=== PATIENT | male | born 1945 | race Caucasian/White ===

== ENCOUNTER 2020-01-09 20:53 | Inpatient (IN) | payer OTHER ==
[2020-01-09 21:14] VITALS: BMI 26.6
[2020-01-09] MEDS ORDERED: SODIUM CHLORIDE 0.9% 500 ML INFUS.BAG IV ONE (21:18)
[2020-01-09] MEDS ORDERED: ACETAMINOPHEN 1000 MG/100 ML VIAL (NON FORMULARY) IVPB ONE (21:18)
--- NOTE | 2020-01-09 21:21 | PDOC ---
History of Present Illness - General Chief Complaint: SIRS, Suspected/Possible Stated Complaint: CHEST PAIN Time Seen by Provider: 01/09/20 21:06 - History of Present Illness Initial Comments: Randy Platt is a 74 y/o male with PMH significant for HTN, HLD, DM, presenting today fever and cough for the past couple of days. Per daughter she noticed that he was not acting like himself. Brought him to urgent care where he was found to be hypoxic 93% and sent to ED by EMS. Pt reports cough over the past few days but denies chest pain or shortness of breath. No headache. Febrile on presentation. No dizziness. No abd pain. No dysuria/diarrhea. No nausea/vomiting. Denies sick contacts. Retired. SocHx: lives alone, 40 pack year smoking hx, snorts heroin every few weeks, no IVDA Past History - Medical History Allergies/Adverse Reactions: Allergies Allergy/AdvReac Type Severity Reaction Status Date / Time No Known Allergies Allergy Verified 01/09/20 21:14 Home Medications: Ambulatory Orders Ergocalciferol [Drisdol -] 50,000 unit PO WEEKLY 01/11/14 Fluocinonide 0.05% Gel [Lidex 0.05% Gel -] 1 applic TP DAILY 01/11/14 Lisinopril/Hydrochlorothiazide [Lisinopril-Hctz 20-25 mg Tab] 1 each PO DAILY 01/11/14 Methadone HCl 80 mg PO DAILY 01/11/14 Quetiapine Fumarate [Seroquel -] 100 mg PO HS 01/11/14 Zolpidem Tartrate [Ambien] 10 mg PO HS 08/01/14 Nicotine Patch [Nicoderm Patch -] 1 patch TD DAILY #30 patch 05/06/16 Acetaminophen 325 mg PO QID 06/20/16 Baclofen [Lioresal -] 10 mg PO TID 06/20/16 Gabapentin [Neurontin -] 400 mg PO Q8H 06/20/16 Quetiapine Fumarate [Seroquel -] 50 mg PO HS #30 tablet 06/16/18 Amlodipine Besylate [Norvasc -] 10 mg PO DAILY 01/10/20 Asthma: No CVA: No COPD: No Diabetes: Yes HTN: Yes Hypercholesterolemia: Yes Liver Disease: No Seizures: No - Surgical History Abdominal Surgery: No Appendectomy: No Cardiac Surgery: No Cholecystectomy: No Lung Surgery: No Orthopedic Surgery: No - Psycho-Social/Smoking History Smoking History: Current every day smoker Have you smoked in the past 12 months: Yes Number of Cigarettes Smoked Daily: 20 Information on smoking cessation initiated: Yes 'Breaking Loose' booklet given: 05/01/15 (given previous visit) - Substance Abuse Hx (Audit-C & DAST Scrn) How often the patient has a drink containing alcohol: Never Score: In Men: 4 or > Positive; In Women: 3 or > Positive: 0 Screen Result (Pos requires Nsg. Audit-10AR): Negative In the last yr the pt used illegal drug/Rx for NonMed reason: No Score: Yes response is considered Positive: 0 Screen Result (Positive result requires Nsg. DAST-10): Negative Review of Systems - Review of Systems Comments:: GENERAL/CONSTITUTIONAL: Reports fever. No chills. No weakness._ HEAD, EYES, EARS, NOSE AND THROAT: No change in vision. No change in hearing. No sore throat._ CARDIOVASCULAR: No chest pain or shortness of breath_ RESPIRATORY: Reports cough. GASTROINTESTINAL: No nausea, vomiting, diarrhea or constipation._ GENITOURINARY: No dysuria, frequency, or change in urination._ MUSCULOSKELETAL: No joint or muscle swelling or pain. No neck pain. SKIN: No rash_ NEUROLOGIC: No headache, vertigo, loss of consciousness, or change in strength/sensation._ ENDOCRINE: No increased thirst. No abnormal weight change_ HEMATOLOGIC/LYMPHATIC: No anemia, easy bleeding, or history of blood clots._ ALLERGIC/IMMUNOLOGIC: No hives or skin allergy._ *Physical Exam - Vital Signs Last Vital Signs Temp Pulse Resp BP Pulse Ox 100.3 F H 95 H 18 162/96 95 01/09/20 21:12 01/09/20 21:12 01/09/20 21:12 01/09/20 21:12 01/09/20 21:12 - Physical Exam GENERAL: Awake, alert, and oriented to person/place/time, in no acute distress_ HEAD: No signs of trauma, normocephalic, atraumatic _ EYES: PERRLA, EOMI, sclera anicteric, conjunctiva clear_ ENT: Hearing grossly normal, nares patent, oropharynx clear without exudates. No uvular deviation. Moist mucosa_ NECK: Normal ROM, supple, no lymphadenopathy, JVD, or masses_ LUNGS: No distress, speaks in full sentences, clear to auscultation bilaterally _ HEART: Regular rate and rhythm, normal S1 and S2, no murmurs appreciated, peripheral pulses normal and equal bilaterally._ ABDOMEN: Soft, nontender, protuberant, normoactive bowel sounds. No guarding, no rebound. No masses_ EXTREMITIES: Normal inspection, Normal range of motion, no edema. No clubbing or cyanosis_ NEUROLOGICAL: Cranial nerves II through XII grossly intact. Normal speech, normal gait, no focal sensorimotor deficits _ SKIN: Warm, Dry, normal turgor, no rashes or lesions noted_ ED Treatment Course - LABORATORY CBC & Chemistry Diagram: 01/10/20 09:43 01/10/20 09:43 - RADIOLOGY Radiology Studies Ordered: Category Date Time Status CHEST X-RAY PORTABLE* [RAD] Stat Radiology 01/09/20 21:16 Ordered Medical Decision Making - Medical Decision Making 74M hx of HTN HLD DM presenting today with fever, cough, and malaise for the past few days. Sent in from urgent care for hypoxia. No shortness of breath or tachypnea. DDX includes PNA vs UTI vs sepsis. -cbc, cmp -ekg, trop, cxr -lactic -coags -ua, ucx -blood cx -vbg -fluids -tylenol 01/09/20 22:57 Labs reviewed. Laboratory Last Values WBC 7.2 K/mm3 (4.0-10.0) 01/09/20 21:11 RBC 4.64 M/mm3 (4.00-5.60) 01/09/20 21:11 Hgb 14.6 GM/dL (11.7-16.9) 01/09/20 21:11 Hct 42.9 % (35.4-49) 01/09/20 21:11 MCV 92.4 fl (80-96) 01/09/20 21:11 MCH 31.5 pg (25.7-33.7) 01/09/20 21:11 MCHC 34.1 g/dl (32.0-35.9) 01/09/20 21:11 RDW 14.1 % (11.9-15.9) 01/09/20 21:11 Plt Count 329 K/MM3 (134-434) 01/09/20 21:11 MPV 7.3 fl (7.5-11.1) L D 01/09/20 21:11 Absolute Neuts (auto) 3.6 K/mm3 (1.5-8.0) 01/09/20 21:11 Neutrophils % 50.7 % (42.8-82.8) 01/09/20 21:11 Lymphocytes % 38.6 % (8-40) 01/09/20 21:11 Monocytes % 9.4 % (3.8-10.2) 01/09/20 21:11 Eosinophils % 1.1 % (0-4.5) 01/09/20 21:11 Basophils % 0.2 % (0-2.0) 01/09/20 21:11 Nucleated RBC % 0 % (0-0) 01/09/20 21:11 Sodium 137 mmol/L (136-145) 01/09/20 21:11 Potassium 3.9 mmol/L (3.5-5.1) 01/09/20 21:11 Chloride 102 mmol/L (98-107) 01/09/20 21:11 Carbon Dioxide 29 mmol/L (21-32) 01/09/20 21:11 Anion Gap 6 MMOL/L (8-16) L 01/09/20 21:11 BUN 10.6 mg/dL (7-18) 01/09/20 21:11 Creatinine 0.9 mg/dL (0.55-1.3) 01/09/20 21:11 Est GFR (CKD-EPI)AfAm 97.86 01/09/20 21:11 Est GFR (CKD-EPI)NonAf 84.43 01/09/20 21:11 Random Glucose 96 mg/dL (74-106) 01/09/20 21:11 Lactic Acid 1.3 mmol/L (0.4-2.0) 01/09/20 22:00 Calcium 9.0 mg/dL (8.5-10.1) 01/09/20 21:11 Total Bilirubin 0.6 mg/dL (0.2-1) 01/09/20 21:11 AST 30 U/L (15-37) 01/09/20 21:11 ALT 62 U/L (13-61) H 01/09/20 21:11 Alkaline Phosphatase 80 U/L (45-117) 01/09/20 21:11 Troponin I < 0.02 ng/ml (0.00-0.05) 01/09/20 21:11 Total Protein 7.6 g/dl (6.4-8.2) 01/09/20 21:11 Albumin 3.4 g/dl (3.4-5.0) 01/09/20 21:11 01/09/20 23:38 UA reviewed. Laboratory Last Values WBC 7.2 K/mm3 (4.0-10.0) 01/09/20 21:11 RBC 4.64 M/mm3 (4.00-5.60) 01/09/20 21:11 Hgb 14.6 GM/dL (11.7-16.9) 01/09/20 21:11 Hct 42.9 % (35.4-49) 01/09/20 21:11 MCV 92.4 fl (80-96) 01/09/20 21:11 MCH 31.5 pg (25.7-33.7) 01/09/20 21:11 MCHC 34.1 g/dl (32.0-35.9) 01/09/20 21:11 RDW 14.1 % (11.9-15.9) 01/09/20 21:11 Plt Count 329 K/MM3 (134-434) 01/09/20 21:11 MPV 7.3 fl (7.5-11.1) L D 01/09/20 21:11 Absolute Neuts (auto) 3.6 K/mm3 (1.5-8.0) 01/09/20 21:11 Neutrophils % 50.7 % (42.8-82.8) 01/09/20 21:11 Lymphocytes % 38.6 % (8-40) 01/09/20 21:11 Monocytes % 9.4 % (3.8-10.2) 01/09/20 21:11 Eosinophils % 1.1 % (0-4.5) 01/09/20 21:11 Basophils % 0.2 % (0-2.0) 01/09/20 21:11 Nucleated RBC % 0 % (0-0) 01/09/20 21:11 PT with INR 12.10 SEC (9.7-13.0) 01/09/20 21:45 INR 1.03 (0.83-1.09) 01/09/20 21:45 PTT (Actin FS) 27.2 SECONDS (25.2-36.5) 01/09/20 21:45 VBG pH 7.399 (7.310-7.410) 01/09/20 21:45 POC VBG pCO2 34.7 mmHg (38-52) L 01/09/20 21:45 POC VBG pO2 49.8 mmHg (28-48) H 01/09/20 21:45 VBG HCO3 21.0 mmol/L (23-29) L 01/09/20 21:45 VBG O2 Sat (Angel) 85.6 % (70-80) H 01/09/20 21:45 VBG Base Excess -3.2 mmol/L (-2-2) L 01/09/20 21:45 Sodium 137 mmol/L (136-145) 01/09/20 21:11 Potassium 3.9 mmol/L (3.5-5.1) 01/09/20 21:11 Chloride 102 mmol/L (98-107) 01/09/20 21:11 Carbon Dioxide 29 mmol/L (21-32) 01/09/20 21:11 Anion Gap 6 MMOL/L (8-16) L 01/09/20 21:11 BUN 10.6 mg/dL (7-18) 01/09/20 21:11 Creatinine 0.9 mg/dL (0.55-1.3) 01/09/20 21:11 Est GFR (CKD-EPI)AfAm 97.86 01/09/20 21:11 Est GFR (CKD-EPI)NonAf 84.43 01/09/20 21:11 Random Glucose 96 mg/dL (74-106) 01/09/20 21:11 Lactic Acid 1.3 mmol/L (0.4-2.0) 01/09/20 22:00 Calcium 9.0 mg/dL (8.5-10.1) 01/09/20 21:11 Total Bilirubin 0.6 mg/dL (0.2-1) 01/09/20 21:11 AST 30 U/L (15-37) 01/09/20 21:11 ALT 62 U/L (13-61) H 01/09/20 21:11 Alkaline Phosphatase 80 U/L (45-117) 01/09/20 21:11 Troponin I < 0.02 ng/ml (0.00-0.05) 01/09/20 21:11 Total Protein 7.6 g/dl (6.4-8.2) 01/09/20 21:11 Albumin 3.4 g/dl (3.4-5.0) 01/09/20 21:11 Urine Color Yellow 01/09/20 22:50 Urine Appearance Clear 01/09/20 22:50 Urine pH 5.0 (5.0-8.0) D 01/09/20 22:50 Ur Specific [place] 1.008 (1.010-1.035) L 01/09/20 22:50 Urine Protein Negative (NEGATIVE) 01/09/20 22:50 Urine Glucose (UA) Negative (NEGATIVE) 01/09/20 22:50 Urine Ketones Negative (NEGATIVE) 01/09/20 22:50 Urine Blood 1+ (NEGATIVE) H 01/09/20 22:50 Urine Nitrite Negative (NEGATIVE) 01/09/20 22:50 Urine Bilirubin Negative (NEGATIVE) 01/09/20 22:50 Urine Urobilinogen 0.2 mg/dL (0.2-1.0) 01/09/20 22:50 Ur Leukocyte Esterase Negative (NEGATIVE) 01/09/20 22:50 Urine WBC (Auto) 3 /uL (0-25.8) 01/09/20 22:50 Urine RBC (Auto) 7 /uL (0-23.9) 01/09/20 22:50 Urine Casts (Auto) 0 /uL (0-3.1) 01/09/20 22:50 U Epithel Cells (Auto) 2 /uL (0-25.1) 01/09/20 22:50 Urine Bacteria (Auto) 27 /uL (0-1359) 01/09/20 22:50 Pt sats 98% on 2L, 94% on room air. Resting comfortably in bed, but feels short of breath on exertion. 01/10/20 01:22 CT chest shows Emphysematous changes are noted predominantly in the upper lobes with multiple small blebs/early honeycombing. There are also mild peripheral infiltrates in the upper lobes as well as infiltrate in the lingular segment of the left upper lobe. Milder infiltrates are noted in the lower lobes. These are of indeterminate age but assume that they are acute if there is a clinical suspicion of pneumonia. There is also peribronchial thickening which could be related to bronchitis/bronchiolitis. No pleural effusions. Cardiomegaly. No pericardial effusions. 8.4 mm nodule along the right major fissure. Recommend follow-up according to established criteria. Osseous structures are intact. Will treat with rocephin and azithromycin. 01/10/20 01:44 Case d/w Dr. Gregory who accepts the patient for admission. Discharge - Discharge Information Problems reviewed: Yes Clinical Impression/Diagnosis: Pneumonia, Fever, Shortness of breath Condition: Stable - Admission Yes - Follow up/Referral - Patient Discharge Instructions - Post Discharge Activity
[2020-01-09] MEDS ORDERED: ACETAMINOPHEN INJECTION 100 ML IVPB ONE (21:50)
[2020-01-09 22:15] LABS: BASO % 0.2 % (0-2.0); RDW 14.1 % (11.9-15.9)
[2020-01-09 22:53] LABS: TOT PROT 7.6 g/dl (6.4-8.2)
[2020-01-09 23:03] LABS: EPI CELLS 2 /uL (0-25.1); HYALINE CASTS 0 /uL (0-3.1); URINE APPEARANCE CLEAR; URINE BACTERIA 27 /uL (0-1359); URINE BILIRUBIN NEGATIVE (NEGATIVE); URINE COLOR YELLOW; URINE GLUCOSE (UA) NEGATIVE (NEGATIVE); URINE KETONE NEGATIVE (NEGATIVE); URINE LEUK ESTERASE NEGATIVE (NEGATIVE); URINE NITRITE NEGATIVE (NEGATIVE); URINE PROTEIN NEGATIVE (NEGATIVE); URINE RBC 7 /uL (0-23.9); URINE UROBILINOGEN 0.2 mg/dL (0.2-1.0); URINE WBC 3 /uL (0-25.8)
[2020-01-09 23:11] LABS: VENOUS BASE EXCESS -3.2 mmol/L (-2-2); VENOUS O2 SATURATION 85.6 % (70-80); VENOUS PCO2 34.7 mmHg (38-52); VENOUS PH 7.399 (7.310-7.410)
[2020-01-09 23:35] LABS: INR 1.03 (0.83-1.09); PROTHROMBIN TIME (PATIENT) 12.1 SEC (9.7-13.0)
[2020-01-09 23:38] LABS: ACTIVATED PTT 27.2 SECONDS (25.2-36.5)
[2020-01-10] MEDS ORDERED: ALBUTEROL SO4 HFA INHALER IH PRN (00:59)
[2020-01-10] MEDS ORDERED: AZITHROMYCIN IVPB 500 MG in DEXTROSE 5%-WATER - 250 ML IVPB ONE (01:21)
[2020-01-10] MEDS ORDERED: CEFTRIAXONE 1 GM in DEXTROSE 5%-WATER - 100 ML IVPB ONE (01:21)
--- NOTE | 2020-01-10 01:22 | PDOC ---
Documentation entered by Brenda Henry SCRIBE, acting as scribe for Oliva Naylor MD. Oliva Naylor MD: This documentation has been prepared by the Carl palmer Brenda, SCRIBE, under my direction and personally reviewed by me in its entirety. I confirm that the documentation accurately reflects all work, treatment, procedures, and medical decision making performed by me. Attending Attestation - Resident Resident Name: Joshua Henriqeuz - ED Attending Attestation I have performed the following: I have examined & evaluated the patient, The case was reviewed & discussed with the resident, I agree w/resident's findings & plan, Exceptions are as noted - HPI HPI: 01/09/20 21:55 this 74 yo male presents because of fever, cough 01/11/20 01:24 01/11/20 01:25 - Physicial Exam PE: 01/11/20 01:24 this 74 yo male daughter because of fever, cough Head normocephalic atraumatic Neck supple Lungs clear to auscultation bilaterally CVS bind2w3 Abdomen no rebound, nontender Extremities full range of motion, no erythema deformities Skin warm and dry Neuro oriented x3 motor strength 5 out of 5 01/11/20 01:24 - Medical Decision Making 01/10/20 01:15 74 yo male with h/o of tobacco 45 pk/yr smoking history, heroin use,NIDDM,HTN with low grade fever and cough ekg nsr @ 77 bpm, no ischemia UA negative cbc unremarkable 01/10/20 01:21 ct scan chest : infiltrates imp community acquired pneumonia, copd will give rocephin, zithromax admission : med.surg Discharge - Discharge Information Problems reviewed: Yes Clinical Impression/Diagnosis: Pneumonia, Fever, Shortness of breath Condition: Stable - Follow up/Referral - Patient Discharge Instructions - Post Discharge Activity
[2020-01-10] MEDS ORDERED: CEFTRIAXONE 1 GM/50 ML BAG ONE (01:23)
--- NOTE | 2020-01-10 01:48 | PN ---
Teaching Attending Note Name of Resident: Jolly Gregory ATTENDING PHYSICIAN STATEMENT I saw and evaluated the patient. I reviewed the resident's note and discussed the case with the resident. I agree with the resident's findings and plan as documented. SUBJECTIVE: Patient is a 74 year old man with a PMH of HTN, HLD, Tobacco use, Diet- controlled DM and Heroin use (snorts) who presents to the ER with fever and cough for the past two days. Per daughter she noticed that he was not acting like himself. Brought him to Urgent care where he was found to be hypoxic (93%) and sent to ER by EMS. Patient reports cough productive of yellowish sputum over the past few days but denies chest pain or shortness of breath. No headache. Febrile on presentation. No dizziness. No abdominal pain. Has 40 pack year smoking history. Patient denies nausea, vomiting, diarrhea, constipation, dysuria, frequency, urgency, melena, hematochezia or hematuria. Denies alcohol, tobacco or illicit drug use. No sick contacts or recent travels. Family history is unremarkable. OBJECTIVE: Alert Vital Signs Period Temp Pulse Resp BP Sys/Joyce Pulse Ox Last 24 Hr 100.3 F 82-95 18-18 144-162/78-96 94-95 HEENT: No Jaundice, eye redness or discharge, PERRLA, EOMI. Normocephalic, atraumatic. External ears are normal and hearing is grossly intact. No nasal discharge. Neck: Supple, nontender. No palpable adenopathy or thyromegaly. No JVD Chest: Good effort. Expiratory wheezing and prolonged expiration; Clear to percussion. Heart: Regular. No S3, rub or murmur Abdomen: Not distended, soft, nontender and no HSM. No rebound or guarding. Normal bowel sounds. Ext: Peripheral pulses intact. No leg edema. Skin: Warm and dry. No petechiae, rash or ecchymosis. Neuro: Alert. Oriented x3. CN 2-12 grossly intact. Sensation grossly intact in all four extremities and DTR are symmetric. Psych: Appropriate mood and affect. Good insight. Home Medications Medication Instructions Recorded Ergocalciferol [Drisdol -] 50,000 unit PO WEEKLY 01/11/14 Fluocinonide 0.05% Gel [Lidex 1 applic TP DAILY 01/11/14 0.05% Gel -] Lisinopril/Hydrochlorothiazide 1 each PO DAILY 01/11/14 [Lisinopril-Hctz 20-25 mg Tab] Methadone HCl 80 mg PO DAILY 01/11/14 Quetiapine Fumarate [Seroquel -] 100 mg PO HS 01/11/14 Zolpidem Tartrate [Ambien] 10 mg PO HS 08/01/14 Nicotine Patch [Nicoderm Patch -] 1 patch TD DAILY #30 patch 05/06/16 Acetaminophen 325 mg PO QID 06/20/16 Baclofen [Lioresal -] 10 mg PO TID 06/20/16 Gabapentin [Neurontin -] 400 mg PO Q8H 06/20/16 Quetiapine Fumarate [Seroquel -] 50 mg PO HS #30 tablet 06/16/18 Abnormal Lab Results 01/09/20 01/09/20 01/09/20 21:11 21:11 21:45 MPV 7.3 L D POC VBG pCO2 34.7 L POC VBG pO2 49.8 H VBG HCO3 21.0 L VBG O2 Sat (Angel) 85.6 H VBG Base Excess -3.2 L Anion Gap 6 L ALT 62 H Ur Specific [place] Urine Blood 01/09/20 22:50 MPV POC VBG pCO2 POC VBG pO2 VBG HCO3 VBG O2 Sat (Angel) VBG Base Excess Anion Gap ALT Ur Specific [place] 1.008 L Urine Blood 1+ H Current Medications Generic Name Dose Route Start Last Admin Trade Name Freq PRN Reason Stop Dose Admin Albuterol Sulfate 2 puff 01/10/20 00:59 Ventolin Hfa Inhaler - IH Q6H PRN SHORT OF BREATH/WHEEZING Enoxaparin Sodium 40 mg 01/10/20 10:00 Lovenox - SQ DAILY [facility] Hydrochlorothiazide 12.5 mg 01/10/20 10:00 Hctz - PO DAILY [facility] Lisinopril 20 mg 01/10/20 22:00 Prinivil PO HS [facility] Nicotine 7 mg 01/10/20 10:00 Nicoderm Patch - TD DAILY [facility] ASSESSMENT AND PLAN: 1. Pneumonia/Rule out COVID-19 infection - CT scan of chest shows - " Emphysematous changes are noted predominantly in the upper lobes with multiple small blebs/early honeycombing. There are also mild peripheral infiltrates in the upper lobes as well as infiltrate in the lingular segment of the left upper lobe. Milder infiltrates are noted in the lower lobes. These are of indeterminate age but assume that they are acute if there is a clinical suspicion of pneumonia. There is also peribronchial thickening which could be related to bronchitis/bronchiolitis. No pleural effusions. Cardiomegaly. No pericardial effusions. 8.4 mm nodule along the right major fissure. Recommend follow-up according to established criteria. Osseous structures are intact." ER staff prescribed Tylenol, Albuterol, IV Ceftriaxone, IV Azithromycin and IV NS for the patient. EKG shows NSR at 77/minute and QTc [address]-T wave changes. No old EKG available for comparison. Initial troponin is negative. Will avoid drugs that may prolong QTc. Viral testing for COVID-19 ordered and patient placed on airborne, droplet and contact isolation. Started on supplemental oxygen via nasal cannula. Consult Pulmonary for lung nodule. Will check D-Dimer, HIV test, treat patient with Zinc sulfate, Pepcid, Vitamin C, IV Ceftriaxone and Azithromycin, Tylenol PRN, Prednisone 40 mg qd, Duoneb and consult ID. Will verify Methadone dose. Will continue comprehensive care for all of patients comorbid conditions. 2. DM Will implement sliding scale insulin regimen. Provide comprehensive diabetes care with patient teaching and counseling about the importance of adherence to prescribed diabetes regimen, euglycemia, eye care and foot care. 3. Tobacco Use Counseled on risks associated with tobacco use. We will provide patient all the necessary assistance to facilitate smoking cessation and prescribe Nicotine patch. 4. DVT prophylaxis - Lovenox 40 mg SQ q 24 hours. 5. Advance directives - Full code
[2020-01-10] MEDS ORDERED: AZITHROMYCIN IVPB 500 MG/250 ML BAG IVPB ONE (01:52)
[2020-01-10] MEDS ORDERED: ALBUTEROL SO4 2.5/IPRATROPIUM 0.5 INH SOL 3 ML VIAL.NEB. NEB PRN (05:56)
--- NOTE | 2020-01-10 06:14 | HP ---
CHIEF COMPLAINT: I haven't been feeling well PCP: none HISTORY OF PRESENT ILLNESS: 74yo M with PMHx of HTN, HLD, DM, and active heroin use who presents with fever, chills, SOB, runny nose, and coughing with yellow secretions. Patient said that symptoms started abotu 1-2 days ago and started "out of nowhere". Denied sick contacts and said that he has been social distancing. Otherwise has not been feeling any associated symptoms including headache, NVD, constipation, dysuria, polyuria. ER course was notable for: (1) T 100.3, sat 94% on RA --> increased to 98% on 2L Recent Travel: none PAST MEDICAL HISTORY: as per HPI PAST SURGICAL HISTORY: none Social History: Smokin pack per 2 days for over 40 years Alcohol: denied Drugs: heroin, once ever 2-3 weeks, last use about a week ago Work: retired, used to work in maintenance Home: lives alone Allergies No Known Allergies Allergy (Verified 01/09/20 21:14) HOME MEDICATIONS: Home Medications Medication Instructions Recorded Ergocalciferol [Drisdol -] 50,000 unit PO WEEKLY 01/11/14 Fluocinonide 0.05% Gel [Lidex 1 applic TP DAILY 01/11/14 0.05% Gel -] Lisinopril/Hydrochlorothiazide 1 each PO DAILY 01/11/14 [Lisinopril-Hctz 20-25 mg Tab] Methadone HCl 80 mg PO DAILY 01/11/14 Quetiapine Fumarate [Seroquel -] 100 mg PO HS 01/11/14 Zolpidem Tartrate [Ambien] 10 mg PO HS 08/01/14 Nicotine Patch [Nicoderm Patch -] 1 patch TD DAILY #30 patch 05/06/16 Acetaminophen 325 mg PO QID 06/20/16 Baclofen [Lioresal -] 10 mg PO TID 06/20/16 Gabapentin [Neurontin -] 400 mg PO Q8H 06/20/16 Quetiapine Fumarate [Seroquel -] 50 mg PO HS #30 tablet 06/16/18 REVIEW OF SYSTEMS as per HPI PHYSICAL EXAMINATION Vital Signs - 24 hr 01/09/20 01/09/20 01/10/20 21:12 23:30 04:29 Temperature 100.3 F H 98.7 F Pulse Rate 95 H Pulse Rate [ 82 76 Left Radial] Respiratory 18 18 18 Rate Blood Pressure 162/96 Blood Pressure 144/78 164/75 [Left Arm] O2 Sat by Pulse 95 94 L 95 Oximetry (%) GENERAL: M, appears mildly younger than stated age, average to overweight body habitus, AAOx4 showing no signs of acute distress HEAD: Normal with no signs of trauma, poor dentition EYES: PERRL, direct and consensual pupillary reflexes intact bilaterally, extraocular movements intact bilaterally, white sclera EARS, NOSE, THROAT: mildly moist mucous membranes NECK: No lymphadenopathy LUNGS: generalized marked expiratory wheezing, on L anterior chest noted mild inspiratory crackles and expiratory rhonchi HEART: RRR, normal S1 and S2 without murmur ABDOMEN: Soft, nontender, protuberant, active bowel sounds EXTREMITIES: 2+ radial and dorsalis pedis pulses, warm to touch bilaterally, nontender to palpation, no peripheral edema appreciated, no active lesions or ulcers noted on feet bilaterally including interdigital web spaces NEUROLOGICAL: Cranial nerves II-XII grossly intact. Normal speech with symmetricalfacial movements. Sensation intact bilaterally PSYCHIATRIC: Cooperative and interactive, responds appropriately. Good eye contact. Appropriate mood SKIN: no rashes or lesions noted Abnormal Lab Results 01/09/20 01/09/20 01/09/20 21:11 21:11 21:45 MPV 7.3 L D POC VBG pCO2 34.7 L POC VBG pO2 49.8 H VBG HCO3 21.0 L VBG O2 Sat (Angel) 85.6 H VBG Base Excess -3.2 L Anion Gap 6 L ALT 62 H Ur Specific [place] Urine Blood 01/09/20 22:50 MPV POC VBG pCO2 POC VBG pO2 VBG HCO3 VBG O2 Sat (Angel) VBG Base Excess Anion Gap ALT Ur Specific [place] 1.008 L Urine Blood 1+ H ASSESSMENT/PLAN: 74yo M with PMHx of HTN, HLD, DM, and active heroin use who presents with fever, chills, SOB, runny nose, and coughing with yellow secretions. Patient admitted for likely COVID (vs undiagnosed COPD vs PNA). #likely COVID > CT findings are bilateral and appear generalized as opposed to focal PNA findings > social history unclear in regards to sick exposure and social distancing > patient receiving ceftriaxone and azithromycin - ordered D-dimer - started zinc, pepsid, prednisone, duonebs, symbicort #HTN - started HCTZ 12.5 am and lisinopril 20 HS #DM > patient not taking any home DM meds - ISS - BGMs ACHS #smoker - nicotine patch #FEN - no standing fluids - replete lytes PRN - sodium/diabetic controlled diet #PPX - DVT: lovenox #Dispo: medSurg Family Medical History Family History: As Documented Visit type - Medication Review Med list reviewed for High Risk Meds patients 65 and older: Yes - Emergency Visit Emergency Visit: Yes ED Registration Date: 01/10/20 Care time: The patient presented to the Emergency Department on the above date and was hospitalized for further evaluation of their emergent condition. - New Patient This patient is new to me today: Yes Date on this admission: 01/10/20 - Critical Care Critical Care patient: No ATTENDING PHYSICIAN STATEMENT I saw and evaluated the patient. I reviewed the resident's note and discussed the case with the resident. I agree with the resident's findings and plan as documented. SUBJECTIVE: OBJECTIVE: ASSESSMENT AND PLAN:
[2020-01-10] MEDS ORDERED: FAMOTIDINE 20 MG TABLET ONE (09:16)
[2020-01-10] MEDS ORDERED: predniSONE 20 MG TABLET (UD) ONE (09:16)
[2020-01-10] MEDS ORDERED: ZINC SULFATE 220 MG CAPSULE (FP) ONE (09:16)
[2020-01-10] MEDS ORDERED: ENOXAPARIN NA (PORCINE) 40 MG/0.4 ML DISP.SYRIN SQ ONE (09:17)
[2020-01-10] MEDS ORDERED: PT OWN MED DRAWER 7, Y5N ONE (09:17)
[2020-01-10] MEDS: INSULIN SLIDING SCALE (NOVOLOG) 1 VIAL SQ SCH ×2 (09:35→12:48)
[2020-01-10] MEDS: HYDROCHLOROTHIAZIDE 12.5 MG CAPSULE (FP) PO SCH (09:36)
[2020-01-10] MEDS: ENOXAPARIN NA (PORCINE) 40 MG/0.4 ML DISP.SYRIN SQ SCH (09:36)
[2020-01-10] MEDS: predniSONE 20 MG TABLET (UD) PO SCH (09:36)
[2020-01-10] MEDS: ASCORBIC ACID 250 MG TABLET (FP) PO SCH (09:37)
[2020-01-10] MEDS: ZINC SULFATE 220 MG CAPSULE (FP) PO SCH ×2 (09:37→22:05)
[2020-01-10] MEDS: NICOTINE 7 MG/24 HOURS TOPICAL PATCH TD SCH (09:37)
[2020-01-10] MEDS: FAMOTIDINE 20 MG TABLET PO SCH (09:37)
[2020-01-10 09:58] LABS: BASO % 0.2 % (0-2.0); EOS % 0.8 % (0-4.5); HEMATOCRIT 37.7 % (35.4-49); HEMOGLOBIN 12.7 GM/dL (11.7-16.9); MCH 29.2 pg (25.7-33.7); MCHC 33.8 g/dl (32.0-35.9); MEAN CELL VOLUME 86.4 fl (80-96); MEAN PLT VOLUME 9.1 fl (7.5-11.1); MONO % 5.2 % (3.8-10.2); NEUT % 86.8 % (42.8-82.8); PLATELET COUNT 226 K/MM3 (134-434); RBC 4.36 M/mm3 (4.00-5.60); RDW 14.2 % (11.9-15.9); WHITE BLOOD COUNT 17.5 K/mm3 (4.0-10.0)
[2020-01-10] MEDS ORDERED: ZINC SULFATE 220 MG CAPSULE (FP) PO SCH (10:00)
[2020-01-10] MEDS ORDERED: PNEUMOC 13-VAL CONJ-DIP CRM/PF 0.5 ML DISP.SYRIN IM ONE (10:00)
[2020-01-10] MEDS ORDERED: FAMOTIDINE 10 MG TABLET PO SCH (10:00)
--- NOTE | 2020-01-10 10:07 | EKG ---
Test Reason : Blood Pressure : / mmHG Vent. Rate : 077 BPM Atrial Rate : 077 BPM P-R Int : 172 ms QRS Dur : 094 ms QT Int : 442 ms P-R-T Axes : 055 041 044 degrees QTc Int : 500 ms NORMAL SINUS RHYTHM MINIMAL VOLTAGE CRITERIA FOR LVH, MAY BE NORMAL VARIANT NONSPECIFIC ST ABNORMALITY PROLONGED QT ABNORMAL ECG NO PREVIOUS ECGS AVAILABLE Confirmed by MD JESSICA, KAREEM ([id number]) on 01/10/2020 10:06:43 AM Referred By: Confirmed By:KAREEM LOPEZ MD
[2020-01-10 10:25] LABS: ALBUMIN 3.3 g/dl (3.4-5.0); BILIRUBIN,TOTAL 0.5 mg/dL (0.2-1); BLOOD UREA NITROGEN 29.2 mg/dL (7-18); CALCIUM 8.6 mg/dL (8.5-10.1); CREATININE 1.6 mg/dL (0.55-1.3); PHOSPHOROUS 2.2 mg/dL (2.5-4.9); TOT PROT 6.8 g/dl (6.4-8.2)
--- NOTE | 2020-01-10 15:07 | PN ---
Progress Note (short form) - Note Progress Note: PULMONARY CONSULTATION DICTATED 01/10/20 IMP FEVER,DYSPNEA SUSPECTED COVID19 SCATTERED BILATERAL PATCHY GROUND GLASS INFILTRATES COPD DM HTN SUBSTANCE ABUSE MEDIASTINAL ADENOPATHY LIKELY REACTIVE PETER PLAN SUPPLEMENTAL O2 INHALED BRONCHODILATORS ABX COVID PCR PENDING MONITOR INFLAMMATORY MARKERS MONITOR LYTES,RENAL FUNCTION IVF F/U CHEST CT OUTPATIENT DR GOODMAN Problem List - Problems (1) Suspected COVID-19 virus infection Code(s): Z20.828 - CONTACT W AND EXPOSURE TO OTH VIRAL COMMUNICABLE DISEASES (2) High blood pressure Code(s): I10 - ESSENTIAL (PRIMARY) HYPERTENSION (3) Nicotine dependence Code(s): F17.200 - NICOTINE DEPENDENCE, UNSPECIFIED, UNCOMPLICATED (4) HLD (hyperlipidemia) Code(s): E78.5 - HYPERLIPIDEMIA, UNSPECIFIED
[2020-01-10 15:17] LABS: HEMOGLOBIN 13.8 GM/dL (11.7-16.9); MCH 29.5 pg (25.7-33.7); MEAN CELL VOLUME 85.7 fl (80-96); RBC 4.67 M/mm3 (4.00-5.60); WHITE BLOOD COUNT 15.8 K/mm3 (4.0-10.0)
[2020-01-10 15:18] LABS: MCHC 34.4 g/dl (32.0-35.9); MEAN PLT VOLUME 9.4 fl (7.5-11.1); NEUT % 92.1 % (42.8-82.8); PLATELET COUNT 255 K/MM3 (134-434)
[2020-01-10 15:19] LABS: EOS % 0.1 % (0-4.5); LYMPH % 3.2 % (8-40); MONO % 4.4 % (3.8-10.2)
[2020-01-10 15:23] LABS: PLATELET ESTIMATE NORMAL
[2020-01-10 15:30] LABS: POTASSIUM 4.6 mmol/L (3.5-5.1)
[2020-01-10 15:31] LABS: ALBUMIN 3.9 g/dl (3.4-5.0)
[2020-01-10 15:33] LABS: BILIRUBIN,TOTAL 0.5 mg/dL (0.2-1)
[2020-01-10] MEDS ORDERED: METHADONE HCL 40 MG DISPERSABLE TABLET PO ONE (15:58)
--- NOTE | 2020-01-10 16:19 | PN ---
Physical Exam: SUBJECTIVE: Patient seen and examined at bedside, he reports that he has sore throat with fevers for 1 day. admits to SOB when lying down, denies any sick/covid contact, stays home, not working. Denies any changes in vision, bowel/urinary habits, chills, active SOB, chest pain. OBJECTIVE: Vital Signs Period Temp Pulse Resp BP Sys/Joyce Pulse Ox Last 24 Hr 98.1 F-100.3 F 74-95 18-188 144-178/56-96 94-96 GENERAL: AAOx3, in no acute distress HEENT: NCAT, PERRLA, EOMI, sclera anicteric, conjunctiva clear, wearing a mask NECK: Normal ROM, supple, no lymphadenopathy, JVD, or masses LUNGS: Decreased breath sounds b/l in all lung robles, Expiratory wheeze in b/l upper lung robles no rhonchi/ rales. No distress, speaks in full sentences. No increased work of breathing. HEART: RRR, normal S1 S2, no M/R/G, peripheral pulses 2+ and equal b/l ABDOMEN: Soft, non-tender, + BS. No guarding or rebound. Midline abdominal hernia MSK: ROM WNL, NO CVA tenderness EXTREMITIES: Normal inspection. No peripheral edema. No clubbing or cyanosis. NEUROLOGICAL: CN II-XII intact. Normal speech, gait not observed, no focal sensorimotor deficits. PSYCH: Normal mood, normal affect. SKIN: Warm, Dry, normal turgor, no rashes or lesions noted Laboratory Results - last 24 hr 01/09/20 01/09/20 01/09/20 21:11 21:11 21:11 WBC 7.2 RBC 4.64 Hgb 14.6 Hct 42.9 MCV 92.4 MCH 31.5 MCHC 34.1 RDW 14.1 Plt Count 329 MPV 7.3 L D Absolute Neuts (auto) 3.6 Neutrophils % 50.7 Lymphocytes % 38.6 Monocytes % 9.4 Eosinophils % 1.1 Basophils % 0.2 Nucleated RBC % 0 PT with INR INR PTT (Actin FS) D-Dimer VBG pH POC VBG pCO2 POC VBG pO2 VBG HCO3 VBG O2 Sat (Angel) VBG Base Excess Sodium 137 Potassium 3.9 Chloride 102 Carbon Dioxide 29 Anion Gap 6 L BUN 10.6 Creatinine 0.9 Est GFR (CKD-EPI)AfAm 97.86 Est GFR (CKD-EPI)NonAf 84.43 POC Glucometer Random Glucose 96 Lactic Acid Calcium 9.0 Phosphorus Magnesium Ferritin Total Bilirubin 0.6 AST 30 ALT 62 H Alkaline Phosphatase 80 LD Total Troponin I < 0.02 C-Reactive Protein Total Protein 7.6 Albumin 3.4 Urine Color Urine Appearance Urine pH Ur Specific Ames Urine Protein Urine Glucose (UA) Urine Ketones Urine Blood Urine Nitrite Urine Bilirubin Urine Urobilinogen Ur Leukocyte Esterase Urine WBC (Auto) Urine RBC (Auto) Urine Casts (Auto) U Epithel Cells (Auto) Urine Bacteria (Auto) HIV Ag/Ab Combo Qual 01/09/20 01/09/20 01/09/20 21:45 21:45 22:00 WBC RBC Hgb Hct MCV MCH MCHC RDW Plt Count MPV Absolute Neuts (auto) Neutrophils % Lymphocytes % Monocytes % Eosinophils % Basophils % Nucleated RBC % PT with INR 12.10 INR 1.03 PTT (Actin FS) 27.2 D-Dimer VBG pH 7.399 POC VBG pCO2 34.7 L POC VBG pO2 49.8 H VBG HCO3 21.0 L VBG O2 Sat (Angel) 85.6 H VBG Base Excess -3.2 L Sodium Potassium Chloride Carbon Dioxide Anion Gap BUN Creatinine Est GFR (CKD-EPI)AfAm Est GFR (CKD-EPI)NonAf POC Glucometer Random Glucose Lactic Acid 1.3 Calcium Phosphorus Magnesium Ferritin Total Bilirubin AST ALT Alkaline Phosphatase LD Total Troponin I C-Reactive Protein Total Protein Albumin Urine Color Urine Appearance Urine pH Ur Specific Ames Urine Protein Urine Glucose (UA) Urine Ketones Urine Blood Urine Nitrite Urine Bilirubin Urine Urobilinogen Ur Leukocyte Esterase Urine WBC (Auto) Urine RBC (Auto) Urine Casts (Auto) U Epithel Cells (Auto) Urine Bacteria (Auto) HIV Ag/Ab Combo Qual 01/09/20 01/10/20 01/10/20 22:50 09:28 09:43 WBC 17.5 H RBC 4.36 Hgb 12.7 Hct 37.7 MCV 86.4 D MCH 29.2 MCHC 33.8 RDW 14.2 Plt Count 226 D MPV 9.1 D Absolute Neuts (auto) 15.2 H Neutrophils % 86.8 H D Lymphocytes % 7.0 L D Monocytes % 5.2 Eosinophils % 0.8 Basophils % 0.2 Nucleated RBC % 0 PT with INR INR PTT (Actin FS) D-Dimer VBG pH POC VBG pCO2 POC VBG pO2 VBG HCO3 VBG O2 Sat (Angel) VBG Base Excess Sodium Potassium Chloride Carbon Dioxide Anion Gap BUN Creatinine Est GFR (CKD-EPI)AfAm Est GFR (CKD-EPI)NonAf POC Glucometer 106 Random Glucose Lactic Acid Calcium Phosphorus Magnesium Ferritin Total Bilirubin AST ALT Alkaline Phosphatase LD Total Troponin I C-Reactive Protein Total Protein Albumin Urine Color Yellow Urine Appearance Clear Urine pH 5.0 D Ur Specific Ames 1.008 L Urine Protein Negative Urine Glucose (UA) Negative Urine Ketones Negative Urine Blood 1+ H Urine Nitrite Negative Urine Bilirubin Negative Urine Urobilinogen 0.2 Ur Leukocyte Esterase Negative Urine WBC (Auto) 3 Urine RBC (Auto) 7 Urine Casts (Auto) 0 U Epithel Cells (Auto) 2 Urine Bacteria (Auto) 27 HIV Ag/Ab Combo Qual 01/10/20 01/10/20 01/10/20 09:43 09:43 09:43 WBC RBC Hgb Hct MCV MCH MCHC RDW Plt Count MPV Absolute Neuts (auto) Neutrophils % Lymphocytes % Monocytes % Eosinophils % Basophils % Nucleated RBC % PT with INR INR PTT (Actin FS) D-Dimer 1004 H VBG pH POC VBG pCO2 POC VBG pO2 VBG HCO3 VBG O2 Sat (Angel) VBG Base Excess Sodium 139 Potassium 4.0 Chloride 106 Carbon Dioxide 30 Anion Gap 3 L BUN 29.2 H Creatinine 1.6 H Est GFR (CKD-EPI)AfAm 48.81 Est GFR (CKD-EPI)NonAf 42.11 POC Glucometer Random Glucose 112 H Lactic Acid Calcium 8.6 Phosphorus 2.2 L Magnesium 2.0 Ferritin 164.0 Total Bilirubin 0.5 AST 78 H ALT 34 Alkaline Phosphatase 81 LD Total 364 H Troponin I C-Reactive Protein 15.4 H Total Protein 6.8 Albumin 3.3 L Urine Color Urine Appearance Urine pH Ur Specific Ames Urine Protein Urine Glucose (UA) Urine Ketones Urine Blood Urine Nitrite Urine Bilirubin Urine Urobilinogen Ur Leukocyte Esterase Urine WBC (Auto) Urine RBC (Auto) Urine Casts (Auto) U Epithel Cells (Auto) Urine Bacteria (Auto) HIV Ag/Ab Combo Qual Negative 01/10/20 12:03 WBC RBC Hgb Hct MCV MCH MCHC RDW Plt Count MPV Absolute Neuts (auto) Neutrophils % Lymphocytes % Monocytes % Eosinophils % Basophils % Nucleated RBC % PT with INR INR PTT (Actin FS) D-Dimer VBG pH POC VBG pCO2 POC VBG pO2 VBG HCO3 VBG O2 Sat (Angel) VBG Base Excess Sodium Potassium Chloride Carbon Dioxide Anion Gap BUN Creatinine Est GFR (CKD-EPI)AfAm Est GFR (CKD-EPI)NonAf POC Glucometer 103 Random Glucose Lactic Acid Calcium Phosphorus Magnesium Ferritin Total Bilirubin AST ALT Alkaline Phosphatase LD Total Troponin I C-Reactive Protein Total Protein Albumin Urine Color Urine Appearance Urine pH Ur Specific Ames Urine Protein Urine Glucose (UA) Urine Ketones Urine Blood Urine Nitrite Urine Bilirubin Urine Urobilinogen Ur Leukocyte Esterase Urine WBC (Auto) Urine RBC (Auto) Urine Casts (Auto) U Epithel Cells (Auto) Urine Bacteria (Auto) HIV Ag/Ab Combo Qual Active Medications Generic Name Dose Route Start Last Admin Trade Name Freq PRN Reason Stop Dose Admin Albuterol Sulfate 2 puff 01/10/20 00:59 Ventolin Hfa Inhaler - IH Q6H PRN SHORT OF BREATH/WHEEZING Albuterol/Ipratropium 1 amp 01/10/20 05:56 Duoneb - NEB Q6H PRN SHORTNESS OF BREATH Ascorbic Acid 250 mg 01/10/20 10:00 01/10/20 09:37 Vitamin C - PO 250 mg DAILY [facility] Administration Budesonide/Formoterol Fumarate 2 puff 01/10/20 05:58 Symbicort 80/4.5mcg - IH BID PRN SHORT OF BREATH/WHEEZING Enoxaparin Sodium 40 mg 01/10/20 10:00 01/10/20 09:36 Lovenox - SQ 40 mg DAILY [facility] Administration Famotidine 20 mg 01/10/20 10:00 01/10/20 09:37 Pepcid - PO 20 mg DAILY [facility] Administration Hydrochlorothiazide 12.5 mg 01/10/20 10:00 01/10/20 09:36 Hctz - PO 12.5 mg DAILY [facility] Administration Insulin Aspart 1 vial 01/10/20 07:00 01/10/20 12:48 Novolog Vial Sliding Scale - SQ Not Given ACHS [facility] Protocol Lisinopril 20 mg 01/10/20 22:00 Prinivil PO HS [facility] Nicotine 7 mg 01/10/20 10:00 01/10/20 09:37 Nicoderm Patch - TD 7 mg DAILY [facility] Administration Prednisone 40 mg 01/10/20 10:00 01/10/20 09:36 Deltasone - PO 40 mg DAILY [facility] Administration Zinc Sulfate 220 mg 01/10/20 10:00 01/10/20 09:37 Orazinc - PO 220 mg BID [facility] Administration Imaging: Chest CT: - Patchy foci of predominantly groundglass opacity scattered throught the b/l hemithoraces, particularly at the left upper lobe and right middle lobe with associated peribronchial thickening. Mediastinal Lymphadenopathy (1.2cm), most likely reactive. 0.4cm nodule along the right major fissure ASSESSMENT/PLAN: 74 Y M with a PMH of HTN, HLD, Tobacco use, Diet-controlled DM and Heroin use (snorts) who presents to the ER with fever and cough for 2 days and admitted for likely suspected Covid -19 # Presumed COVID-19 - CT noted as above, b/l ground glass opacity - Covid PCR pending - Elevated Inflammatory markers: LD 364, CRP 15.4, D-dimer 1004 - Treated with ceftriaxone and azithromycin, in ER - tolerating room air at this time, supplemental O2 as needed. PRN Symbicort - Pulm consulted, Dr. Villar, recs appreciated #Substance abuse - Uses heroin-snorts - On methadone 87mg - Actively withdrawing today - Consulted Dr. Chaudhari, regarding methadone Spoke to Dr. Chaudhari, recommended 40mg of methadone once. #HTN - Continue with HCTZ-lisinopril FEN - no standing fluids - Continue to monitor electrolytes - sodium/diabetic controlled diet DVT ppx - lovenox sq Dispo - will continue to monitor in MS, trending inflammatory markers and v/s Visit type - Emergency Visit Emergency Visit: Yes ED Registration Date: 01/10/20 Care time: The patient presented to the Emergency Department on the above date and was hospitalized for further evaluation of their emergent condition. - New Patient This patient is new to me today: No - Critical Care Critical Care patient: No - Discharge Referral Referred to [facility] Med [facility] No - Medication Review Med list reviewed for High Risk Meds patients 65 and older: Yes ATTENDING PHYSICIAN STATEMENT I saw and evaluated the patient. I reviewed the resident's note and discussed the case with the resident. I agree with the resident's findings and plan as documented. SUBJECTIVE: OBJECTIVE: ASSESSMENT AND PLAN:
[2020-01-10] MEDS ORDERED: POTASSIUM PHOSPHATE 15 MM in SODIUM CHLORIDE 250 ML IVPB ONE (16:30)
--- NOTE | 2020-01-10 18:03 | CONS ---
DATE OF CONSULTATION: 01/10/2020 PULMONARY CONSULTATION REFERRING PHYSICIAN: Preet Balbuena MD. HISTORY OF PRESENT ILLNESS: The patient is a 74-year-old male with a past medical history of hypertension, hyperlipidemia, diabetes, substance abuse snorts cocaine and heroin, longstanding history of tobacco use, currently still smoking, admitted to [facility] with complaint of fever and cough for a couple of days. Apparently for the past couple of days patient started having increasing cough and fevers. He went to an urgent care center, was noted to be mildly hypoxemic with an O2 saturation of 93%. Patient was sent to [facility] ER by EMS secondary to above. Apparently for the past few days, patient had been coughing, denied any chest pain. Does complain of some shortness of breath, denied any hemoptysis. On admission he underwent a CT scan of the chest which revealed evidence of small bilateral ground glass opacities as well as bilateral paraseptal and emphysematous changes. Patient was admitted, placed on antibiotic therapy and prednisone. PAST MEDICAL HISTORY: Again includes hypertension, hyperlipidemia, diabetes, COPD. SOCIAL HISTORY: No occupational exposures. Positive tobacco use. Currently still smoking. Snorts heroin every few weeks. No IVDA. CURRENT MEDICATIONS: Include: 1. Symbicort 80/4.5 2. Prednisone. 3. Prinivil. 4. Lovenox. 5. NicoDerm. 6. Albuterol. 7. DuoNeb. 8. Pepcid. 9. Oral zinc. 10. Hydrochlorothiazide. 11. Vitamin C. REVIEW OF SYSTEMS: Positive cough, positive fever, positive chills. No chest pain, no palpitations. Positive shortness of breath. PHYSICAL EXAMINATION: General: The patient is a well-developed, well-nourished male awake, alert, mildly tremulous, in no acute distress. He is currently afebrile. Vital Signs: Blood pressure 159/76, respiratory rate 18, O2 saturation is 96% on room air. T-max is 100.3 on January 08. HEENT: Normocephalic, atraumatic. Neck: Supple. Heart: Regular S1, S2. Chest: A few scattered bilateral crackles. Abdomen: Soft, bowel sounds positive. Extremities: No cyanosis, edema. LABORATORY: WBC is 17.5, hemoglobin 12.7, hematocrit 37.7, and platelet count of 226,000. D-dimer is 1004. Blood gas: venous blood gas 7.39, pCO2 of 34, pO2 of 49, bicarbonate of 21. Chemistries: BUN 29, creatinine 1.6. Creatinine level is 164. CRP is 15. LDH is 364. Chest CT again is noted small bilateral ground-glass infiltrates. Mediastinal adenopathy and a 4-cm nodule and right fistula. IMPRESSION: 1. Fever, dyspnea, bilateral ground-glass infiltrates, suspected COVID-19 pneumonia. 2. Diabetes. 3. Hypertension. 4. Mediastinal adenopathy, likely reactive. 5. Acute kidney injury. 6. Chronic obstructive pulmonary disease. Suggest supplemental O2, inhaled bronchodilators, antibiotic therapy, COVID PCR pending, monitor inflammatory markers, monitor electrolytes, renal function, IV fluids, obtain followup chest CT as an outpatient. MATTHEW GOODMAN M.D. [id number] MTDRegina
--- NOTE | 2020-01-10 18:11 | PN ---
Teaching Attending Note Name of Resident: Karen Preciado ATTENDING PHYSICIAN STATEMENT I saw and evaluated the patient. I reviewed the resident's note and discussed the case with the resident. I agree with the resident's findings and plan as documented. SUBJECTIVE: pt seen and examined OBJECTIVE: Last Vital Signs Temp Pulse Resp BP Pulse Ox 98.7 F 74 18 159/76 96 01/10/20 11:03 01/10/20 11:03 01/10/20 15:22 01/10/20 11:03 01/10/20 15:22 GENERAL: Awake, alert, and fully oriented, in no acute distress. HEAD: Normal with no signs of trauma. EYES: Pupils equal, round and reactive to light, sclera anicteric, conjunctiva clear. LUNGS: Breath sounds equal, clear to auscultation bilaterally. No wheezes, and no crackles. No accessory muscle use. HEART: Regular rate and rhythm, normal S1 and S2 ABDOMEN: Soft, nontender, not distended MUSCULOSKELETAL: Normal range of motion at all joints. No bony deformities or tenderness. No CVA tenderness. UPPER EXTREMITIES: 2+ pulses, warm, well-perfused. No cyanosis. No clubbing. No peripheral edema. LOWER EXTREMITIES: 2+ pulses, warm, well-perfused. No calf tenderness. No peripheral edema. NEUROLOGICAL: Cranial nerves II-XII intact. Normal speech. CBCD WBC 17.5 K/mm3 (4.0-10.0) H 01/10/20 09:43 RBC 4.36 M/mm3 (4.00-5.60) 01/10/20 09:43 Hgb 12.7 GM/dL (11.7-16.9) 01/10/20 09:43 Hct 37.7 % (35.4-49) 01/10/20 09:43 MCV 86.4 fl (80-96) 01/10/20 09:43 MCHC 33.8 g/dl (32.0-35.9) 01/10/20 09:43 RDW 14.2 % (11.9-15.9) 01/10/20 09:43 Plt Count 226 K/MM3 (134-434) 01/10/20 09:43 MPV 9.1 fl (7.5-11.1) 01/10/20 09:43 CMP Sodium 139 mmol/L (136-145) 01/10/20 09:43 Potassium 4.0 mmol/L (3.5-5.1) 01/10/20 09:43 Chloride 106 mmol/L (98-107) 01/10/20 09:43 Carbon Dioxide 30 mmol/L (21-32) 01/10/20 09:43 Anion Gap 3 MMOL/L (8-16) L 01/10/20 09:43 BUN 29.2 mg/dL (7-18) H 01/10/20 09:43 Creatinine 1.6 mg/dL (0.55-1.3) H 01/10/20 09:43 Calcium 8.6 mg/dL (8.5-10.1) 01/10/20 09:43 Total Bilirubin 0.5 mg/dL (0.2-1) 01/10/20 09:43 AST 78 U/L (15-37) H 01/10/20 09:43 ALT 34 U/L (13-61) 01/10/20 09:43 Alkaline Phosphatase 81 U/L (45-117) 01/10/20 09:43 Total Protein 6.8 g/dl (6.4-8.2) 01/10/20 09:43 Albumin 3.3 g/dl (3.4-5.0) L 01/10/20 09:43 Active Medications Albuterol Sulfate (Ventolin Hfa Inhaler -) 2 puff IH Q6H PRN PRN Reason: SHORT OF BREATH/WHEEZING Albuterol/Ipratropium (Duoneb -) 1 amp NEB Q6H PRN PRN Reason: SHORTNESS OF BREATH Ascorbic Acid (Vitamin C -) 250 mg PO DAILY [facility] Last Admin: 01/10/20 09:37 Dose: 250 mg Documented by: Budesonide/Formoterol Fumarate (Symbicort 80/4.5mcg -) 2 puff IH BID [facility] Enoxaparin Sodium (Lovenox -) 40 mg SQ DAILY [facility] Last Admin: 01/10/20 09:36 Dose: 40 mg Documented by: Famotidine (Pepcid -) 20 mg PO DAILY [facility] Last Admin: 01/10/20 09:37 Dose: 20 mg Documented by: Hydrochlorothiazide (Hctz -) 12.5 mg PO DAILY [facility] Last Admin: 01/10/20 09:36 Dose: 12.5 mg Documented by: Potassium Phosphate 15 mm/ (Sodium Chloride) 255 mls @ 42.5 mls/hr IVPB ONCE ONE Stop: 01/10/20 22:29 Last Admin: 01/10/20 17:35 Dose: 42.5 mls/hr Documented by: Lisinopril (Prinivil) 20 mg PO [facility] Nicotine (Nicoderm Patch -) 7 mg TD DAILY [facility] Last Admin: 01/10/20 09:37 Dose: 7 mg Documented by: Prednisone (Deltasone -) 40 mg PO DAILY [facility] Last Admin: 01/10/20 09:36 Dose: 40 mg Documented by: Zinc Sulfate (Orazinc -) 220 mg PO BID [facility] Last Admin: 01/10/20 09:37 Dose: 220 mg Documented by: ASSESSMENT AND PLAN: 74 Y M with a PMH of HTN, HLD, Tobacco use, Diet-controlled DM and Heroin use (snorts) who presents to the ER with fever and cough for 2 days and admitted for likely suspected Covid -19 # To rule out SARS-CoV19 pt presented with fever, weakness, productive cough with yellow sputum no sick contacts, active smoker, snorts heroin. CT Patchy foci of predominantly groundglass opacity scattered throught the b/l hemithoraces, particularly at the left upper lobe and right middle lobe with associated peribronchial thickening. Mediastinal Lymphadenopathy (1.2cm), most likely reactive. 0.4cm nodule along the right major fissure, emphysematous changes noted Covid PCR pending daily Ferritin, CRP, LDH, Ddimer Elevated Inflammatory markers, leukocytosis, 100% on room air On ceftriaxone and azithromycin Pulm consult appreciated #Substance abuse withrawal symptoms noted On methadone 40mg Consulted Dr. Chaudhari HTN lung nodule (need CT in 6months as pt is high risk) spoke with pt about substance abuse, smoking,risk of behavior advised abstinence. DVT proph
[2020-01-10] MEDS: LISINOPRIL 5 MG TABLET (FP) PO SCH (22:05)
[2020-01-10] MEDS: BUDESONIDE/FORMETEROL FUMARATE 80/4.5 mcg INHALER IH SCH (22:10)
[2020-01-11] MEDS ORDERED: amLODIPine BESYLATE 5 MG TABLET (FP) PO ONE ×2 (01:22→06:49)
[2020-01-11 09:04] LABS: BASO % 0.2 % (0-2.0); EOS % 0.8 % (0-4.5); HEMOGLOBIN 12.8 GM/dL (11.7-16.9); LYMPH % 8.7 % (8-40); MCH 28.4 pg (25.7-33.7); MCHC 32.9 g/dl (32.0-35.9); MEAN CELL VOLUME 86.1 fl (80-96); MONO % 6.4 % (3.8-10.2); NEUT % 83.9 % (42.8-82.8); PLATELET COUNT 269 K/MM3 (134-434); RBC 4.53 M/mm3 (4.00-5.60); RDW 14.2 % (11.9-15.9); WHITE BLOOD COUNT 18.9 K/mm3 (4.0-10.0)
[2020-01-11 09:36] LABS: POTASSIUM 3.7 mmol/L (3.5-5.1)
[2020-01-11 10:02] LABS: ALBUMIN 3.5 g/dl (3.4-5.0); BILIRUBIN,TOTAL 0.6 mg/dL (0.2-1); BLOOD UREA NITROGEN 25.4 mg/dL (7-18); CALCIUM 8.9 mg/dL (8.5-10.1); CREATININE 1.6 mg/dL (0.55-1.3); MAGNESIUM 1.9 mg/dL (1.8-2.4); TOT PROT 7.2 g/dl (6.4-8.2)
--- NOTE | 2020-01-11 10:11 | PN ---
Progress Note, Physician History of Present Illness: pulmonary alert,less dyspneic,+ cough. covid pcr negative - Current Medication List Current Medications: Active Medications Albuterol Sulfate (Ventolin Hfa Inhaler -) 2 puff IH Q6H PRN PRN Reason: SHORT OF BREATH/WHEEZING Albuterol/Ipratropium (Duoneb -) 1 amp NEB Q6H PRN PRN Reason: SHORTNESS OF BREATH Ascorbic Acid (Vitamin C -) 250 mg PO DAILY [facility] Last Admin: 01/10/20 09:37 Dose: 250 mg Documented by: Budesonide/Formoterol Fumarate (Symbicort 80/4.5mcg -) 2 puff IH BID [facility] Last Admin: 01/10/20 22:10 Dose: 2 puff Documented by: Enoxaparin Sodium (Lovenox -) 40 mg SQ DAILY [facility] Last Admin: 01/10/20 09:36 Dose: 40 mg Documented by: Famotidine (Pepcid -) 20 mg PO DAILY [facility] Last Admin: 01/10/20 09:37 Dose: 20 mg Documented by: Hydrochlorothiazide (Hctz -) 12.5 mg PO DAILY [facility] Last Admin: 01/10/20 09:36 Dose: 12.5 mg Documented by: Azithromycin (Zithromax 500mg Ivpb (Pre-Docked)) 500 mg in 250 mls @ 250 mls/hr IVPB DAILY [facility] Lisinopril (Prinivil) 20 mg PO HS [facility] Last Admin: 01/10/20 22:05 Dose: 20 mg Documented by: Nicotine (Nicoderm Patch -) 7 mg TD DAILY [facility] Last Admin: 01/10/20 09:37 Dose: 7 mg Documented by: Prednisone (Deltasone -) 40 mg PO DAILY [facility] Last Admin: 01/10/20 09:36 Dose: 40 mg Documented by: Zinc Sulfate (Orazinc -) 220 mg PO BID [facility] Last Admin: 01/10/20 22:05 Dose: 220 mg Documented by: - Objective Vital Signs: Vital Signs Temperature 98.5 F 01/11/20 06:30 Pulse Rate 85 01/11/20 06:30 Respiratory Rate 20 01/11/20 06:30 Blood Pressure 188/74 H 01/11/20 06:30 O2 Sat by Pulse Oximetry (%) 94 L 01/11/20 06:30 Constitutional: Yes: Well Nourished, Calm Eyes: Yes: WNL HENT: Yes: WNL Neck: Yes: WNL Cardiovascular: Yes: Regular Rate and Rhythm, S1, S2 Respiratory: Yes: Diminished Gastrointestinal: Yes: Normal Bowel Sounds, Soft Extremities: Yes: WNL Edema: No Labs: CBC, BMP 01/11/20 08:09 01/11/20 08:09 INR, PTT INR 1.03 (0.83-1.09) 01/09/20 21:45 Problem List - Problems (1) Suspected COVID-19 virus infection Code(s): Z20.828 - CONTACT W AND EXPOSURE TO OTH VIRAL COMMUNICABLE DISEASES (2) High blood pressure Code(s): I10 - ESSENTIAL (PRIMARY) HYPERTENSION (3) Nicotine dependence Code(s): F17.200 - NICOTINE DEPENDENCE, UNSPECIFIED, UNCOMPLICATED (4) HLD (hyperlipidemia) Code(s): E78.5 - HYPERLIPIDEMIA, UNSPECIFIED Assessment/Plan IMP FEVER,DYSPNEA improing SUSPECTED COVID19 PCR NEGATIVE SCATTERED BILATERAL PATCHY GROUND GLASS INFILTRATES COPD DM HTN SUBSTANCE ABUSE MEDIASTINAL ADENOPATHY LIKELY REACTIVE PETER PLAN SUPPLEMENTAL O2 INHALED BRONCHODILATORS STEROID TAPER ABX COVID PCR NEGATIVE MONITOR INFLAMMATORY MARKERS MONITOR LYTES,RENAL FUNCTION IVF F/U CHEST CT OUTPATIENT REPEAT COVID DR GOODMAN Problem List - Problems (1) Suspected COVID-19 virus infection Code(s): Z20.828 - CONTACT W AND EXPOSURE TO OTH VIRAL COMMUNICABLE DISEASES (2) High blood pressure Code(s): I10 - ESSENTIAL (PRIMARY) HYPERTENSION (3) Nicotine dependence Code(s): F17.200 - NICOTINE DEPENDENCE, UNSPECIFIED, UNCOMPLICATED (4) HLD (hyperlipidemia) Code(s): E78.5 - HYPERLIPIDEMIA, UNSPECIFIED
[2020-01-11] MEDS ORDERED: METHADONE HCL 10 MG TABLET PO SCH (11:30)
--- NOTE | 2020-01-11 11:35 | CONSULT ---
Consult [facility] Reason for Current Admission/Consult: Methadone Dose Confirmation Referred by:: reuben baumann - History History of Present Illness: 74 year old male with history of opioid dependence on agonist therapy. He is well known to [facility]. He missed 4 days from clinic and was last medicated on 01/06/20 and then admitted to [facility] on 01/09/20. PMH significant for HTN, HLD, DM, presenting today fever and cough for the past couple of days. Per daughter she noticed that he was not acting like himself. Brought him to urgent care where he was found to be hypoxic 93% and sent to ED by EMS. Pt reports cough over the past few days but denies chest pain or shortness of breath. Denies sick contacts. Retired. - History Source History Provided By: Medical Record Limitations to Obtaining History: No Limitations - Alcohol/Substance Use Hx Alcohol Use: No Hx Substance Use: Yes (prior heroin use) Hx Substance Use Treatment: Yes ([facility]) - Past Surgical History Past Surgical History: Yes: None - Significant Medical Findings: As per resident: GENERAL: AAOx3, in no acute distress HEENT: NCAT, PERRLA, EOMI, sclera anicteric, conjunctiva clear, wearing a mask NECK: Normal ROM, supple, no lymphadenopathy, JVD, or masses LUNGS: Decreased breath sounds b/l in all lung robles, Expiratory wheeze in b/l upper lung robles no rhonchi/ rales. No distress, speaks in full sentences. No increased work of breathing. HEART: RRR, normal S1 S2, no M/R/G, peripheral pulses 2+ and equal b/l ABDOMEN: Soft, non-tender, + BS. No guarding or rebound. Midline abdominal hernia MSK: ROM WNL, NO CVA tenderness EXTREMITIES: Normal inspection. No peripheral edema. No clubbing or cyanosis. NEUROLOGICAL: CN II-XII intact. Normal speech, gait not observed, no focal sensorimotor deficits. PSYCH: Normal mood, normal affect. SKIN: Warm, Dry, normal turgor, no rashes or lesions noted Assessment Plan - Diagnosis (1) HLD (hyperlipidemia) Status: Acute (2) Pneumonia Status: Acute (3) Suspected COVID-19 virus infection Status: Acute (4) Chronic renal insufficiency, stage III (moderate) Status: Chronic Comment: fluids, htn control, avoid nsaids (5) High blood pressure Status: Chronic Comment: on meds, sees primary (6) Methadone maintenance therapy patient Status: Chronic Comment: vitaliy Sheryl at [facility] - two opiate positive urine toxicology results (urine should only show oxycodone) - they will work with him on this in the program (7) Nicotine dependence Status: Chronic Comment: counseled cessation - not ready but willing to cut down and try patch - Plan Plan: 1. Opioid Dependence: Patient is a methadone patient at [facility]. Patient got one dose yesterday of 40mg because dose and last date of medication could not be verified. Spoke to resident who put in one dose yesterday. Will input dose with incremental dosing to prior stable dose. He will get 70mg today, 80mg tomorrow and 85mg the following day. His actual stable dose is 87mg of methadone daily. Upon completion of his pneumonia treatment, he can follow up at the [facility]. Dr. Chaudhari
[2020-01-11] MEDS ORDERED: METHADONE 40 MG, METHADONE 30 MG PO ONE (11:45)
[2020-01-11] MEDS: predniSONE 20 MG TABLET (UD) PO SCH (12:29)
[2020-01-11] MEDS: FAMOTIDINE 20 MG TABLET PO SCH (12:29)
[2020-01-11] MEDS: HYDROCHLOROTHIAZIDE 12.5 MG CAPSULE (FP) PO SCH (12:29)
[2020-01-11] MEDS: ENOXAPARIN NA (PORCINE) 40 MG/0.4 ML DISP.SYRIN SQ SCH (12:30)
[2020-01-11] MEDS: ZINC SULFATE 220 MG CAPSULE (FP) PO SCH ×2 (12:30→21:21)
[2020-01-11] MEDS: NICOTINE 7 MG/24 HOURS TOPICAL PATCH TD SCH (12:32)
[2020-01-11] MEDS: BUDESONIDE/FORMETEROL FUMARATE 80/4.5 mcg INHALER IH SCH ×2 (12:38→21:24)
[2020-01-11] MEDS: AZITHROMYCIN IVPB 500 MG/250 ML BAG IVPB SCH (12:49)
[2020-01-11] MEDS ORDERED: METHADONE HCL 10 MG TABLET ONE (13:09)
[2020-01-11] MEDS ORDERED: PT OWN MED DRAWER 7, Y5N ONE ×2 (13:10→21:15)
[2020-01-11] MEDS ORDERED: METHADONE HCL 40 MG DISPERSABLE TABLET ONE (13:10)
[2020-01-11] MEDS: ASCORBIC ACID 250 MG TABLET (FP) PO SCH (13:12)
--- NOTE | 2020-01-11 14:16 | PN ---
Physical Exam: SUBJECTIVE: Patient seen and examined at bedside, no new complaints OBJECTIVE: Vital Signs Period Temp Pulse Resp BP Sys/Joyce Pulse Ox Last 24 Hr 98.0 F-99.1 F 80-89 18-20 157-188/71-113 94-96 GENERAL: AAOx3, in no acute distress HEENT: NCAT, PERRLA, EOMI, sclera anicteric, conjunctiva clear, wearing a mask NECK: Normal ROM, supple, no lymphadenopathy, JVD, or masses LUNGS: Decreased breath sounds b/l in all lung robles, Expiratory wheeze in b/l upper lung robles no rhonchi/ rales. No distress, speaks in full sentences. No increased work of breathing. HEART: RRR, normal S1 S2, no M/R/G, peripheral pulses 2+ and equal b/l ABDOMEN: Soft, non-tender, + BS. No guarding or rebound. Midline abdominal hernia MSK: ROM WNL, NO CVA tenderness EXTREMITIES: Normal inspection. No peripheral edema. No clubbing or cyanosis. NEUROLOGICAL: CN II-XII intact. Normal speech, gait not observed, no focal sensorimotor deficits. PSYCH: Normal mood, normal affect. SKIN: Warm, Dry, normal turgor, no rashes or lesions noted Laboratory Results - last 24 hr 01/09/20 01/09/20 01/09/20 21:11 21:11 21:45 WBC 15.8 H RBC 4.67 Hgb 13.8 Hct 40.0 MCV 85.7 MCH 29.5 MCHC 34.4 RDW Plt Count 255 MPV 9.4 Absolute Neuts (auto) 14.5 H Neutrophils % 92.1 H Neutrophils % (Manual) 76.0 Band Neutrophils % 14.0 Lymphocytes % 3.2 L Lymphocytes % (Manual) 4.0 L Monocytes % 4.4 Monocytes % (Manual) 5 Eosinophils % 0.1 Eosinophils % (Manual) 0.0 Basophils % Basophils % (Manual) 0.0 Nucleated RBC % Platelet Estimate Normal VBG pH 7.399 POC VBG pCO2 34.7 L POC VBG pO2 49.8 H VBG HCO3 21.0 L VBG O2 Sat (Angel) 85.6 H VBG Base Excess -3.2 L Sodium 135 L Potassium 4.6 Chloride 100 Carbon Dioxide 30 Anion Gap BUN 33.0 H Creatinine 2.0 H Est GFR (CKD-EPI)AfAm 45.69 Est GFR (CKD-EPI)NonAf 39.42 POC Glucometer Random Glucose 106 Calcium Phosphorus Magnesium Total Bilirubin 0.5 AST 76 H ALT 33 Alkaline Phosphatase 95 Total Protein Albumin 3.9 COVID-19 (SUSAN) 01/09/20 01/10/20 01/11/20 23:20 09:43 01:30 WBC 17.5 H RBC 4.36 Hgb 12.7 Hct 37.7 MCV 86.4 MCH 29.2 MCHC 33.8 RDW 14.2 Plt Count 226 MPV 9.1 Absolute Neuts (auto) 15.2 H Neutrophils % 86.8 H Neutrophils % (Manual) Band Neutrophils % Lymphocytes % 7.0 L D Lymphocytes % (Manual) Monocytes % 5.2 Monocytes % (Manual) Eosinophils % 0.8 D Eosinophils % (Manual) Basophils % 0.2 Basophils % (Manual) Nucleated RBC % 0 Platelet Estimate VBG pH POC VBG pCO2 POC VBG pO2 VBG HCO3 VBG O2 Sat (Angel) VBG Base Excess Sodium Potassium Chloride Carbon Dioxide Anion Gap BUN Creatinine Est GFR (CKD-EPI)AfAm Est GFR (CKD-EPI)NonAf POC Glucometer 102 Random Glucose Calcium Phosphorus Magnesium Total Bilirubin AST ALT Alkaline Phosphatase Total Protein Albumin COVID-19 (SUSAN) Not detected 01/11/20 01/11/20 08:09 08:09 WBC 18.9 H RBC 4.53 Hgb 12.8 Hct 39.0 MCV 86.1 MCH 28.4 MCHC 32.9 RDW 14.2 Plt Count 269 MPV 9.0 Absolute Neuts (auto) 15.9 H Neutrophils % 83.9 H Neutrophils % (Manual) Band Neutrophils % Lymphocytes % 8.7 D Lymphocytes % (Manual) Monocytes % 6.4 Monocytes % (Manual) Eosinophils % 0.8 Eosinophils % (Manual) Basophils % 0.2 Basophils % (Manual) Nucleated RBC % 0 Platelet Estimate VBG pH POC VBG pCO2 POC VBG pO2 VBG HCO3 VBG O2 Sat (Angel) VBG Base Excess Sodium 139 Potassium 3.7 Chloride 103 Carbon Dioxide 29 Anion Gap 7 L BUN 25.4 H Creatinine 1.6 H Est GFR (CKD-EPI)AfAm 48.81 Est GFR (CKD-EPI)NonAf 42.11 POC Glucometer Random Glucose 85 Calcium 8.9 Phosphorus 3.0 Magnesium 1.9 Total Bilirubin 0.6 AST 76 H ALT 38 Alkaline Phosphatase 81 Total Protein 7.2 Albumin 3.5 COVID-19 (SUSAN) Active Medications Generic Name Dose Route Start Last Admin Trade Name Freq PRN Reason Stop Dose Admin Albuterol Sulfate 2 puff 01/10/20 00:59 Ventolin Hfa Inhaler - IH Q6H PRN SHORT OF BREATH/WHEEZING Albuterol/Ipratropium 1 amp 01/10/20 05:56 Duoneb - NEB Q6H PRN SHORTNESS OF BREATH Ascorbic Acid 250 mg 01/10/20 10:00 01/11/20 13:12 Vitamin C - PO 250 mg DAILY NICKOLAS Administration Budesonide/Formoterol Fumarate 2 puff 01/10/20 22:00 01/11/20 12:38 Symbicort 80/4.5mcg - IH 2 puff BID NICKOLAS Administration Enoxaparin Sodium 40 mg 01/10/20 10:00 01/11/20 12:30 Lovenox - SQ 40 mg DAILY NICKOLAS Administration Famotidine 20 mg 01/10/20 10:00 01/11/20 12:29 Pepcid - PO 20 mg DAILY NICKOLAS Administration Hydrochlorothiazide 12.5 mg 01/10/20 10:00 01/11/20 12:29 Hctz - PO 12.5 mg DAILY NICKOLAS Administration Azithromycin 500 mg in 250 mls @ 250 mls/hr 01/11/20 10:00 01/11/20 12:49 Zithromax 500mg Ivpb (Pre-Docked) IVPB 250 mls/hr DAILY NICKOLAS Administration Ceftriaxone Sodium 1 gm/ 50 mls @ 100 mls/hr 01/11/20 13:59 Dextrose IVPB DAILY NICKOLAS Lisinopril 20 mg 01/10/20 22:00 01/10/20 22:05 Prinivil PO 20 mg HS NICKOLAS Administration Methadone HCl 80 mg/ 80 mg 01/12/20 06:00 PO 01/12/20 06:01 ONCE ONE Methadone HCl 80 mg/ Methadone 85 mg 01/12/20 06:00 HCl 5 mg PO 0600 NICKOLAS Nicotine 7 mg 01/10/20 10:00 01/11/20 12:32 Nicoderm Patch - TD 7 mg DAILY NICKOLAS Administration Prednisone 40 mg 01/10/20 10:00 01/11/20 12:29 Deltasone - PO 40 mg DAILY NICKOLAS Administration Zinc Sulfate 220 mg 01/10/20 10:00 01/11/20 12:30 Orazinc - PO 220 mg BID NICKOLAS Administration Imaging: Chest CT: - Patchy foci of predominantly groundglass opacity scattered throught the b/l hemithoraces, particularly at the left upper lobe and right middle lobe with associated peribronchial thickening. Mediastinal Lymphadenopathy (1.2cm), most likely reactive. 0.4cm nodule along the right major fissure ASSESSMENT/PLAN: 74 Y M with a PMH of HTN, HLD, Tobacco use, Diet-controlled DM and Heroin use (snorts) who presents to the ER with fever and cough for 2 days and admitted for likely suspected Covid -19 #Presumed COVID-19 - Covid PCR is negative x 1 - CT noted as above, b/l ground glass opacity - Elevated Inflammatory markers: LD 364, CRP 15.4, D-dimer 1004 - Blood culture: G + cocci in clusters - Continue with ceftriaxone and azithromycin, in ER - tolerating room air at this time, supplemental O2 as needed. PRN Symbicort - Pulm consulted, Dr. Villar, recs appreciated #Substance abuse - Uses heroin-snorts - On methadone 87mg - Consulted Dr. Chaudhari, regarding methadone, recs appreciated Will input dose with incremental dosing to prior stable dose. He will get 70mg today, 80mg tomorrow and 85mg the following day #Lung nodule - Chest CT: 0.4cm nodule along the right major fissure - No previous imaging - will need outpatient CT scan in 6months as pt is high risk #Hx of HTN - Continue with HCTZ-lisinopril FEN - no standing fluids - Continue to monitor electrolytes - sodium/diabetic controlled diet DVT ppx - lovenox sq Dispo - will continue to monitor in MS, trending inflammatory markers and v/s Visit type - Emergency Visit Emergency Visit: Yes ED Registration Date: 01/10/20 Care time: The patient presented to the Emergency Department on the above date and was hospitalized for further evaluation of their emergent condition. - New Patient This patient is new to me today: No - Critical Care Critical Care patient: No - Discharge Referral Referred to [facility] Med P.C.: No - Medication Review Med list reviewed for High Risk Meds patients 65 and older: Yes ATTENDING PHYSICIAN STATEMENT I saw and evaluated the patient. I reviewed the resident's note and discussed the case with the resident. I agree with the resident's findings and plan as documented. SUBJECTIVE: OBJECTIVE: ASSESSMENT AND PLAN:
--- NOTE | 2020-01-11 14:23 | PN ---
Teaching Attending Note Name of Resident: Karen Preciado ATTENDING PHYSICIAN STATEMENT I saw and evaluated the patient. I reviewed the resident's note and discussed the case with the resident. I agree with the resident's findings and plan as documented. SUBJECTIVE: pt seen and examined, reported that he's feeling weaker OBJECTIVE: Last Vital Signs Temp Pulse Resp BP Pulse Ox 98.5 F 85 20 188/74 H 94 L 01/11/20 06:30 01/11/20 06:30 01/11/20 06:30 01/11/20 06:30 01/11/20 06:30 GENERAL: Awake, alert, and fully oriented, in no acute distress. LUNGS: Breath sounds equal, clear to auscultation bilaterally. No wheezes, and no crackles. No accessory muscle use. HEART: Regular rate and rhythm, normal S1 and S2 ABDOMEN: Soft, nontender, not distended MUSCULOSKELETAL: Normal range of motion at all joints. No bony deformities or tenderness. No CVA tenderness. LOWER EXTREMITIES: 2+ pulses, warm, well-perfused. No calf tenderness. No peripheral edema. NEUROLOGICAL: Cranial nerves II-XII intact. Normal speech. CBCD WBC 18.9 K/mm3 (4.0-10.0) H 01/11/20 08:09 RBC 4.53 M/mm3 (4.00-5.60) 01/11/20 08:09 Hgb 12.8 GM/dL (11.7-16.9) 01/11/20 08:09 Hct 39.0 % (35.4-49) 01/11/20 08:09 MCV 86.1 fl (80-96) 01/11/20 08:09 MCHC 32.9 g/dl (32.0-35.9) 01/11/20 08:09 RDW 14.2 % (11.9-15.9) 01/11/20 08:09 Plt Count 269 K/MM3 (134-434) 01/11/20 08:09 MPV 9.0 fl (7.5-11.1) 01/11/20 08:09 CMP Sodium 139 mmol/L (136-145) 01/11/20 08:09 Potassium 3.7 mmol/L (3.5-5.1) 01/11/20 08:09 Chloride 103 mmol/L (98-107) 01/11/20 08:09 Carbon Dioxide 29 mmol/L (21-32) 01/11/20 08:09 Anion Gap 7 MMOL/L (8-16) L 01/11/20 08:09 BUN 25.4 mg/dL (7-18) H 01/11/20 08:09 Creatinine 1.6 mg/dL (0.55-1.3) H 01/11/20 08:09 Calcium 8.9 mg/dL (8.5-10.1) 01/11/20 08:09 Total Bilirubin 0.6 mg/dL (0.2-1) 01/11/20 08:09 AST 76 U/L (15-37) H 01/11/20 08:09 ALT 38 U/L (13-61) 01/11/20 08:09 Alkaline Phosphatase 81 U/L (45-117) 01/11/20 08:09 Total Protein 7.2 g/dl (6.4-8.2) 01/11/20 08:09 Albumin 3.5 g/dl (3.4-5.0) 01/11/20 08:09 Active Medications Albuterol Sulfate (Ventolin Hfa Inhaler -) 2 puff IH Q6H PRN PRN Reason: SHORT OF BREATH/WHEEZING Albuterol/Ipratropium (Duoneb -) 1 amp NEB Q6H PRN PRN Reason: SHORTNESS OF BREATH Ascorbic Acid (Vitamin C -) 250 mg PO DAILY [facility] Last Admin: 01/11/20 13:12 Dose: 250 mg Documented by: Budesonide/Formoterol Fumarate (Symbicort 80/4.5mcg -) 2 puff IH BID [facility] Last Admin: 01/11/20 12:38 Dose: 2 puff Documented by: Enoxaparin Sodium (Lovenox -) 40 mg SQ DAILY [facility] Last Admin: 01/11/20 12:30 Dose: 40 mg Documented by: Famotidine (Pepcid -) 20 mg PO DAILY [facility] Last Admin: 01/11/20 12:29 Dose: 20 mg Documented by: Hydrochlorothiazide (Hctz -) 12.5 mg PO DAILY [facility] Last Admin: 01/11/20 12:29 Dose: 12.5 mg Documented by: Azithromycin (Zithromax 500mg Ivpb (Pre-Docked)) 500 mg in 250 mls @ 250 mls/hr IVPB DAILY [facility] Last Admin: 01/11/20 12:49 Dose: 250 mls/hr Documented by: Ceftriaxone Sodium 1 gm/ (Dextrose) 50 mls @ 100 mls/hr IVPB DAILY [facility] Lisinopril (Prinivil) 20 mg PO HS [facility] Last Admin: 01/10/20 22:05 Dose: 20 mg Documented by: Methadone HCl 80 mg/ 80 mg PO ONCE ONE Stop: 01/12/20 06:01 Methadone HCl 80 mg/ Methadone (HCl 5 mg) 85 mg PO 0600 [facility] Nicotine (Nicoderm Patch -) 7 mg TD DAILY [facility] Last Admin: 01/11/20 12:32 Dose: 7 mg Documented by: Prednisone (Deltasone -) 40 mg PO DAILY [facility] Last Admin: 01/11/20 12:29 Dose: 40 mg Documented by: Zinc Sulfate (Orazinc -) 220 mg PO BID [facility] Last Admin: 01/11/20 12:30 Dose: 220 mg Documented by: ASSESSMENT AND PLAN: 74 Y M with a PMH of HTN, HLD, Tobacco use, Diet-controlled DM and Heroin use (snorts) who presents to the ER with fever and cough for 2 days and admitted for likely suspected Covid -19 # Productive cough, leukocytosis likely 2/2 Acute Bronchitis vs Acute COPD ruled out SARS-CoV19 pt presented with fever, weakness, productive cough with yellow sputum no sick contacts, active smoker, snorts heroin. WBC trending up, on IV ceftriaxone and Azithromycin prolonged QT will avoid levaquin use 100% on RA Pulm consult appreciated Substance abuse on methadone HTN lung nodule (need CT in 6months as pt is high risk) spoke with pt about substance abuse, smoking,risk of behavior advised abstinence. DVT proph
[2020-01-11] MEDS ORDERED: NITROGLYCERIN 2% OINTMENT - 1GM PACKET TD PRN (17:34)
[2020-01-11] MEDS: CEFTRIAXONE 1 GM in DEXTROSE 5%-WATER - 50 ML IVPB SCH (20:19)
[2020-01-11] MEDS: LISINOPRIL 5 MG TABLET (FP) PO SCH (21:21)
[2020-01-11] MEDS ORDERED: MELATONIN 5 MG TABLETS PO ONE (22:27)
[2020-01-12] MEDS ORDERED: METHADONE HCL 10 MG TABLET PO ONE (06:00)
[2020-01-12 08:54] LABS: BASO % 0.3 % (0-2.0); EOS % 0.4 % (0-4.5); HEMATOCRIT 40.9 % (35.4-49); HEMOGLOBIN 13.8 GM/dL (11.7-16.9); LYMPH % 9.5 % (8-40); MCH 28.5 pg (25.7-33.7); MCHC 33.7 g/dl (32.0-35.9); MEAN CELL VOLUME 84.7 fl (80-96); MONO % 6.1 % (3.8-10.2); NEUT % 83.7 % (42.8-82.8); PLATELET COUNT 329 K/MM3 (134-434); RBC 4.83 M/mm3 (4.00-5.60); RDW 14.2 % (11.9-15.9); WHITE BLOOD COUNT 18.4 K/mm3 (4.0-10.0)
[2020-01-12 09:27] LABS: ALBUMIN 3.6 g/dl (3.4-5.0); BLOOD UREA NITROGEN 22.9 mg/dL (7-18); CREATININE 1.5 mg/dL (0.55-1.3); MAGNESIUM 2.1 mg/dL (1.8-2.4); PHOSPHOROUS 3.7 mg/dL (2.5-4.9); POTASSIUM 3.7 mmol/L (3.5-5.1); TOT PROT 7.5 g/dl (6.4-8.2)
[2020-01-12 09:37] LABS: BILIRUBIN,TOTAL 0.7 mg/dL (0.2-1)
[2020-01-12] MEDS ORDERED: DEXTROSE 5%-WATER - 50 ML IVPB ONE (11:13)
[2020-01-12] MEDS ORDERED: cefTRIAXone SODIUM 1 GM VIAL ONE (11:13)
[2020-01-12] MEDS ORDERED: PT OWN MED DRAWER 7, Y5N ONE (11:13)
[2020-01-12] MEDS: CEFTRIAXONE 1 GM in DEXTROSE 5%-WATER - 50 ML IVPB SCH (11:19)
[2020-01-12] MEDS: AZITHROMYCIN IVPB 500 MG/250 ML BAG IVPB SCH (11:20)
[2020-01-12] MEDS: ENOXAPARIN NA (PORCINE) 40 MG/0.4 ML DISP.SYRIN SQ SCH (11:43)
[2020-01-12] MEDS: ZINC SULFATE 220 MG CAPSULE (FP) PO SCH ×2 (11:45→21:35)
[2020-01-12] MEDS: NICOTINE 7 MG/24 HOURS TOPICAL PATCH TD SCH (11:45)
[2020-01-12] MEDS: ASCORBIC ACID 250 MG TABLET (FP) PO SCH (11:45)
[2020-01-12] MEDS: HYDROCHLOROTHIAZIDE 12.5 MG CAPSULE (FP) PO SCH (11:45)
[2020-01-12] MEDS: BUDESONIDE/FORMETEROL FUMARATE 80/4.5 mcg INHALER IH SCH ×2 (11:46→21:35)
[2020-01-12] MEDS: predniSONE 20 MG TABLET (UD) PO SCH (11:46)
[2020-01-12] MEDS: FAMOTIDINE 20 MG TABLET PO SCH (11:46)
[2020-01-12] MEDS: amLODIPine BESYLATE 10 MG TABLET (FP) PO SCH (11:46)
--- NOTE | 2020-01-12 12:56 | PN ---
Progress Note (short form) - Note Progress Note: Breathing feels a little better. Generalized malaise and fatigue. No acute events overnight. Intake & Output 01/09/20 01/10/20 01/11/20 01/12/20 23:59 23:59 23:59 23:59 Intake Total 480 560 200 Balance 480 560 200 Weight 170 lb 170 lb Last Vital Signs Temp Pulse Resp BP Pulse Ox 99.2 F 84 22 H 160/84 95 01/12/20 06:52 01/12/20 06:52 01/12/20 06:52 01/12/20 06:52 01/12/20 02:00 Active Medications Albuterol Sulfate (Ventolin Hfa Inhaler -) 2 puff IH Q6H PRN PRN Reason: SHORT OF BREATH/WHEEZING Albuterol/Ipratropium (Duoneb -) 1 amp NEB Q6H PRN PRN Reason: SHORTNESS OF BREATH Amlodipine Besylate (Norvasc -) 10 mg PO DAILY [facility] Last Admin: 01/12/20 11:46 Dose: 10 mg Documented by: Ascorbic Acid (Vitamin C -) 250 mg PO DAILY [facility] Last Admin: 01/12/20 11:45 Dose: 250 mg Documented by: Budesonide/Formoterol Fumarate (Symbicort 80/4.5mcg -) 2 puff IH BID [facility] Last Admin: 01/12/20 11:46 Dose: 2 puff Documented by: Enoxaparin Sodium (Lovenox -) 40 mg SQ DAILY [facility] Last Admin: 01/12/20 11:43 Dose: 40 mg Documented by: Famotidine (Pepcid -) 20 mg PO DAILY [facility] Last Admin: 01/12/20 11:46 Dose: 20 mg Documented by: Hydrochlorothiazide (Hctz -) 12.5 mg PO DAILY [facility] Last Admin: 01/12/20 11:45 Dose: 12.5 mg Documented by: Azithromycin (Zithromax 500mg Ivpb (Pre-Docked)) 500 mg in 250 mls @ 250 mls/hr IVPB DAILY [facility] Last Admin: 01/12/20 11:20 Dose: 250 mls/hr Documented by: Ceftriaxone Sodium 1 gm/ (Dextrose) 50 mls @ 100 mls/hr IVPB DAILY [facility] Last Admin: 01/12/20 11:19 Dose: 100 mls/hr Documented by: Lisinopril (Prinivil) 20 mg PO HS [facility] Last Admin: 01/11/20 21:21 Dose: 20 mg Documented by: Methadone HCl 80 mg/ Methadone (HCl 5 mg) 85 mg PO 0600 [facility] Nicotine (Nicoderm Patch -) 7 mg TD DAILY [facility] Last Admin: 01/12/20 11:45 Dose: 7 mg Documented by: Nitroglycerin (Nitro-Bid 2% Paste -) 1 inch TD Q6HPO PRN PRN Reason: HYPERTENSION Last Admin: 01/11/20 21:22 Dose: 1 inch Documented by: Prednisone (Deltasone -) 40 mg PO DAILY [facility] Last Admin: 01/12/20 11:46 Dose: 40 mg Documented by: Zinc Sulfate (Orazinc -) 220 mg PO BID [facility] Last Admin: 01/12/20 11:45 Dose: 220 mg Documented by: Constitutional: Yes: Well Nourished, Calm Eyes: Yes: WNL HENT: Yes: WNL Neck: Yes: WNL Cardiovascular: Yes: Regular Rate and Rhythm, S1, S2 Respiratory: Yes: Diminished Gastrointestinal: Yes: Normal Bowel Sounds, Soft Extremities: Yes: WNL Edema: No Labs: Laboratory Results - last 24 hr 01/11/20 01/12/20 01/12/20 20:44 07:32 07:32 WBC RBC Hgb Hct MCV MCH MCHC RDW Plt Count MPV Absolute Neuts (auto) Neutrophils % Lymphocytes % Monocytes % Eosinophils % Basophils % Nucleated RBC % D-Dimer 639 H Sodium 139 Potassium 3.7 Chloride 103 Carbon Dioxide 30 Anion Gap 7 L BUN 22.9 H Creatinine 1.5 H Est GFR (CKD-EPI)AfAm 52.77 Est GFR (CKD-EPI)NonAf 45.53 Random Glucose 83 Calcium 9.0 Phosphorus 3.7 Magnesium 2.1 Ferritin 198.3 Total Bilirubin 0.7 AST 58 H ALT 46 Alkaline Phosphatase 92 LD Total 348 H C-Reactive Protein 7.3 H Total Protein 7.5 Albumin 3.6 Influenza A (Rapid) Negative Influenza B (Rapid) Negative 01/12/20 07:32 WBC 18.4 H RBC 4.83 Hgb 13.8 Hct 40.9 MCV 84.7 MCH 28.5 MCHC 33.7 RDW 14.2 Plt Count 329 D MPV 9.0 Absolute Neuts (auto) 15.4 H Neutrophils % 83.7 H Lymphocytes % 9.5 Monocytes % 6.1 Eosinophils % 0.4 Basophils % 0.3 Nucleated RBC % 0 D-Dimer Sodium Potassium Chloride Carbon Dioxide Anion Gap BUN Creatinine Est GFR (CKD-EPI)AfAm Est GFR (CKD-EPI)NonAf Random Glucose Calcium Phosphorus Magnesium Ferritin Total Bilirubin AST ALT Alkaline Phosphatase LD Total C-Reactive Protein Total Protein Albumin Influenza A (Rapid) Influenza B (Rapid) Problem List - Problems (1) Suspected COVID-19 virus infection Code(s): Z20.828 - CONTACT W AND EXPOSURE TO OTH VIRAL COMMUNICABLE DISEASES (2) High blood pressure Code(s): I10 - ESSENTIAL (PRIMARY) HYPERTENSION (3) Nicotine dependence Code(s): F17.200 - NICOTINE DEPENDENCE, UNSPECIFIED, UNCOMPLICATED (4) HLD (hyperlipidemia) Code(s): E78.5 - HYPERLIPIDEMIA, UNSPECIFIED Assessment/Plan IMP FEVER,DYSPNEA improing SUSPECTED COVID19 PCR NEGATIVE SCATTERED BILATERAL PATCHY GROUND GLASS INFILTRATES COPD DM HTN SUBSTANCE ABUSE MEDIASTINAL ADENOPATHY LIKELY REACTIVE PETER PLAN SUPPLEMENTAL O2 INHALED BRONCHODILATORS PREDNISONE ABX COVID PCR NEGATIVE MONITOR INFLAMMATORY MARKERS MONITOR LYTES,RENAL FUNCTION F/U CHEST CT OUTPATIENT REPEAT COVID[address] SUAREZ
[2020-01-12] MEDS ORDERED: ZOLPIDEM TARTRATE 5 MG TABLET PO PRN (14:26)
--- NOTE | 2020-01-12 14:47 | PN ---
Physical Exam: SUBJECTIVE: Patient seen and examined at bedside, reports that he has not been sleeping well OBJECTIVE: Vital Signs Period Temp Pulse Resp BP Sys/Joyce Pulse Ox Last 24 Hr 98.4 F-99.2 F 74-84 18-22 160-183/84-95 95-98 GENERAL: AAOx3, in no acute distress HEENT: NCAT, PERRLA, EOMI, sclera anicteric, conjunctiva clear, wearing a mask NECK: Normal ROM, supple, no lymphadenopathy, JVD, or masses LUNGS: Decreased breath sounds b/l in all lung robles, no wheeze/rhonchi/ rales. No distress, speaks in full sentences. No increased work of breathing. HEART: RRR, normal S1 S2, no M/R/G, peripheral pulses 2+ and equal b/l ABDOMEN: Soft, non-tender, + BS. No guarding or rebound. Midline abdominal hernia MSK: ROM WNL, NO CVA tenderness EXTREMITIES: Normal inspection. No peripheral edema. No clubbing or cyanosis. NEUROLOGICAL: CN II-XII intact. Normal speech, gait not observed, no focal sensorimotor deficits. PSYCH: Normal mood, normal affect. SKIN: Warm, Dry, normal turgor, no rashes or lesions noted Laboratory Results - last 24 hr 01/11/20 01/12/20 01/12/20 20:44 07:32 07:32 WBC RBC Hgb Hct MCV MCH MCHC RDW Plt Count MPV Absolute Neuts (auto) Neutrophils % Lymphocytes % Monocytes % Eosinophils % Basophils % Nucleated RBC % D-Dimer 639 H Sodium 139 Potassium 3.7 Chloride 103 Carbon Dioxide 30 Anion Gap 7 L BUN 22.9 H Creatinine 1.5 H Est GFR (CKD-EPI)AfAm 52.77 Est GFR (CKD-EPI)NonAf 45.53 Random Glucose 83 Calcium 9.0 Phosphorus 3.7 Magnesium 2.1 Ferritin 198.3 Total Bilirubin 0.7 AST 58 H ALT 46 Alkaline Phosphatase 92 LD Total 348 H C-Reactive Protein 7.3 H Total Protein 7.5 Albumin 3.6 Influenza A (Rapid) Negative Influenza B (Rapid) Negative 01/12/20 07:32 WBC 18.4 H RBC 4.83 Hgb 13.8 Hct 40.9 MCV 84.7 MCH 28.5 MCHC 33.7 RDW 14.2 Plt Count 329 D MPV 9.0 Absolute Neuts (auto) 15.4 H Neutrophils % 83.7 H Lymphocytes % 9.5 Monocytes % 6.1 Eosinophils % 0.4 Basophils % 0.3 Nucleated RBC % 0 D-Dimer Sodium Potassium Chloride Carbon Dioxide Anion Gap BUN Creatinine Est GFR (CKD-EPI)AfAm Est GFR (CKD-EPI)NonAf Random Glucose Calcium Phosphorus Magnesium Ferritin Total Bilirubin AST ALT Alkaline Phosphatase LD Total C-Reactive Protein Total Protein Albumin Influenza A (Rapid) Influenza B (Rapid) Active Medications Generic Name Dose Route Start Last Admin Trade Name Freq PRN Reason Stop Dose Admin Albuterol Sulfate 2 puff 01/10/20 00:59 Ventolin Hfa Inhaler - IH Q6H PRN SHORT OF BREATH/WHEEZING Albuterol/Ipratropium 1 amp 01/10/20 05:56 Duoneb - NEB Q6H PRN SHORTNESS OF BREATH Amlodipine Besylate 10 mg 01/12/20 10:00 01/12/20 11:46 Norvasc - PO 10 mg DAILY [facility] Administration Ascorbic Acid 250 mg 01/10/20 10:00 01/12/20 11:45 Vitamin C - PO 250 mg DAILY [facility] Administration Budesonide/Formoterol Fumarate 2 puff 01/10/20 22:00 01/12/20 11:46 Symbicort 80/4.5mcg - IH 2 puff BID [facility] Administration Enoxaparin Sodium 40 mg 01/10/20 10:00 01/12/20 11:43 Lovenox - SQ 40 mg DAILY [facility] Administration Famotidine 20 mg 01/10/20 10:00 01/12/20 11:46 Pepcid - PO 20 mg DAILY [facility] Administration Hydrochlorothiazide 12.5 mg 01/10/20 10:00 01/12/20 11:45 Hctz - PO 12.5 mg DAILY [facility] Administration Azithromycin 500 mg in 250 mls @ 250 mls/hr 01/11/20 10:00 01/12/20 11:20 Zithromax 500mg Ivpb (Pre-Docked) IVPB 250 mls/hr DAILY [facility] Administration Ceftriaxone Sodium 1 gm/ 50 mls @ 100 mls/hr 01/11/20 13:59 01/12/20 11:19 Dextrose IVPB 100 mls/hr DAILY [facility] Administration Lisinopril 20 mg 01/10/20 22:00 01/11/20 21:21 Prinivil PO 20 mg HS [facility] Administration Methadone HCl 80 mg/ Methadone 85 mg 01/12/20 06:00 HCl 5 mg PO 0600 [facility] Nicotine 7 mg 01/10/20 10:00 01/12/20 11:45 Nicoderm Patch - TD 7 mg DAILY [facility] Administration Nitroglycerin 1 inch 01/11/20 17:34 01/11/20 21:22 Nitro-Bid 2% Paste - TD 1 inch Q6HPO PRN Administration HYPERTENSION Prednisone 40 mg 01/10/20 10:00 01/12/20 11:46 Deltasone - PO 40 mg DAILY [facility] Administration Zinc Sulfate 220 mg 01/10/20 10:00 01/12/20 11:45 Orazinc - PO 220 mg BID [facility] Administration ASSESSMENT/PLAN: 74 Y M with a PMH of HTN, HLD, Tobacco use, Diet-controlled DM and Heroin use (snorts) who presents to the ER with fever and cough for 2 days and admitted for likely suspected Covid -19 #Sepsis - Likely 2/2 to pulmonary infection, Covid PCR is negative x 1, pending repeat - reports decreased cough, but increased myalgia, weakness and insomnia - CT noted b/l ground glass opacity - Inflammatory markers trending down: LD 348, CRP 7.3, D-dimer 639 - Blood culture: Staph coagulase neg - repeat culture, pending, ID is consulted - Legionella and Streph pneumo antigen neg - Continue with ceftriaxone and azithromycin, Prolonged QT, will avoid Levaquin use - tolerating room air at this time, supplemental O2 as needed. PRN Symbicort - Pulm consulted, Dr. Villar, recs appreciated #Substance abuse - Uses heroin-snorts - On methadone 87mg - Consulted Dr. Chaudhari, regarding methadone, recs appreciated Will input dose with incremental dosing to prior stable dose. 80mg today and 85mg tomorrow #Lung nodule - Chest CT: 0.4cm nodule along the right major fissure - No previous imaging - will need outpatient CT scan in 6 months as pt is high risk #Hx of HTN - Continue with HCTZ-lisinopril FEN - no standing fluids - Continue to monitor electrolytes - sodium/diabetic controlled diet DVT ppx - lovenox sq Dispo - will continue to monitor in MS, trending inflammatory markers and v/s Visit type - Emergency Visit Emergency Visit: Yes ED Registration Date: 01/10/20 Care time: The patient presented to the Emergency Department on the above date and was hospitalized for further evaluation of their emergent condition. - New Patient This patient is new to me today: No - Critical Care Critical Care patient: No - Discharge Referral Referred to [facility] Med P.C.: No - Medication Review Med list reviewed for High Risk Meds patients 65 and older: Yes ATTENDING PHYSICIAN STATEMENT I saw and evaluated the patient. I reviewed the resident's note and discussed the case with the resident. I agree with the resident's findings and plan as documented. SUBJECTIVE: OBJECTIVE: ASSESSMENT AND PLAN:
--- NOTE | 2020-01-12 15:00 | CON.ID ---
Consult Consult Specialty:: infectious diseases Referred by:: Reason for Consultation:: gm positive bacteremia,sob - Past Surgical History Past Surgical History: Yes: None - Alcohol/Substance Use Hx Alcohol Use: No - Smoking History Smoking history: Current every day smoker Have you smoked in the past 12 months: Yes Aproximately how many cigarettes per day: 20 Home Medications - Allergies Allergies/Adverse Reactions: Allergies Allergy/AdvReac Type Severity Reaction Status Date / Time No Known Allergies Allergy Verified 01/09/20 21:14 - Home Medications Home Medications: Ambulatory Orders Ergocalciferol [Drisdol -] 50,000 unit PO WEEKLY 01/11/14 Fluocinonide 0.05% Gel [Lidex 0.05% Gel -] 1 applic TP DAILY 01/11/14 Lisinopril/Hydrochlorothiazide [Lisinopril-Hctz 20-25 mg Tab] 1 each PO DAILY 01/11/14 Methadone HCl 80 mg PO DAILY 01/11/14 Quetiapine Fumarate [Seroquel -] 100 mg PO HS 01/11/14 Zolpidem Tartrate [Ambien] 10 mg PO HS 08/01/14 Nicotine Patch [Nicoderm Patch -] 1 patch TD DAILY #30 patch 05/06/16 Acetaminophen 325 mg PO QID 06/20/16 Baclofen [Lioresal -] 10 mg PO TID 06/20/16 Gabapentin [Neurontin -] 400 mg PO Q8H 06/20/16 Quetiapine Fumarate [Seroquel -] 50 mg PO HS #30 tablet 06/16/18 Amlodipine Besylate [Norvasc -] 10 mg PO DAILY 01/10/20 Physical Exam Vital Signs: Vital Signs Temperature 98.6 F 01/12/20 14:43 Pulse Rate 77 01/12/20 14:43 Respiratory Rate 20 01/12/20 14:43 Blood Pressure 151/84 01/12/20 14:43 O2 Sat by Pulse Oximetry (%) 97 01/12/20 14:43 Labs: CBC, BMP 01/12/20 07:32 01/12/20 07:32
--- NOTE | 2020-01-12 15:27 | PN ---
Teaching Attending Note Name of Resident: Karen Preciado ATTENDING PHYSICIAN STATEMENT I saw and evaluated the patient. I reviewed the resident's note and discussed the case with the resident. I agree with the resident's findings and plan as documented. SUBJECTIVE: pt seen and examined OBJECTIVE: Last Vital Signs Temp Pulse Resp BP Pulse Ox 98.6 F 77 20 151/84 97 01/12/20 14:43 01/12/20 14:43 01/12/20 14:43 01/12/20 14:43 01/12/20 14:43 GENERAL: Awake, alert, and fully oriented, in no acute distress. LUNGS: Breath sounds equal, clear to auscultation bilaterally. No wheezes, and no crackles. No accessory muscle use. HEART: Regular rate and rhythm, normal S1 and S2 ABDOMEN: Soft, nontender, not distended MUSCULOSKELETAL: Normal range of motion at all joints. No bony deformities or tenderness. No CVA tenderness. LOWER EXTREMITIES: 2+ pulses, warm, well-perfused. No calf tenderness. No peripheral edema. NEUROLOGICAL: Cranial nerves II-XII intact. Normal speech. CBCD WBC 18.4 K/mm3 (4.0-10.0) H 01/12/20 07:32 RBC 4.83 M/mm3 (4.00-5.60) 01/12/20 07:32 Hgb 13.8 GM/dL (11.7-16.9) 01/12/20 07:32 Hct 40.9 % (35.4-49) 01/12/20 07:32 MCV 84.7 fl (80-96) 01/12/20 07:32 MCHC 33.7 g/dl (32.0-35.9) 01/12/20 07:32 RDW 14.2 % (11.9-15.9) 01/12/20 07:32 Plt Count 329 K/MM3 (134-434) D 01/12/20 07:32 MPV 9.0 fl (7.5-11.1) 01/12/20 07:32 CMP Sodium 139 mmol/L (136-145) 01/12/20 07:32 Potassium 3.7 mmol/L (3.5-5.1) 01/12/20 07:32 Chloride 103 mmol/L (98-107) 01/12/20 07:32 Carbon Dioxide 30 mmol/L (21-32) 01/12/20 07:32 Anion Gap 7 MMOL/L (8-16) L 01/12/20 07:32 BUN 22.9 mg/dL (7-18) H 01/12/20 07:32 Creatinine 1.5 mg/dL (0.55-1.3) H 01/12/20 07:32 Random Glucose 83 mg/dL (74-106) 01/12/20 07:32 Calcium 9.0 mg/dL (8.5-10.1) 01/12/20 07:32 Total Bilirubin 0.7 mg/dL (0.2-1) 01/12/20 07:32 AST 58 U/L (15-37) H 01/12/20 07:32 ALT 46 U/L (13-61) 01/12/20 07:32 Alkaline Phosphatase 92 U/L (45-117) 01/12/20 07:32 Total Protein 7.5 g/dl (6.4-8.2) 01/12/20 07:32 Albumin 3.6 g/dl (3.4-5.0) 01/12/20 07:32 CARDIAC ENZYMES Troponin I < 0.02 ng/ml (0.00-0.05) 01/09/20 21:11 Active Medications Albuterol Sulfate (Ventolin Hfa Inhaler -) 2 puff IH Q6H PRN PRN Reason: SHORT OF BREATH/WHEEZING Albuterol/Ipratropium (Duoneb -) 1 amp NEB Q6H PRN PRN Reason: SHORTNESS OF BREATH Amlodipine Besylate (Norvasc -) 10 mg PO DAILY [facility] Last Admin: 01/12/20 11:46 Dose: 10 mg Documented by: Ascorbic Acid (Vitamin C -) 250 mg PO DAILY [facility] Last Admin: 01/12/20 11:45 Dose: 250 mg Documented by: Budesonide/Formoterol Fumarate (Symbicort 80/4.5mcg -) 2 puff IH BID [facility] Last Admin: 01/12/20 11:46 Dose: 2 puff Documented by: Enoxaparin Sodium (Lovenox -) 40 mg SQ DAILY [facility] Last Admin: 01/12/20 11:43 Dose: 40 mg Documented by: Famotidine (Pepcid -) 20 mg PO DAILY [facility] Last Admin: 01/12/20 11:46 Dose: 20 mg Documented by: Hydrochlorothiazide (Hctz -) 12.5 mg PO DAILY [facility] Last Admin: 01/12/20 11:45 Dose: 12.5 mg Documented by: Azithromycin (Zithromax 500mg Ivpb (Pre-Docked)) 500 mg in 250 mls @ 250 mls/hr IVPB DAILY [facility] Last Admin: 01/12/20 11:20 Dose: 250 mls/hr Documented by: Ceftriaxone Sodium 1 gm/ (Dextrose) 50 mls @ 100 mls/hr IVPB DAILY [facility] Last Admin: 01/12/20 11:19 Dose: 100 mls/hr Documented by: Lisinopril (Prinivil) 20 mg PO HS [facility] Last Admin: 01/11/20 21:21 Dose: 20 mg Documented by: Methadone HCl 80 mg/ Methadone (HCl 5 mg) 85 mg PO 0600 [facility] Nicotine (Nicoderm Patch -) 7 mg TD DAILY [facility] Last Admin: 01/12/20 11:45 Dose: 7 mg Documented by: Nitroglycerin (Nitro-Bid 2% Paste -) 1 inch TD Q6HPO PRN PRN Reason: HYPERTENSION Last Admin: 01/11/20 21:22 Dose: 1 inch Documented by: Prednisone (Deltasone -) 20 mg PO DAILY [facility] Zinc Sulfate (Orazinc -) 220 mg PO BID [facility] Last Admin: 01/12/20 11:45 Dose: 220 mg Documented by: Zolpidem Tartrate (Ambien -) 5 mg PO HS PRN PRN Reason: INSOMNIA ASSESSMENT AND PLAN: 74 Y M with a PMH of HTN, HLD, Tobacco use, Diet-controlled DM and Heroin use (snorts) who presents to the ER with fever and cough for 2 days and admitted for likely suspected Covid -19 # sepsis source remain unknown (pulmonary cause is still likely) cough decreased, but still feeling weak, complaining of inability to sleep ruled out SARS-CoV19, repeat test per pulmonary d-dimer, crp trending down WBC slightly down, on IV ceftriaxone and Azithromycin blood culture positive for staph repeat culture ordered, ID consult prolonged QT will avoid levaquin use 100% on RA Pulm consult appreciated ID consult appreciated case discussed with ID Substance abuse on methadone HTN COPD lung nodule (need CT in 6months as pt is high risk) spoke with pt about substance abuse, smoking,risk of behavior advised abstinence. DVT proph
[2020-01-12] MEDS: LISINOPRIL 5 MG TABLET (FP) PO SCH (21:34)
[2020-01-13] MEDS ORDERED: METHADONE 80 MG, METHADONE 5 MG PO SCH (06:00)
[2020-01-13] MEDS ORDERED: METHADONE HCL 10 MG TABLET PO SCH (06:00)
[2020-01-13 08:54] LABS: BASO % 0.4 % (0-2.0); EOS % 0.4 % (0-4.5); HEMATOCRIT 41.3 % (35.4-49); HEMOGLOBIN 13.9 GM/dL (11.7-16.9); LYMPH % 17.8 % (8-40); MCH 29.1 pg (25.7-33.7); MCHC 33.6 g/dl (32.0-35.9); MEAN CELL VOLUME 86.5 fl (80-96); MEAN PLT VOLUME 8.9 fl (7.5-11.1); MONO % 7.8 % (3.8-10.2); NEUT % 73.6 % (42.8-82.8); PLATELET COUNT 275 K/MM3 (134-434); RBC 4.77 M/mm3 (4.00-5.60); WHITE BLOOD COUNT 13.1 K/mm3 (4.0-10.0)
[2020-01-13 09:14] LABS: ALBUMIN 3.4 g/dl (3.4-5.0); BILIRUBIN,TOTAL 0.5 mg/dL (0.2-1); BLOOD UREA NITROGEN 25.5 mg/dL (7-18); CALCIUM 8.8 mg/dL (8.5-10.1); CREATININE 1.6 mg/dL (0.55-1.3); MAGNESIUM 1.9 mg/dL (1.8-2.4); PHOSPHOROUS 3.6 mg/dL (2.5-4.9); POTASSIUM 3.7 mmol/L (3.5-5.1); TOT PROT 7.5 g/dl (6.4-8.2)
[2020-01-13] MEDS ORDERED: METHADONE HCL 40 MG DISPERSABLE TABLET ONE (09:51)
[2020-01-13] MEDS ORDERED: METHADONE HCL 5 MG TABLET ONE (09:51)
[2020-01-13] MEDS ORDERED: DEXTROSE 5%-WATER - 50 ML IVPB ONE (09:53)
[2020-01-13] MEDS ORDERED: PT OWN MED DRAWER 7, Y5N ONE (09:53)
[2020-01-13] MEDS ORDERED: cefTRIAXone SODIUM 1 GM VIAL ONE (09:53)
[2020-01-13] MEDS: NICOTINE 7 MG/24 HOURS TOPICAL PATCH TD SCH (10:17)
[2020-01-13] MEDS: amLODIPine BESYLATE 10 MG TABLET (FP) PO SCH (10:18)
[2020-01-13] MEDS: HYDROCHLOROTHIAZIDE 12.5 MG CAPSULE (FP) PO SCH (10:18)
[2020-01-13] MEDS: FAMOTIDINE 20 MG TABLET PO SCH (10:18)
[2020-01-13] MEDS: predniSONE 20 MG TABLET (UD) PO SCH (10:18)
[2020-01-13] MEDS: METHADONE 80 MG, METHADONE 5 MG PO SCH (10:18)
[2020-01-13] MEDS: CEFTRIAXONE 1 GM in DEXTROSE 5%-WATER - 50 ML IVPB SCH (10:19)
[2020-01-13] MEDS: ZINC SULFATE 220 MG CAPSULE (FP) PO SCH ×2 (10:19→21:41)
[2020-01-13] MEDS: AZITHROMYCIN IVPB 500 MG/250 ML BAG IVPB SCH (10:19)
[2020-01-13] MEDS: ASCORBIC ACID 250 MG TABLET (FP) PO SCH (10:19)
[2020-01-13] MEDS: ENOXAPARIN NA (PORCINE) 40 MG/0.4 ML DISP.SYRIN SQ SCH (10:19)
[2020-01-13] MEDS: BUDESONIDE/FORMETEROL FUMARATE 80/4.5 mcg INHALER IH SCH ×2 (10:19→22:45)
--- NOTE | 2020-01-13 11:32 | PN ---
Progress Note, Physician History of Present Illness: does not feel well wbc has trended down feels he cannot eat anything - Current Medication List Current Medications: Active Medications Albuterol Sulfate (Ventolin Hfa Inhaler -) 2 puff IH Q6H PRN PRN Reason: SHORT OF BREATH/WHEEZING Albuterol/Ipratropium (Duoneb -) 1 amp NEB Q6H PRN PRN Reason: SHORTNESS OF BREATH Amlodipine Besylate (Norvasc -) 10 mg PO DAILY [facility] Last Admin: 01/13/20 10:18 Dose: 10 mg Documented by: Ascorbic Acid (Vitamin C -) 250 mg PO DAILY [facility] Last Admin: 01/13/20 10:19 Dose: 250 mg Documented by: Budesonide/Formoterol Fumarate (Symbicort 80/4.5mcg -) 2 puff IH BID [facility] Last Admin: 01/13/20 10:19 Dose: 2 puff Documented by: Enoxaparin Sodium (Lovenox -) 40 mg SQ DAILY [facility] Last Admin: 01/13/20 10:19 Dose: 40 mg Documented by: Famotidine (Pepcid -) 20 mg PO DAILY [facility] Last Admin: 01/13/20 10:18 Dose: 20 mg Documented by: Hydrochlorothiazide (Hctz -) 12.5 mg PO DAILY [facility] Last Admin: 01/13/20 10:18 Dose: 12.5 mg Documented by: Azithromycin (Zithromax 500mg Ivpb (Pre-Docked)) 500 mg in 250 mls @ 250 mls/hr IVPB DAILY [facility] Last Admin: 01/13/20 10:19 Dose: 250 mls/hr Documented by: Ceftriaxone Sodium 1 gm/ (Dextrose) 50 mls @ 100 mls/hr IVPB DAILY [facility] Last Admin: 01/13/20 10:19 Dose: 100 mls/hr Documented by: Lisinopril (Prinivil) 20 mg PO HS [facility] Last Admin: 01/12/20 21:34 Dose: 20 mg Documented by: Methadone HCl 80 mg/ Methadone (HCl 5 mg) 85 mg PO 0600 [facility] Last Admin: 01/13/20 10:18 Dose: 85 mg Documented by: Nicotine (Nicoderm Patch -) 7 mg TD DAILY [facility] Last Admin: 01/13/20 10:17 Dose: 7 mg Documented by: Nitroglycerin (Nitro-Bid 2% Paste -) 1 inch TD Q6HPO PRN PRN Reason: HYPERTENSION Last Admin: 01/11/20 21:22 Dose: 1 inch Documented by: Prednisone (Deltasone -) 20 mg PO DAILY [facility] Last Admin: 01/13/20 10:18 Dose: 20 mg Documented by: Zinc Sulfate (Orazinc -) 220 mg PO BID [facility] Last Admin: 01/13/20 10:19 Dose: 220 mg Documented by: Zolpidem Tartrate (Ambien -) 5 mg PO HS PRN PRN Reason: INSOMNIA - Objective Vital Signs: Vital Signs Temperature 98.3 F 01/12/20 22:00 Pulse Rate 76 01/12/20 22:00 Respiratory Rate 20 01/12/20 22:00 Blood Pressure 150/82 01/12/20 22:00 O2 Sat by Pulse Oximetry (%) 97 01/12/20 22:00 Constitutional: Yes: Calm, Mild Distress Cardiovascular: Yes: S1, S2 Respiratory: Yes: Regular, CTA Bilaterally Gastrointestinal: Yes: Distention, Hypoactive Bowel Sounds, Other Musculoskeletal: Yes: WNL Extremities: Yes: WNL Neurological: Yes: Alert, Oriented Psychiatric: Yes: Alert, Oriented Labs: CBC, BMP 01/13/20 07:41 01/13/20 07:41 INR, PTT INR 1.03 (0.83-1.09) 01/09/20 21:45 Assessment/Plan 74 Y M with a PMH of HTN, HLD, Tobacco use, Diet-controlled DM and Heroin use (snorts) who presents to the ER with fever and cough for 2 days and admitted for likely suspected Covid -19 leukocytosis gm positive bacteremia substance abuse htn lung nodule plan continue current mgmt monitor wbc await for repeat blood cx rest as per the team
--- NOTE | 2020-01-13 12:30 | PN ---
Physical Exam: SUBJECTIVE: Patient seen and examined at bedside, reports that he was not able to sleep again last night, cannot eat food. OBJECTIVE: Vital Signs Period Temp Pulse Resp BP Sys/Joyce Pulse Ox Last 24 Hr 98.3 F-98.6 F 76-77 20-20 150-151/82-84 97-97 GENERAL: AAOx3, in no acute distress HEENT: NCAT, PERRLA, EOMI, sclera anicteric, conjunctiva clear, wearing a mask NECK: Normal ROM, supple, no lymphadenopathy, JVD, or masses LUNGS: Decreased breath sounds b/l in all lung robles, no wheeze/rhonchi/ rales. No distress, speaks in full sentences. No increased work of breathing. HEART: RRR, normal S1 S2, no M/R/G, peripheral pulses 2+ and equal b/l ABDOMEN: Soft, non-tender, + BS. No guarding or rebound. Midline abdominal hernia MSK: ROM WNL, NO CVA tenderness EXTREMITIES: Normal inspection. No peripheral edema. No clubbing or cyanosis. NEUROLOGICAL: CN II-XII intact. Normal speech, gait not observed, no focal sensorimotor deficits. PSYCH: Normal mood, normal affect. SKIN: Warm, Dry, normal turgor, no rashes or lesions noted Laboratory Results - last 24 hr 01/11/20 01/13/20 01/13/20 20:34 07:41 07:41 WBC 13.1 H RBC 4.77 Hgb 13.9 Hct 41.3 MCV 86.5 MCH 29.1 MCHC 33.6 RDW 14.0 Plt Count 275 MPV 8.9 Absolute Neuts (auto) 9.6 H Neutrophils % 73.6 Lymphocytes % 17.8 D Monocytes % 7.8 Eosinophils % 0.4 Basophils % 0.4 Nucleated RBC % 0 D-Dimer Sodium 138 Potassium 3.7 Chloride 102 Carbon Dioxide 28 Anion Gap 8 BUN 25.5 H Creatinine 1.6 H Est GFR (CKD-EPI)AfAm 48.81 Est GFR (CKD-EPI)NonAf 42.11 Random Glucose 78 Calcium 8.8 Phosphorus 3.6 Magnesium 1.9 Ferritin 172.3 Total Bilirubin 0.5 AST 47 H ALT 48 Alkaline Phosphatase 81 LD Total 290 H C-Reactive Protein 4.3 H Total Protein 7.5 Albumin 3.4 COVID-19 ([facility]USAN) Not detected 01/13/20 09:10 WBC RBC Hgb Hct MCV MCH MCHC RDW Plt Count MPV Absolute Neuts (auto) Neutrophils % Lymphocytes % Monocytes % Eosinophils % Basophils % Nucleated RBC % D-Dimer 513 H Sodium Potassium Chloride Carbon Dioxide Anion Gap BUN Creatinine Est GFR (CKD-EPI)AfAm Est GFR (CKD-EPI)NonAf Random Glucose Calcium Phosphorus Magnesium Ferritin Total Bilirubin AST ALT Alkaline Phosphatase LD Total C-Reactive Protein Total Protein Albumin COVID-19 ([facility]USAN) Active Medications Generic Name Dose Route Start Last Admin Trade Name Freq PRN Reason Stop Dose Admin Albuterol Sulfate 2 puff 01/10/20 00:59 Ventolin Hfa Inhaler - IH Q6H PRN SHORT OF BREATH/WHEEZING Albuterol/Ipratropium 1 amp 01/10/20 05:56 Duoneb - NEB Q6H PRN SHORTNESS OF BREATH Amlodipine Besylate 10 mg 01/12/20 10:00 01/13/20 10:18 Norvasc - PO 10 mg DAILY [facility] Administration Ascorbic Acid 250 mg 01/10/20 10:00 01/13/20 10:19 Vitamin C - PO 250 mg DAILY [facility] Administration Budesonide/Formoterol Fumarate 2 puff 01/10/20 22:00 01/13/20 10:19 Symbicort 80/4.5mcg - IH 2 puff BID [facility] Administration Enoxaparin Sodium 40 mg 01/10/20 10:00 01/13/20 10:19 Lovenox - SQ 40 mg DAILY [facility] Administration Famotidine 20 mg 01/10/20 10:00 01/13/20 10:18 Pepcid - PO 20 mg DAILY [facility] Administration Hydrochlorothiazide 12.5 mg 01/10/20 10:00 01/13/20 10:18 Hctz - PO 12.5 mg DAILY [facility] Administration Azithromycin 500 mg in 250 mls @ 250 mls/hr 01/11/20 10:00 01/13/20 10:19 Zithromax 500mg Ivpb (Pre-Docked) IVPB 250 mls/hr DAILY [facility] Administration Ceftriaxone Sodium 1 gm/ 50 mls @ 100 mls/hr 01/11/20 13:59 01/13/20 10:19 Dextrose IVPB 100 mls/hr DAILY [facility] Administration Lisinopril 20 mg 01/10/20 22:00 01/12/20 21:34 Prinivil PO 20 mg HS [facility] Administration Methadone HCl 80 mg/ Methadone 85 mg 01/13/20 08:45 01/13/20 10:18 HCl 5 mg PO 85 mg 0600 [facility] Administration Nicotine 7 mg 01/10/20 10:00 01/13/20 10:17 Nicoderm Patch - TD 7 mg DAILY [facility] Administration Nitroglycerin 1 inch 01/11/20 17:34 01/11/20 21:22 Nitro-Bid 2% Paste - TD 1 inch Q6HPO PRN Administration HYPERTENSION Prednisone 20 mg 01/12/20 14:27 01/13/20 10:18 Deltasone - PO 20 mg DAILY [facility] Administration Zinc Sulfate 220 mg 01/10/20 10:00 01/13/20 10:19 Orazinc - PO 220 mg BID [facility] Administration Zolpidem Tartrate 5 mg 01/13/20 22:00 Ambien - PO HS PRN INSOMNIA ASSESSMENT/PLAN: 74 Y M with a PMH of HTN, HLD, Tobacco use, Diet-controlled DM and Heroin use (snorts) who presents to the ER with fever and cough for 2 days and admitted for likely suspected Covid -19 #Sepsis - Likely 2/2 to pulmonary infection, Covid PCR is negative x 2 - reports decreased cough, but increased myalgia, weakness and insomnia - CT noted b/l ground glass opacity - Inflammatory markers trending down: LD 348, CRP 7.3, D-dimer 639 - Blood culture: Staph coagulase neg - repeat culture, pending, ID is consulted, recs appreciated - Legionella and Streph pneumo antigen neg - Continue with ceftriaxone and azithromycin, Prolonged QT, will avoid Levaquin use - tolerating room air at this time, supplemental O2 as needed. PRN Symbicort - Pulm consulted, Dr. Villar, recs appreciated #Substance abuse - Uses heroin-snorts - On methadone 87mg - Consulted Dr. Chaudhari, regarding methadone, recs appreciated Will input dose with incremental dosing to prior stable dose. 80mg today and 85mg tomorrow #Lung nodule - Chest CT: 0.4cm nodule along the right major fissure - No previous imaging - will need outpatient CT scan in 6 months as pt is high risk #Hx of HTN - Continue with HCTZ-lisinopril FEN - no standing fluids - Continue to monitor electrolytes - sodium/diabetic controlled diet DVT ppx - lovenox sq Dispo - will continue to monitor in [place], trending inflammatory markers and v/s, Zolpidem, melatonin PRN for sleep Visit type - Emergency Visit Emergency Visit: Yes ED Registration Date: 01/10/20 Care time: The patient presented to the Emergency Department on the above date and was hospitalized for further evaluation of their emergent condition. - New Patient This patient is new to me today: No - Critical Care Critical Care patient: No - Discharge Referral [facility] to [facility] No - Medication Review Med list reviewed for High Risk Meds patients 65 and older: Yes ATTENDING PHYSICIAN STATEMENT I saw and evaluated the patient. I reviewed the resident's note and discussed the case with the resident. I agree with the resident's findings and plan as documented. SUBJECTIVE: OBJECTIVE: ASSESSMENT AND PLAN:
--- NOTE | 2020-01-13 12:47 | PN ---
Teaching Attending Note Name of Resident: Karen Preciado ATTENDING PHYSICIAN STATEMENT I saw and evaluated the patient. I reviewed the resident's note and discussed the case with the resident. I agree with the resident's findings and plan as documented. SUBJECTIVE: OBJECTIVE: GENERAL: Awake, alert, and fully oriented, in no acute distress. LUNGS: Breath sounds equal, clear to auscultation bilaterally. No wheezes, and no crackles. No accessory muscle use. HEART: Regular rate and rhythm, normal S1 and S2 ABDOMEN: Soft, nontender, not distended MUSCULOSKELETAL: Normal range of motion at all joints. No bony deformities or tenderness. No CVA tenderness. LOWER EXTREMITIES: 2+ pulses, warm, well-perfused. No calf tenderness. No peripheral edema. NEUROLOGICAL: Cranial nerves II-XII intact. Normal speech. ASSESSMENT AND PLAN: 74 Y M with a PMH of HTN, HLD, Tobacco use, Diet-controlled DM and Heroin use (snorts) who presents to the ER with fever and cough for 2 days and admitted for likely suspected Covid -19 # sepsis - resolving source remain unknown (pulmonary cause is still likely) cough decreased, but still feeling weak, complaining of inability to sleep ruled out SARS-CoV19 WBC down, on IV ceftriaxone and Azithromycin blood culture positive for staph repeat culture ordered, ID consult case discussed with ID prolonged QT will avoid levaquin use 100% on RA Pulm consult appreciated ID consult appreciated case discussed with consults Substance abuse on methadone HTN COPD lung nodule (need CT in 6months as pt is high risk) feeling sad, unable to sleep (worried about risk of Cancer. withdrawal?) discussed his condition in length provided strategies to improve sleep and mental health. daughter concerned about early dementia, spoke with her in length about MMSE and timing of test. Will follow up with outpatient DVT proph
[2020-01-13] MEDS: LISINOPRIL 5 MG TABLET (FP) PO SCH (21:41)
[2020-01-13] MEDS ORDERED: ZOLPIDEM TARTRATE 5 MG TABLET PO PRN (22:00)
[2020-01-13] MEDS: ZOLPIDEM TARTRATE 5 MG TABLET PO PRN (22:05)
[2020-01-14] MEDS ORDERED: METHADONE HCL 5 MG TABLET ONE (05:35)
[2020-01-14] MEDS ORDERED: METHADONE HCL 40 MG DISPERSABLE TABLET ONE (05:35)
[2020-01-14] MEDS: METHADONE 80 MG, METHADONE 5 MG PO SCH (05:47)
[2020-01-14 08:40] LABS: BASO % 0.6 % (0-2.0); EOS % 1.1 % (0-4.5); HEMATOCRIT 39.5 % (35.4-49); HEMOGLOBIN 13.9 GM/dL (11.7-16.9); LYMPH % 21.2 % (8-40); MCH 29.7 pg (25.7-33.7); MEAN CELL VOLUME 84.9 fl (80-96); MEAN PLT VOLUME 8.6 fl (7.5-11.1); MONO % 10.1 % (3.8-10.2); PLATELET COUNT 270 K/MM3 (134-434); RBC 4.66 M/mm3 (4.00-5.60); WHITE BLOOD COUNT 10.8 K/mm3 (4.0-10.0)
[2020-01-14 08:45] LABS: ALBUMIN 3.2 g/dl (3.4-5.0); BILIRUBIN,TOTAL 0.3 mg/dL (0.2-1); BLOOD UREA NITROGEN 26.1 mg/dL (7-18); CALCIUM 8.7 mg/dL (8.5-10.1); CREATININE 1.5 mg/dL (0.55-1.3); MAGNESIUM 2.2 mg/dL (1.8-2.4); PHOSPHOROUS 3.6 mg/dL (2.5-4.9); POTASSIUM 3.8 mmol/L (3.5-5.1); TOT PROT 6.8 g/dl (6.4-8.2)
--- NOTE | 2020-01-14 09:10 | PN ---
Physical Exam: SUBJECTIVE: Patient seen and examined OBJECTIVE: Vital Signs Period Temp Pulse Resp BP Sys/Joyce Pulse Ox Last 24 Hr 98 F-98.5 F 69-72 16-18 138-166/64-95 96-98 GENERAL: Awake, alert, and fully oriented, in no acute distress. LUNGS: Breath sounds equal, clear to auscultation bilaterally. No wheezes, and no crackles. No accessory muscle use. HEART: Regular rate and rhythm, normal S1 and S2 ABDOMEN: Soft, nontender, not distended MUSCULOSKELETAL: Normal range of motion at all joints. No bony deformities or tenderness. No CVA tenderness. LOWER EXTREMITIES: 2+ pulses, warm, well-perfused. No calf tenderness. No peripheral edema. NEUROLOGICAL: Cranial nerves II-XII intact. Normal speech. Laboratory Results - last 24 hr 01/12/20 01/13/20 01/13/20 14:18 07:41 09:10 WBC RBC Hgb Hct MCV MCH MCHC RDW Plt Count MPV Absolute Neuts (auto) Neutrophils % Lymphocytes % Monocytes % Eosinophils % Basophils % Nucleated RBC % D-Dimer 513 H Sodium 138 Potassium 3.7 Chloride 102 Carbon Dioxide 28 Anion Gap 8 BUN 25.5 H Creatinine 1.6 H Est GFR (CKD-EPI)AfAm 48.81 Est GFR (CKD-EPI)NonAf 42.11 Random Glucose 78 Calcium 8.8 Phosphorus 3.6 Magnesium 1.9 Ferritin 172.3 Total Bilirubin 0.5 AST 47 H ALT 48 Alkaline Phosphatase 81 LD Total 290 H C-Reactive Protein 4.3 H Total Protein 7.5 Albumin 3.4 SARS-CoV-2 Ab Interp Reactive 01/14/20 01/14/20 06:55 06:55 WBC 10.8 H RBC 4.66 Hgb 13.9 Hct 39.5 MCV 84.9 MCH 29.7 MCHC 35.0 RDW 14.0 Plt Count 270 MPV 8.6 Absolute Neuts (auto) 7.3 Neutrophils % 67.0 Lymphocytes % 21.2 Monocytes % 10.1 Eosinophils % 1.1 D Basophils % 0.6 Nucleated RBC % 0 D-Dimer Sodium 139 Potassium 3.8 Chloride 103 Carbon Dioxide 29 Anion Gap 7 L BUN 26.1 H Creatinine 1.5 H Est GFR (CKD-EPI)AfAm 52.77 Est GFR (CKD-EPI)NonAf 45.53 Random Glucose 69 L Calcium 8.7 Phosphorus 3.6 Magnesium 2.2 Ferritin Total Bilirubin 0.3 AST 36 ALT 53 Alkaline Phosphatase 76 LD Total C-Reactive Protein Total Protein 6.8 Albumin 3.2 L SARS-CoV-2 Ab Interp Active Medications Generic Name Dose Route Start Last Admin Trade Name Freq PRN Reason Stop Dose Admin Albuterol Sulfate 2 puff 01/10/20 00:59 Ventolin Hfa Inhaler - IH Q6H PRN SHORT OF BREATH/WHEEZING Albuterol/Ipratropium 1 amp 01/10/20 05:56 Duoneb - NEB Q6H PRN SHORTNESS OF BREATH Amlodipine Besylate 10 mg 01/12/20 10:00 01/13/20 10:18 Norvasc - PO 10 mg DAILY [facility] Administration Ascorbic Acid 250 mg 01/10/20 10:00 01/13/20 10:19 Vitamin C - PO 250 mg DAILY [facility] Administration Budesonide/Formoterol Fumarate 2 puff 01/10/20 22:00 01/13/20 22:45 Symbicort 80/4.5mcg - IH 2 puff BID [facility] Administration Enoxaparin Sodium 40 mg 01/10/20 10:00 01/13/20 10:19 Lovenox - SQ 40 mg DAILY [facility] Administration Famotidine 20 mg 01/10/20 10:00 01/13/20 10:18 Pepcid - PO 20 mg DAILY [facility] Administration Hydrochlorothiazide 25 mg 01/14/20 07:35 Hctz - PO DAILY [facility] Azithromycin 500 mg in 250 mls @ 250 mls/hr 01/11/20 10:00 01/13/20 10:19 Zithromax 500mg Ivpb (Pre-Docked) IVPB 250 mls/hr DAILY [facility] Administration Ceftriaxone Sodium 1 gm/ 50 mls @ 100 mls/hr 01/11/20 13:59 01/13/20 10:19 Dextrose IVPB 100 mls/hr DAILY [facility] Administration Lisinopril 20 mg 01/10/20 22:00 01/13/20 21:41 Prinivil PO 20 mg HS [facility] Administration Methadone HCl 80 mg/ Methadone 85 mg 01/13/20 08:45 01/14/20 05:47 HCl 5 mg PO 85 mg 0600 [facility] Administration Nicotine 7 mg 01/10/20 10:00 01/13/20 10:17 Nicoderm Patch - TD 7 mg DAILY [facility] Administration Nitroglycerin 1 inch 01/11/20 17:34 01/11/20 21:22 Nitro-Bid 2% Paste - TD 1 inch Q6HPO PRN Administration HYPERTENSION Prednisone 20 mg 01/12/20 14:27 01/13/20 10:18 Deltasone - PO 20 mg DAILY [facility] Administration Zinc Sulfate 220 mg 01/10/20 10:00 01/13/20 21:41 Orazinc - PO 220 mg BID [facility] Administration Zolpidem Tartrate 5 mg 01/13/20 22:00 01/13/20 22:05 Ambien - PO 5 mg HS PRN Administration INSOMNIA ASSESSMENT AND PLAN: 74 Y M with a PMH of HTN, HLD, Tobacco use, Diet-controlled DM and Heroin use (snorts) who presents to the ER with fever and cough for 2 days and admitted for likely suspected Covid -19 # sepsis - resolved source remain unknown (pulmonary cause is still likely) feeling more energetic but still complaining of inability to sleep ruled out SARS-CoV19 WBC down, on IV ceftriaxone and Azithromycin repeat culture negative to date case discussed with ID prolonged QT will avoid levaquin use Pulm consult appreciated ID consult appreciated case discussed with consults 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 DVT proph Visit type - Emergency Visit Emergency Visit: Yes ED Registration Date: 01/10/20 Care time: The patient presented to the Emergency Department on the above date and was hospitalized for further evaluation of their emergent condition. - New Patient This patient is new to me today: No - Critical Care Critical Care patient: No - Discharge Referral Referred to [facility] No - Medication Review Med list reviewed for High Risk Meds patients 65 and older: Yes (yes)
[2020-01-14] MEDS ORDERED: PT OWN MED DRAWER 7, Y5N ONE (09:57)
[2020-01-14] MEDS ORDERED: cefTRIAXone SODIUM 1 GM VIAL ONE (09:57)
[2020-01-14] MEDS ORDERED: DEXTROSE 5%-WATER - 50 ML IVPB ONE (10:00)
[2020-01-14] MEDS: ZINC SULFATE 220 MG CAPSULE (FP) PO SCH ×2 (10:10→21:47)
[2020-01-14] MEDS: FAMOTIDINE 20 MG TABLET PO SCH (10:10)
[2020-01-14] MEDS: predniSONE 20 MG TABLET (UD) PO SCH (10:10)
[2020-01-14] MEDS: NICOTINE 7 MG/24 HOURS TOPICAL PATCH TD SCH (10:10)
[2020-01-14] MEDS: CEFTRIAXONE 1 GM in DEXTROSE 5%-WATER - 50 ML IVPB SCH (10:10)
[2020-01-14] MEDS: ENOXAPARIN NA (PORCINE) 40 MG/0.4 ML DISP.SYRIN SQ SCH (10:10)
[2020-01-14] MEDS: HYDROCHLOROTHIAZIDE 25 MG TABLET (FP) PO SCH (10:10)
[2020-01-14] MEDS: amLODIPine BESYLATE 10 MG TABLET (FP) PO SCH (10:10)
[2020-01-14] MEDS: ASCORBIC ACID 250 MG TABLET (FP) PO SCH (10:10)
[2020-01-14] MEDS: AZITHROMYCIN IVPB 500 MG/250 ML BAG IVPB SCH (11:49)
[2020-01-14] MEDS: BUDESONIDE/FORMETEROL FUMARATE 80/4.5 mcg INHALER IH SCH ×2 (11:50→21:48)
--- NOTE | 2020-01-14 12:20 | PN ---
Progress Note (short form) - Note Progress Note: PULMONARY Complaining of mouth pain No thrush /poor dentition noted Constitutional: Calm Eyes: Yes: WNL HENT: Yes: WNL Neck: Yes: WNL Cardiovascular: Yes: Regular Rate and Rhythm, S1, S2 Respiratory: Yes: Diminished Gastrointestinal: Yes: Normal Bowel Sounds, Soft Extremities: Yes: WNL Edema: No Labs/meds/images/notes reviewed - Problems (1) Suspected COVID-19 virus infection Code(s): Z20.828 - CONTACT W AND EXPOSURE TO OTH VIRAL COMMUNICABLE DISEASES (2) High blood pressure Code(s): I10 - ESSENTIAL (PRIMARY) HYPERTENSION (3) Nicotine dependence Code(s): F17.200 - NICOTINE DEPENDENCE, UNSPECIFIED, UNCOMPLICATED (4) HLD (hyperlipidemia) Code(s): E78.5 - HYPERLIPIDEMIA, UNSPECIFIED Assessment/Plan IMP SUSPECTED COVID19 BUT PCR NEGATIVE/ANTIBODIES POSITIVE (PAST INFECTION) SCATTERED BILATERAL PATCHY GROUND GLASS INFILTRATES COPD DM HTN SUBSTANCE ABUSE MEDIASTINAL ADENOPATHY LIKELY REACTIVE PETER PLAN SUPPLEMENTAL O2 INHALED BRONCHODILATORS PREDNISONE ABX COVID PCR NEGATIVE MONITOR INFLAMMATORY MARKERS MONITOR LYTES,RENAL FUNCTION F/U CHEST CT OUTPATIENT R CONCHA [facility]
--- NOTE | 2020-01-14 13:09 | PN ---
Progress Note, Physician History of Present Illness: stable feels uneasy - Current Medication List Current Medications: Active Medications Albuterol Sulfate (Ventolin Hfa Inhaler -) 2 puff IH Q6H PRN PRN Reason: SHORT OF BREATH/WHEEZING Albuterol/Ipratropium (Duoneb -) 1 amp NEB Q6H PRN PRN Reason: SHORTNESS OF BREATH Amlodipine Besylate (Norvasc -) 10 mg PO DAILY [facility] Last Admin: 01/14/20 10:10 Dose: 10 mg Documented by: Ascorbic Acid (Vitamin C -) 250 mg PO DAILY [facility] Last Admin: 01/14/20 10:10 Dose: 250 mg Documented by: Budesonide/Formoterol Fumarate (Symbicort 80/4.5mcg -) 2 puff IH BID [facility] Last Admin: 01/14/20 11:50 Dose: 2 puff Documented by: Enoxaparin Sodium (Lovenox -) 40 mg SQ DAILY [facility] Last Admin: 01/14/20 10:10 Dose: 40 mg Documented by: Famotidine (Pepcid -) 20 mg PO DAILY [facility] Last Admin: 01/14/20 10:10 Dose: 20 mg Documented by: Hydrochlorothiazide (Hctz -) 25 mg PO DAILY [facility] Last Admin: 01/14/20 10:10 Dose: 25 mg Documented by: Azithromycin (Zithromax 500mg Ivpb (Pre-Docked)) 500 mg in 250 mls @ 250 mls/hr IVPB DAILY [facility] Last Admin: 01/14/20 11:49 Dose: 250 mls/hr Documented by: Ceftriaxone Sodium 1 gm/ (Dextrose) 50 mls @ 100 mls/hr IVPB DAILY [facility] Last Admin: 01/14/20 10:10 Dose: 100 mls/hr Documented by: Lisinopril (Prinivil) 20 mg PO HS [facility] Last Admin: 01/13/20 21:41 Dose: 20 mg Documented by: Methadone HCl 80 mg/ Methadone (HCl 5 mg) 85 mg PO 0600 [facility] Last Admin: 01/14/20 05:47 Dose: 85 mg Documented by: Nicotine (Nicoderm Patch -) 7 mg TD DAILY [facility] Last Admin: 01/14/20 10:10 Dose: 7 mg Documented by: Nitroglycerin (Nitro-Bid 2% Paste -) 1 inch TD Q6HPO PRN PRN Reason: HYPERTENSION Last Admin: 01/11/20 21:22 Dose: 1 inch Documented by: Prednisone (Deltasone -) 20 mg PO DAILY [facility] Last Admin: 01/14/20 10:10 Dose: 20 mg Documented by: Zinc Sulfate (Orazinc -) 220 mg PO BID [facility] Last Admin: 01/14/20 10:10 Dose: 220 mg Documented by: Zolpidem Tartrate (Ambien -) 5 mg PO HS PRN PRN Reason: INSOMNIA Last Admin: 01/13/20 22:05 Dose: 5 mg Documented by: - Objective Vital Signs: Vital Signs Temperature 98 F 01/14/20 09:00 Pulse Rate 76 01/14/20 09:00 Respiratory Rate 18 01/14/20 09:00 Blood Pressure 156/95 01/14/20 09:00 O2 Sat by Pulse Oximetry (%) 98 01/14/20 09:00 Constitutional: Yes: Calm, Mild Distress Cardiovascular: Yes: S1, S2 Respiratory: Yes: Regular, CTA Bilaterally Gastrointestinal: Yes: Normal Bowel Sounds, Soft Musculoskeletal: Yes: WNL Extremities: Yes: WNL Neurological: Yes: Alert, Oriented Psychiatric: Yes: Alert, Oriented Labs: CBC, BMP 01/14/20 06:55 01/14/20 06:55 INR, PTT INR 1.03 (0.83-1.09) 01/09/20 21:45 Assessment/Plan 74 Y M with a PMH of HTN, HLD, Tobacco use, Diet-controlled DM and Heroin use (snorts) who presents to the ER with fever and cough for 2 days and admitted for likely suspected Covid -19 leukocytosis gm positive bacteremia substance abuse htn lung nodule plan continue current mgmt wbc trending down can stop zithro
[2020-01-14] MEDS: LISINOPRIL 5 MG TABLET (FP) PO SCH (21:47)
[2020-01-14] MEDS: ZOLPIDEM TARTRATE 5 MG TABLET PO PRN (23:53)
[2020-01-15] MEDS ORDERED: METHADONE HCL 40 MG DISPERSABLE TABLET ONE (05:19)
[2020-01-15] MEDS ORDERED: METHADONE HCL 5 MG TABLET ONE (05:20)
[2020-01-15] MEDS: METHADONE 80 MG, METHADONE 5 MG PO SCH (05:21)
--- NOTE | 2020-01-15 08:04 | PN ---
Progress Note, Physician History of Present Illness: stable no new issues - Current Medication List Current Medications: Active Medications Albuterol Sulfate (Ventolin Hfa Inhaler -) 2 puff IH Q6H PRN PRN Reason: SHORT OF BREATH/WHEEZING Amlodipine Besylate (Norvasc -) 10 mg PO DAILY [facility] Last Admin: 01/14/20 10:10 Dose: 10 mg Documented by: Ascorbic Acid (Vitamin C -) 250 mg PO DAILY [facility] Last Admin: 01/14/20 10:10 Dose: 250 mg Documented by: Budesonide/Formoterol Fumarate (Symbicort 80/4.5mcg -) 2 puff IH BID [facility] Last Admin: 01/14/20 21:48 Dose: 2 puff Documented by: Enoxaparin Sodium (Lovenox -) 40 mg SQ DAILY [facility] Last Admin: 01/14/20 10:10 Dose: 40 mg Documented by: Famotidine (Pepcid -) 20 mg PO DAILY [facility] Last Admin: 01/14/20 10:10 Dose: 20 mg Documented by: Hydrochlorothiazide (Hctz -) 25 mg PO DAILY [facility] Last Admin: 01/14/20 10:10 Dose: 25 mg Documented by: Ceftriaxone Sodium 1 gm/ (Dextrose) 50 mls @ 100 mls/hr IVPB DAILY [facility] Last Admin: 01/14/20 10:10 Dose: 100 mls/hr Documented by: Lisinopril (Prinivil) 20 mg PO HS [facility] Last Admin: 01/14/20 21:47 Dose: 20 mg Documented by: Methadone HCl 80 mg/ Methadone (HCl 5 mg) 85 mg PO 0600 [facility] Last Admin: 01/15/20 05:21 Dose: 85 mg Documented by: Nicotine (Nicoderm Patch -) 7 mg TD DAILY [facility] Last Admin: 01/14/20 10:10 Dose: 7 mg Documented by: Nitroglycerin (Nitro-Bid 2% Paste -) 1 inch TD Q6HPO PRN PRN Reason: HYPERTENSION Last Admin: 01/11/20 21:22 Dose: 1 inch Documented by: Prednisone (Deltasone -) 20 mg PO DAILY [facility] Last Admin: 01/14/20 10:10 Dose: 20 mg Documented by: Zinc Sulfate (Orazinc -) 220 mg PO BID [facility] Last Admin: 01/14/20 21:47 Dose: 220 mg Documented by: Zolpidem Tartrate (Ambien -) 5 mg PO HS PRN PRN Reason: INSOMNIA Last Admin: 01/14/20 23:53 Dose: 5 mg Documented by: - Objective Vital Signs: Vital Signs Temperature 98.8 F 01/15/20 06:00 Pulse Rate 62 01/15/20 06:00 Respiratory Rate 18 01/15/20 06:00 Blood Pressure 174/82 H 01/15/20 06:00 O2 Sat by Pulse Oximetry (%) 100 01/15/20 06:00 Constitutional: Yes: No Distress, Calm Cardiovascular: Yes: S1, S2 Respiratory: Yes: Regular, CTA Bilaterally Gastrointestinal: Yes: Normal Bowel Sounds, Soft Musculoskeletal: Yes: WNL Extremities: Yes: WNL Neurological: Yes: Alert, Oriented Psychiatric: Yes: Alert, Oriented Labs: CBC, BMP 01/14/20 06:55 01/14/20 06:55 INR, PTT INR 1.03 (0.83-1.09) 01/09/20 21:45 Assessment/Plan 74 Y M with a PMH of HTN, HLD, Tobacco use, Diet-controlled DM and Heroin use (snorts) who presents to the ER with fever and cough for 2 days and admitted for likely suspected Covid -19 leukocytosis gm positive bacteremia substance abuse htn lung nodule plan continue current mgmt wbc trending down can stop ceftriaxone might need follow up imaging
[2020-01-15 08:36] LABS: BASO % 0.5 % (0-2.0); EOS % 1.5 % (0-4.5); HEMOGLOBIN 13.8 GM/dL (11.7-16.9); LYMPH % 22.2 % (8-40); MCH 28.5 pg (25.7-33.7); MCHC 33.7 g/dl (32.0-35.9); MEAN CELL VOLUME 84.4 fl (80-96); MEAN PLT VOLUME 8.4 fl (7.5-11.1); MONO % 8.3 % (3.8-10.2); NEUT % 67.5 % (42.8-82.8); PLATELET COUNT 270 K/MM3 (134-434); RBC 4.85 M/mm3 (4.00-5.60); RDW 13.9 % (11.9-15.9); WHITE BLOOD COUNT 12.1 K/mm3 (4.0-10.0)
[2020-01-15 08:42] LABS: BLOOD UREA NITROGEN 31.2 mg/dL (7-18); CALCIUM 8.5 mg/dL (8.5-10.1); CREATININE 1.5 mg/dL (0.55-1.3); POTASSIUM 3.9 mmol/L (3.5-5.1)
[2020-01-15] MEDS ORDERED: cefTRIAXone SODIUM 1 GM VIAL ONE (10:12)
[2020-01-15] MEDS ORDERED: DEXTROSE 5%-WATER - 50 ML IVPB ONE (10:12)
[2020-01-15] MEDS: NICOTINE 7 MG/24 HOURS TOPICAL PATCH TD SCH (10:21)
[2020-01-15] MEDS: predniSONE 20 MG TABLET (UD) PO SCH (10:21)
[2020-01-15] MEDS: HYDROCHLOROTHIAZIDE 25 MG TABLET (FP) PO SCH (10:21)
[2020-01-15] MEDS: CEFTRIAXONE 1 GM in DEXTROSE 5%-WATER - 50 ML IVPB SCH (10:22)
[2020-01-15] MEDS: ENOXAPARIN NA (PORCINE) 40 MG/0.4 ML DISP.SYRIN SQ SCH (10:22)
[2020-01-15] MEDS: ASCORBIC ACID 250 MG TABLET (FP) PO SCH (10:22)
[2020-01-15] MEDS: FAMOTIDINE 20 MG TABLET PO SCH (10:22)
[2020-01-15] MEDS: amLODIPine BESYLATE 10 MG TABLET (FP) PO SCH (10:22)
[2020-01-15] MEDS: BUDESONIDE/FORMETEROL FUMARATE 80/4.5 mcg INHALER IH SCH (10:22)
[2020-01-15] MEDS: ZINC SULFATE 220 MG CAPSULE (FP) PO SCH (10:22)
[2020-01-15] MEDS ORDERED: LIDOCAINE VISCOUS 2% ORAL/TOP 20 ML UNIT-DOSE CUP MM ONE ×2 (11:55)
--- NOTE | 2020-01-15 12:01 | DS ---
Physical Exam: SUBJECTIVE: Patient seen and examined, only complains of mouth pain OBJECTIVE: Vital Signs Period Temp Pulse Resp BP Sys/Joyce Pulse Ox Last 24 Hr 98.1 F-98.8 F 62-65 18-18 157-174/81-87 97-100 PHYSICAL EXAM GENERAL: The patient is awake, alert, and fully oriented, in no acute distress. EYES: PERRL, extraocular movements intact ENT: poor dental hygeine, not erythema noted along gums NECK: Trachea midline, full range of motion, supple. LUNGS: Breath sounds equal, clear to auscultation bilaterally, no wheezes, no crackles, no accessory muscle use. HEART: Regular rate and rhythm, S1, S2 without murmur, rub or gallop. ABDOMEN: Soft, nontender, nondistended, normoactive bowel sounds, EXTREMITIES: 2+ pulses, warm, well-perfused, no edema. SKIN: Warm, dry, normal turgor, no rashes or lesions noted. LABS Laboratory Results - last 24 hr 01/15/20 01/15/20 07:22 07:22 WBC 12.1 H RBC 4.85 Hgb 13.8 Hct 41.0 MCV 84.4 MCH 28.5 MCHC 33.7 RDW 13.9 Plt Count 270 MPV 8.4 Absolute Neuts (auto) 8.2 H Neutrophils % 67.5 Lymphocytes % 22.2 Monocytes % 8.3 Eosinophils % 1.5 Basophils % 0.5 Nucleated RBC % 0 Sodium 138 Potassium 3.9 Chloride 102 Carbon Dioxide 28 Anion Gap 8 BUN 31.2 H Creatinine 1.5 H Est GFR (CKD-EPI)AfAm 52.77 Est GFR (CKD-EPI)NonAf 45.53 Random Glucose 67 L Calcium 8.5 HOSPITAL COURSE: Date of Admission:01/10/20 74yo M with PMHx of HTN, HLD, DM, and active heroin use who presents with fever, chills, SOB, runny nose, and coughing with yellow secretions. Patient was admitt ed to [facility]. hes rapid tests were negative x2, but he was positive for antibodies. Patients symptoms resolved. Treated with short course of steroids and antibiotics. [facility] found a lung nodule and patient was told he will need to follow up as outpatient. Patient stable for discharge. Chest CT: patchy foci predominately groundglass opacities scatterd, 0.4 cm nodule, diffuse bilateral centrilobular and paraseptal emphysematous changes Date of Discharge: 01/15/20 Minutes to complete discharge: 40 Discharge Summary Problems reviewed: Yes Reason For Visit: SHORTNESS OF BREATH, HYPOXIA, PNEUMONIA Current Active Problems HLD (hyperlipidemia) (Chronic) Condition: Stable - Instructions Diet, Activity, Other Instructions: You were admitted to the hospital for infection. You likely had a lung infection that has now resolved, you also have the antibodies for COVID-19 which means you had COVID in the past. You are currently stable for discharge. We did imaging while you were here and you were found to have a lung nodule, this needs to be followed with a CT scan in 6 months. 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 To help treat the COPD of your lungs please take: Albuterol inhaler 1 puff as needed by mouth every four hours Symbicort 2 puff's by mouth once a day While you were here you were found to have high blood pressure. To treat your blood pressure please take: amlodipine 10 mg by mouth every day lisinopril/HCZT 20-25mg by mouth everyday Please continue all your home medications. Continue to follow at your methadone clinic. Please follow up with your primary care physician, to monitor your blood pressure and adjust medications if needed. if you do not have one you can come to our clinic. Return to the Emergency Department if you have any nausea, vomiting, diarrhea, chest pain, shortness of breath, or worsening of symptoms. Referrals: [facility] [place] [facility] [Provider Group] Toshia Munroe [Non Staff, Medical] - Bi Villar MD [Staff Physician] - Disposition: HOME - Home Medications Comprehensive Discharge Medication List: Ambulatory Orders Quetiapine Fumarate [Seroquel -] 100 mg PO HS 01/11/14 Zolpidem Tartrate [Ambien] 10 mg PO HS 08/01/14 Albuterol Sulfate Inhaler - [Ventolin HFA Inhaler -] 2 puff IH Q6H PRN #1 inhaler 01/15/20 Amlodipine Besylate [Norvasc -] 10 mg PO DAILY #30 tablet 01/15/20 Budesonide/Formeterol Fumarate [SYMBICORT 80/4.5mcg -] 2 puff IH BID #1 inhaler 01/15/20 Hydrochlorothiazide [Hctz -] 25 mg PO DAILY #30 tablet 01/15/20 Lisinopril [Prinivil] 20 mg PO HS #30 tablet 01/15/20 Methadone [Dolophine -] 85 mg PO 0600 tablet 01/15/20 This patient is new to me today: Yes Date on this admission: 01/15/20 Emergency Visit: No Critical Care patient: No - Discharge Referral Referred to [facility] No ATTENDING PHYSICIAN STATEMENT I saw and evaluated the patient. I reviewed the resident's note and discussed the case with the resident. I agree with the resident's findings and plan as documented. SUBJECTIVE: OBJECTIVE: ASSESSMENT AND PLAN:
--- NOTE | 2020-01-15 12:17 | PN ---
Teaching Attending Note Name of Resident: Lita Medina ATTENDING PHYSICIAN STATEMENT I saw and evaluated the patient. I reviewed the resident's note and discussed the case with the resident. I agree with the resident's findings and plan as documented. SUBJECTIVE: pt seen and examined OBJECTIVE: Last Vital Signs Temp Pulse Resp BP Pulse Ox 98.8 F 62 18 174/82 H 100 01/15/20 06:00 01/15/20 06:00 01/15/20 06:00 01/15/20 06:00 01/15/20 06:00 GENERAL: Awake, alert, and fully oriented, in no acute distress. LUNGS: Breath sounds equal, clear to auscultation bilaterally. No wheezes, and no crackles. No accessory muscle use. HEART: Regular rate and rhythm, normal S1 and S2 ABDOMEN: Soft, nontender, not distended MUSCULOSKELETAL: Normal range of motion at all joints. No bony deformities or tenderness. No CVA tenderness. LOWER EXTREMITIES: 2+ pulses, warm, well-perfused. No calf tenderness. No peripheral edema. NEUROLOGICAL: Cranial nerves II-XII intact. Normal speech. CBCD WBC 12.1 K/mm3 (4.0-10.0) H 01/15/20 07:22 RBC 4.85 M/mm3 (4.00-5.60) 01/15/20 07:22 Hgb 13.8 GM/dL (11.7-16.9) 01/15/20 07:22 Hct 41.0 % (35.4-49) 01/15/20 07:22 MCV 84.4 fl (80-96) 01/15/20 07:22 MCHC 33.7 g/dl (32.0-35.9) 01/15/20 07:22 RDW 13.9 % (11.9-15.9) 01/15/20 07:22 Plt Count 270 K/MM3 (134-434) 01/15/20 07:22 MPV 8.4 fl (7.5-11.1) 01/15/20 07:22 CMP Sodium 138 mmol/L (136-145) 01/15/20 07:22 Potassium 3.9 mmol/L (3.5-5.1) 01/15/20 07:22 Chloride 102 mmol/L (98-107) 01/15/20 07:22 Carbon Dioxide 28 mmol/L (21-32) 01/15/20 07:22 Anion Gap 8 MMOL/L (8-16) 01/15/20 07:22 BUN 31.2 mg/dL (7-18) H 01/15/20 07:22 Creatinine 1.5 mg/dL (0.55-1.3) H 01/15/20 07:22 Calcium 8.5 mg/dL (8.5-10.1) 01/15/20 07:22 Total Bilirubin 0.3 mg/dL (0.2-1) 01/14/20 06:55 AST 36 U/L (15-37) 01/14/20 06:55 ALT 53 U/L (13-61) 01/14/20 06:55 Alkaline Phosphatase 76 U/L (45-117) 01/14/20 06:55 Total Protein 6.8 g/dl (6.4-8.2) 01/14/20 06:55 Albumin 3.2 g/dl (3.4-5.0) L 01/14/20 06:55 Active Medications Albuterol Sulfate (Ventolin Hfa Inhaler -) 2 puff IH Q6H PRN PRN Reason: SHORT OF BREATH/WHEEZING Amlodipine Besylate (Norvasc -) 10 mg PO DAILY [facility] Last Admin: 01/15/20 10:22 Dose: 10 mg Documented by: Ascorbic Acid (Vitamin C -) 250 mg PO DAILY [facility] Last Admin: 01/15/20 10:22 Dose: 250 mg Documented by: Budesonide/Formoterol Fumarate (Symbicort 80/4.5mcg -) 2 puff IH BID [facility] Last Admin: 01/15/20 10:22 Dose: 2 puff Documented by: Enoxaparin Sodium (Lovenox -) 40 mg SQ DAILY [facility] Last Admin: 01/15/20 10:22 Dose: 40 mg Documented by: Famotidine (Pepcid -) 20 mg PO DAILY [facility] Last Admin: 01/15/20 10:22 Dose: 20 mg Documented by: Hydrochlorothiazide (Hctz -) 25 mg PO DAILY [facility] Last Admin: 01/15/20 10:21 Dose: 25 mg Documented by: Ceftriaxone Sodium 1 gm/ (Dextrose) 50 mls @ 100 mls/hr IVPB DAILY [facility] Last Admin: 01/15/20 10:22 Dose: 100 mls/hr Documented by: Lidocaine HCl (Xylocaine 2% Viscous Oral -) 15 ml MM ONCE ONE Stop: 01/15/20 11:56 Lisinopril (Prinivil) 20 mg PO HS [facility] Last Admin: 01/14/20 21:47 Dose: 20 mg Documented by: Methadone HCl 80 mg/ Methadone (HCl 5 mg) 85 mg PO 0600 [facility] Last Admin: 01/15/20 05:21 Dose: 85 mg Documented by: Nicotine (Nicoderm Patch -) 7 mg TD DAILY [facility] Last Admin: 01/15/20 10:21 Dose: 7 mg Documented by: Nitroglycerin (Nitro-Bid 2% Paste -) 1 inch TD Q6HPO PRN PRN Reason: HYPERTENSION Last Admin: 01/11/20 21:22 Dose: 1 inch Documented by: Prednisone (Deltasone -) 20 mg PO DAILY [facility] Last Admin: 01/15/20 10:21 Dose: 20 mg Documented by: Zinc Sulfate (Orazinc -) 220 mg PO BID [facility] Last Admin: 01/15/20 10:22 Dose: 220 mg Documented by: Zolpidem Tartrate (Ambien -) 5 mg PO HS PRN PRN Reason: INSOMNIA Last Admin: 01/14/20 23:53 Dose: 5 mg Documented by: ASSESSMENT AND PLAN: 74 Y M with a PMH of HTN, HLD, Tobacco use, Diet-controlled DM and Heroin use (snorts) who presents to the ER with fever and cough for 2 days and admitted for likely suspected Covid -19 # sepsis - resolved source remain unknown (pulmonary cause is still likely) asymptomatic ruled out SARS-CoV19 d/c Abx per ID repeat culture negative to date case discussed with ID Pulm consult appreciated ID consult appreciated case discussed with consults 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 DVT proph
[2020-01-15 12:39] VITALS: BP 167/79; PULSE 66; TEMP 98.2
== END 2020-01-15 17:16 | disposition home or self-care (01) | DRG 872 ==
LOC: JER 20:53 → JERBED 01-10 01:25 → J6S 01-10 10:44
PROVIDERS: ADMIT Internal Medicine; ATTEND Student in an Organized Health Care Education/Training Program
DX: A41.89 Other specified sepsis (principal); N17.9 Acute kidney failure, unspecified; F11.20 Opioid dependence, uncomplicated; J44.1 Chronic obstructive pulmonary disease with (acute) exacerbation; I10 Essential (primary) hypertension; E78.5 Hyperlipidemia, unspecified; E11.9 Type 2 diabetes mellitus without complications; R50.9 Fever, unspecified; F17.210 Nicotine dependence, cigarettes, uncomplicated; J44.9 Chronic obstructive pulmonary disease, unspecified; R59.0 Localized enlarged lymph nodes; D72.829 Elevated white blood cell count, unspecified; G47.00 Insomnia, unspecified
CPT/HCPCS: 36415; 71045-TC-FY; 71250-TC; 80048; 80053; 81003; 82728; 82803; 82962; 83605; 83615; 83735; 84100; 84484; 85025; 85379; 85610; 85730; 86140; 86769; 87040; 87086; 87389; 87804; 87899; 90670; 93005; 93010; 99285-25; J0131; U0003

== ENCOUNTER 2022-08-16 12:33 | Inpatient (IN) | payer OTHER ==
[2022-08-16] MEDS ORDERED: amLODIPine BESYLATE 10 MG TABLET (FP) PO ONE (13:42)
[2022-08-16] MEDS ORDERED: SODIUM CHLORIDE 0.9% 500 ML INFUS.BAG IV ONE (13:42)
[2022-08-16] MEDS ORDERED: amLODIPine BESYLATE 10 MG TABLET (FP) ONE (14:01)
[2022-08-16 14:45] LABS: EOS % 0.7 % (0-4.5); HEMOGLOBIN 14.5 GM/dL (11.7-16.9); LYMPH % 16.2 % (8-40); MCH 28.7 pg (25.7-33.7); MCHC 34.5 g/dl (32.0-35.9); MEAN CELL VOLUME 83.1 fl (80-96); MEAN PLT VOLUME 9.3 fl (7.5-11.1); MONO % 5.1 % (3.8-10.2); PLATELET COUNT 278 10^3/uL (134-434); RBC 5.06 M/mm3 (4.00-5.60); RDW 14.1 % (11.9-15.9); WHITE BLOOD COUNT 8.2 K/mm3 (4.0-10.0)
[2022-08-16 14:52] LABS: INR 1.1 (0.83-1.09); PROTHROMBIN TIME (PATIENT) 12.7 SEC (9.7-13.0)
[2022-08-16 14:54] LABS: ACTIVATED PTT 29.7 SECONDS (25.2-36.5)
[2022-08-16 14:56] LABS: EPI CELLS 7 /uL (0-25.1); HYALINE CASTS 0 /uL (0-3.1); PH,URINE 5.5 (5.0-8.0); URINE APPEARANCE CLEAR; URINE BACTERIA 18 /uL (0-1359); URINE BILIRUBIN NEGATIVE (NEGATIVE); URINE COLOR YELLOW; URINE GLUCOSE (UA) NEGATIVE (NEGATIVE); URINE KETONE 1+ (NEGATIVE); URINE LEUK ESTERASE NEGATIVE (NEGATIVE); URINE NITRITE NEGATIVE (NEGATIVE); URINE PROTEIN 1+ (NEGATIVE); URINE RBC 30 /uL (0-23.9); URINE WBC 12 /uL (0-25.8)
[2022-08-16 15:05] LABS: CALCIUM 8.8 mg/dL (8.5-10.1); URINE BARBITURATES NEGATIVE (NEGATIVE)
[2022-08-16 15:06] LABS: BLOOD UREA NITROGEN 25.6 mg/dL (7-18); MAGNESIUM 2.1 mg/dL (1.8-2.4); METHADONE, UR NEGATIVE (NEGATIVE); PHENCYCLIDINE,URINE NEGATIVE (NEGATIVE); URINE AMPHETAMINES NEGATIVE (NEGATIVE)
[2022-08-16 15:07] LABS: COCAINE, UR NEGATIVE (NEGATIVE)
[2022-08-16 15:09] LABS: CREATININE 1.6 mg/dL (0.55-1.3)
[2022-08-16 15:10] LABS: OPIATES, URI POSITIVE (NEGATIVE); TOT PROT 7.4 g/dl (6.4-8.2); URINE BENZODIAZEPINES POSITIVE (NEGATIVE)
[2022-08-16 15:11] LABS: BILIRUBIN,TOTAL 0.5 mg/dL (0.2-1)
[2022-08-16 15:14] LABS: N-TERMINAL BNP 5333.7 pg/ml (5-450)
[2022-08-16] MEDS ORDERED: FUROSEMIDE 40 MG/4 ML INJECTABLE VIAL IVPUSH ONE (16:57)
[2022-08-16] MEDS ORDERED: FUROSEMIDE 40 MG/4 ML INJECTABLE VIAL ONE (17:40)
[2022-08-16] MEDS ORDERED: ATORVASTATIN CA 80 MG TABLET (FP) PO SCH (22:00)
[2022-08-16] MEDS: VALSARTAN 80 MG TABLET PO SCH (22:02)
[2022-08-16] MEDS ORDERED: MELATONIN 5 MG TABLETS PO ONE (22:38)
[2022-08-16] MEDS ORDERED: NICOTINE 14 MG/24 HOURS TOPICAL PATCH TD SCH (22:45)
[2022-08-17] MEDS: VALSARTAN 80 MG TABLET PO SCH ×2 (09:41→22:04)
[2022-08-17] MEDS: FUROSEMIDE 40 MG/4 ML INJECTABLE VIAL IVPUSH SCH ×2 (09:41→13:02)
[2022-08-17] MEDS ORDERED: CEFTRIAXONE 1 GM in DEXTROSE 5%-WATER - 50 ML IVPB SCH (10:00)
[2022-08-17] MEDS ORDERED: ENOXAPARIN NA (PORCINE) 40 MG/0.4 ML DISP.SYRIN SQ SCH (10:00)
[2022-08-17] MEDS ORDERED: CARVEDILOL 6.25 MG TABLET (FP) PO SCH (10:00)
[2022-08-17 10:13] LABS: BASO % 0.9 % (0-2.0); EOS % 1.2 % (0-4.5); HEMATOCRIT 42.3 % (35.4-49); HEMOGLOBIN 14.9 GM/dL (11.7-16.9); LYMPH % 13.9 % (8-40); MCH 28.9 pg (25.7-33.7); MCHC 35.2 g/dl (32.0-35.9); MEAN CELL VOLUME 82.3 fl (80-96); MEAN PLT VOLUME 9.8 fl (7.5-11.1); MONO % 5.3 % (3.8-10.2); NEUT % 78.7 % (42.8-82.8); PLATELET COUNT 314 10^3/uL (134-434); RBC 5.14 M/mm3 (4.00-5.60); RDW 14.4 % (11.9-15.9); WHITE BLOOD COUNT 9.8 K/mm3 (4.0-10.0)
[2022-08-17 10:19] LABS: INR 1.12 (0.83-1.09)
[2022-08-17 10:20] LABS: ACTIVATED PTT 28.7 SECONDS (25.2-36.5)
[2022-08-17 10:36] LABS: BLOOD UREA NITROGEN 27.4 mg/dL (7-18); CALCIUM 9.8 mg/dL (8.5-10.1)
[2022-08-17 10:37] LABS: ALBUMIN 4.2 g/dl (3.4-5.0)
[2022-08-17 10:39] LABS: PHOSPHOROUS 2.9 mg/dL (2.5-4.9)
[2022-08-17 10:41] LABS: BILIRUBIN,TOTAL 0.7 mg/dL (0.2-1); CREATININE 1.6 mg/dL (0.55-1.3)
[2022-08-17 10:43] LABS: TOT PROT 7.6 g/dl (6.4-8.2)
[2022-08-17 10:45] LABS: N-TERMINAL BNP 3234.1 pg/ml (5-450)
[2022-08-17 12:04] LABS: HIV INTERPRETATION NEGATIVE (NEGATIVE)
[2022-08-17] MEDS ORDERED: hydrALAZINE HCL 20 MG/ML VIAL IVPUSH ONE (15:13)
[2022-08-17] MEDS ORDERED: methaDONE HCL 10 MG TABLET (FOR DETOX USE ONLY) PO ONE (16:23)
[2022-08-17] MEDS ORDERED: methaDONE 80 MG, methaDONE 10 MG PO ONE (16:30)
[2022-08-17] MEDS ORDERED: methaDONE HCL 10 MG TABLET PO ONE (17:00)
[2022-08-17] MEDS ORDERED: NITROGLYCERIN 25MG/D5W 250ML 25 MG/250 ML ML IVPB SCH (18:45)
[2022-08-17] MEDS: MUPIROCIN 2% TOPICAL OINTMENT FOR DECOLONIZATION NS SCH (22:03)
[2022-08-17] MEDS: CHLORHEXIDINE GLUCONATE 4% CLEANSER FOR DECOLONIZATION TP SCH (22:04)
[2022-08-17] MEDS: ATORVASTATIN CA 80 MG TABLET (FP) PO SCH (22:04)
[2022-08-17] MEDS: NICOTINE 14 MG/24 HOURS TOPICAL PATCH TD SCH (22:04)
[2022-08-17] MEDS: CARVEDILOL 6.25 MG TABLET (FP) PO SCH (22:04)
[2022-08-17] MEDS ORDERED: ACETAMINOPHEN 1000 MG/100 ML BAG IVPB STA (22:43)
[2022-08-17] MEDS: MELATONIN 5 MG TABLETS PO SCH (22:55)
[2022-08-18] MEDS ORDERED: ZOLPIDEM TARTRATE 5 MG TABLET PO STA (03:28)
[2022-08-18 07:48] LABS: HEMATOCRIT 44.6 % (35.4-49); HEMOGLOBIN 15.6 GM/dL (11.7-16.9); MCH 28.7 pg (25.7-33.7); MCHC 35.1 g/dl (32.0-35.9); MEAN PLT VOLUME 9.8 fl (7.5-11.1); PLATELET COUNT 341 10^3/uL (134-434); RBC 5.44 M/mm3 (4.00-5.60); RDW 14.7 % (11.9-15.9)
[2022-08-18 08:08] LABS: CALCIUM 9.6 mg/dL (8.5-10.1); MAGNESIUM 1.8 mg/dL (1.8-2.4)
[2022-08-18 08:09] LABS: ALBUMIN 4.2 g/dl (3.4-5.0)
[2022-08-18 08:10] LABS: CREATININE 1.7 mg/dL (0.55-1.3)
[2022-08-18 08:12] LABS: PHOSPHOROUS 3.9 mg/dL (2.5-4.9); TOT PROT 7.6 g/dl (6.4-8.2)
[2022-08-18 08:13] LABS: BILIRUBIN,DIRECT 0.2 mg/dL (0.0-0.2)
[2022-08-18 08:14] LABS: BILIRUBIN,TOTAL 0.7 mg/dL (0.2-1)
[2022-08-18] MEDS: CARVEDILOL 6.25 MG TABLET (FP) PO SCH ×2 (09:41→21:08)
[2022-08-18] MEDS: VALSARTAN 80 MG TABLET PO SCH (09:41)
[2022-08-18] MEDS: ENOXAPARIN NA (PORCINE) 40 MG/0.4 ML DISP.SYRIN SQ SCH (09:49)
[2022-08-18] MEDS: MUPIROCIN 2% TOPICAL OINTMENT FOR DECOLONIZATION NS SCH ×2 (09:49→21:06)
[2022-08-18] MEDS ORDERED: FUROSEMIDE 40 MG/4 ML INJECTABLE VIAL IVPUSH SCH (10:00)
[2022-08-18] MEDS ORDERED: niCARdipine HCL 25 MG/10 ML - 10 ML VIAL IVPB SCH (11:15)
[2022-08-18] MEDS ORDERED: NIFEdipine E.R. 30 MG TABLET PO SCH (11:45)
[2022-08-18] MEDS ORDERED: ONDANSETRON 4 MG/2 ML VIAL IVPB ONE (13:28)
[2022-08-18 15:52] VITALS: BMI 23.8
[2022-08-18] MEDS ORDERED: SACUBITRIL/VALSARTAN 24 MG-26 MG TABLET PO SCH ×2 (17:26→22:00)
[2022-08-18] MEDS: SACUBITRIL/VALSARTAN 24 MG-26 MG TABLET PO SCH ×2 (17:39→21:10)
[2022-08-18] MEDS: ZOLPIDEM TARTRATE 5 MG TABLET PO PRN (21:07)
[2022-08-18] MEDS: MELATONIN 5 MG TABLETS PO SCH (21:07)
[2022-08-18] MEDS: ATORVASTATIN CA 80 MG TABLET (FP) PO SCH (21:08)
[2022-08-18] MEDS: CHLORHEXIDINE GLUCONATE 4% CLEANSER FOR DECOLONIZATION TP SCH (21:08)
[2022-08-18] MEDS: NICOTINE 14 MG/24 HOURS TOPICAL PATCH TD SCH (22:02)
[2022-08-19] MEDS ORDERED: SACUBITRIL/VALSARTAN 24 MG-26 MG TABLET PO SCH (10:00)
[2022-08-19] MEDS ORDERED: SACUBITRIL/VALSARTAN 49 MG-51 MG TABLET PO SCH ×2 (10:00→22:00)
[2022-08-19] MEDS ORDERED: methaDONE HCL 10 MG TABLET PO ONE (10:06)
[2022-08-19] MEDS: MUPIROCIN 2% TOPICAL OINTMENT FOR DECOLONIZATION NS SCH ×2 (10:11→21:16)
[2022-08-19] MEDS: CARVEDILOL 6.25 MG TABLET (FP) PO SCH ×2 (10:11→21:10)
[2022-08-19] MEDS: ASPIRIN COATED 81 MG TABLET.EC PO SCH (10:11)
[2022-08-19] MEDS: ENOXAPARIN NA (PORCINE) 40 MG/0.4 ML DISP.SYRIN SQ SCH (10:11)
[2022-08-19] MEDS: cloNIDine HCL 0.1 MG TABLET PO PRN (10:44)
[2022-08-19 12:20] LABS: HEMATOCRIT 45.8 % (35.4-49); HEMOGLOBIN 15.7 GM/dL (11.7-16.9); MCH 28.3 pg (25.7-33.7); MCHC 34.3 g/dl (32.0-35.9); MEAN CELL VOLUME 82.4 fl (80-96); MEAN PLT VOLUME 9.4 fl (7.5-11.1); PLATELET COUNT 375 10^3/uL (134-434); RBC 5.55 M/mm3 (4.00-5.60); RDW 14.6 % (11.9-15.9); WHITE BLOOD COUNT 18.2 K/mm3 (4.0-10.0)
[2022-08-19 12:41] LABS: CALCIUM 9.3 mg/dL (8.5-10.1)
[2022-08-19 12:42] LABS: BLOOD UREA NITROGEN 28.4 mg/dL (7-18); MAGNESIUM 2.1 mg/dL (1.8-2.4)
[2022-08-19 12:45] LABS: CREATININE 1.4 mg/dL (0.55-1.3); PHOSPHOROUS 3.5 mg/dL (2.5-4.9)
[2022-08-19] MEDS: MELATONIN 5 MG TABLETS PO SCH (21:10)
[2022-08-19] MEDS: ATORVASTATIN CA 80 MG TABLET (FP) PO SCH (21:10)
[2022-08-19] MEDS: NICOTINE 14 MG/24 HOURS TOPICAL PATCH TD SCH (21:10)
[2022-08-19] MEDS: SACUBITRIL/VALSARTAN 24 MG-26 MG TABLET PO SCH (21:10)
[2022-08-19] MEDS: CHLORHEXIDINE GLUCONATE 4% CLEANSER FOR DECOLONIZATION TP SCH (21:16)
[2022-08-19] MEDS: ZOLPIDEM TARTRATE 5 MG TABLET PO PRN (22:26)
[2022-08-20] MEDS: cloNIDine HCL 0.1 MG TABLET PO PRN ×2 (04:11→23:07)
[2022-08-20 07:54] LABS: BASO % 0.6 % (0-2.0); EOS % 0.6 % (0-4.5); HEMATOCRIT 45.9 % (35.4-49); LYMPH % 15.6 % (8-40); MCHC 34.8 g/dl (32.0-35.9); MEAN CELL VOLUME 83.2 fl (80-96); MEAN PLT VOLUME 9.7 fl (7.5-11.1); MONO % 6.4 % (3.8-10.2); NEUT % 76.8 % (42.8-82.8); PLATELET COUNT 332 10^3/uL (134-434); RBC 5.51 M/mm3 (4.00-5.60); RDW 14.4 % (11.9-15.9); WHITE BLOOD COUNT 14.5 K/mm3 (4.0-10.0)
[2022-08-20 08:14] LABS: CALCIUM 8.9 mg/dL (8.5-10.1)
[2022-08-20 08:15] LABS: ALBUMIN 3.5 g/dl (3.4-5.0); BLOOD UREA NITROGEN 30.6 mg/dL (7-18)
[2022-08-20 08:18] LABS: CREATININE 1.6 mg/dL (0.55-1.3); PHOSPHOROUS 3.6 mg/dL (2.5-4.9)
[2022-08-20 08:19] LABS: TOT PROT 6.6 g/dl (6.4-8.2)
[2022-08-20 08:22] LABS: BILIRUBIN,TOTAL 0.8 mg/dL (0.2-1)
[2022-08-20] MEDS: ENOXAPARIN NA (PORCINE) 40 MG/0.4 ML DISP.SYRIN SQ SCH (09:38)
[2022-08-20] MEDS: CARVEDILOL 6.25 MG TABLET (FP) PO SCH ×3 (09:41→21:07)
[2022-08-20] MEDS: SACUBITRIL/VALSARTAN 24 MG-26 MG TABLET PO SCH ×2 (09:43→21:06)
[2022-08-20] MEDS: MUPIROCIN 2% TOPICAL OINTMENT FOR DECOLONIZATION NS SCH ×2 (09:50→21:07)
[2022-08-20] MEDS: ASPIRIN COATED 81 MG TABLET.EC PO SCH (10:25)
[2022-08-20] MEDS: ATORVASTATIN CA 80 MG TABLET (FP) PO SCH (21:06)
[2022-08-20] MEDS: MELATONIN 5 MG TABLETS PO SCH (21:06)
[2022-08-20] MEDS: CHLORHEXIDINE GLUCONATE 4% CLEANSER FOR DECOLONIZATION TP SCH (21:07)
[2022-08-20] MEDS: NICOTINE 14 MG/24 HOURS TOPICAL PATCH TD SCH (21:08)
[2022-08-20] MEDS: ZOLPIDEM TARTRATE 5 MG TABLET PO PRN (23:07)
[2022-08-21 07:42] LABS: HEMATOCRIT 44.5 % (35.4-49); HEMOGLOBIN 15.4 GM/dL (11.7-16.9); MCHC 34.7 g/dl (32.0-35.9); MEAN CELL VOLUME 83.7 fl (80-96); MEAN PLT VOLUME 9.8 fl (7.5-11.1); PLATELET COUNT 302 10^3/uL (134-434); RBC 5.32 M/mm3 (4.00-5.60); RDW 14.6 % (11.9-15.9); WHITE BLOOD COUNT 12.7 K/mm3 (4.0-10.0)
[2022-08-21 08:20] LABS: CALCIUM 9.2 mg/dL (8.5-10.1)
[2022-08-21 08:21] LABS: ALBUMIN 3.6 g/dl (3.4-5.0); BLOOD UREA NITROGEN 33.8 mg/dL (7-18); MAGNESIUM 2.2 mg/dL (1.8-2.4)
[2022-08-21 08:22] LABS: CREATININE 1.6 mg/dL (0.55-1.3); PHOSPHOROUS 3.4 mg/dL (2.5-4.9)
[2022-08-21 08:24] LABS: TOT PROT 6.8 g/dl (6.4-8.2)
[2022-08-21 08:27] LABS: BILIRUBIN,TOTAL 0.7 mg/dL (0.2-1)
[2022-08-21] MEDS: ENOXAPARIN NA (PORCINE) 40 MG/0.4 ML DISP.SYRIN SQ SCH (09:22)
[2022-08-21] MEDS: SACUBITRIL/VALSARTAN 24 MG-26 MG TABLET PO SCH (09:22)
[2022-08-21] MEDS: ASPIRIN COATED 81 MG TABLET.EC PO SCH (09:23)
[2022-08-21] MEDS: MUPIROCIN 2% TOPICAL OINTMENT FOR DECOLONIZATION NS SCH (09:23)
[2022-08-21] MEDS: CARVEDILOL 6.25 MG TABLET (FP) PO SCH (09:23)
[2022-08-21] MEDS ORDERED: POLYETHYLENE GLYCOL (HEALTHYLAX) 3350 17 GM PACKET PO SCH ×2 (10:00)
[2022-08-21] MEDS ORDERED: methaDONE HCL 10 MG TABLET PO ONE (10:00)
[2022-08-21 12:19] VITALS: BP 146/80; PULSE 63; RESP 17; TEMP 98.8
[2022-08-21] MEDS ORDERED: SENNOSIDES 8.8 MG/5 ML SYRUP PO SCH (22:00)
[2022-08-23] MEDS ORDERED: methaDONE HCL 10 MG TABLET PO ONE (10:00)
== END 2022-08-21 15:22 | disposition home or self-care (01) | DRG 291 ==
LOC: JER 12:33 → JERBED 15:48 → J5S 19:41 → JICU 08-17 15:36
PROVIDERS: ADMIT Internal Medicine; ATTEND Internal Medicine
DX: I13.0 Hypertensive heart and chronic kidney disease with heart failure and stage 1 through stage 4 chronic kidney disease, or unspecified chronic kidney disease (principal); I50.43 Acute on chronic combined systolic (congestive) and diastolic (congestive) heart failure; I16.1 Hypertensive emergency; N39.0 Urinary tract infection, site not specified; F11.20 Opioid dependence, uncomplicated; I42.9 Cardiomyopathy, unspecified; E11.22 Type 2 diabetes mellitus with diabetic chronic kidney disease; N18.30 Chronic kidney disease, stage 3 unspecified; E78.5 Hyperlipidemia, unspecified; F17.210 Nicotine dependence, cigarettes, uncomplicated; I16.0 Hypertensive urgency
CPT/HCPCS: 0241U-QW; 36415; 70450-TC; 71045-TC-FY; 71250-TC; 74176-TC; 76775-TC; 80048; 80053; 80061; 80076; 80307; 81003; 82550; 82553; 82728; 82962; 83036; 83540; 83550; 83735; 83880; 84100; 84436; 84443; 84479; 84484; 85025; 85027; 85610; 85730; 86140; 87040; 87086; 87389; 93005; 93010; 93306-TC; 99285-25

== ENCOUNTER 2022-12-05 11:28 | Inpatient (IN) | payer OTHER ==
[2022-12-05 13:30] VITALS: BMI 23.6
[2022-12-05] MEDS ORDERED: BENZOCAINE/MENTHOL (CHLORASEPTIC ) LOZENGE MM PRN (17:26)
[2022-12-05] MEDS ORDERED: MAG HYDROX/AL HYDROX/SIMETH 30 ML UNIT-DOSE CUP PO PRN (17:26)
[2022-12-05] MEDS ORDERED: ONDANSETRON *ODT* 4 MG TABLET SL PRN (17:26)
[2022-12-05] MEDS ORDERED: NALOXONE HCL 0.4 MG/ML VIAL IM PRN (17:26)
[2022-12-05] MEDS ORDERED: diazePAM 5 MG TABLET PO PRN (17:26)
[2022-12-05] MEDS ORDERED: IBUPROFEN 600 MG TABLET (FP) PO PRN (17:26)
[2022-12-05] MEDS ORDERED: guaiFENesin 600 MG TABLET.ER (FP) PO PRN (17:26)
[2022-12-05] MEDS ORDERED: ACETAMINOPHEN 325 MG TABLET (FP) PO PRN (17:26)
[2022-12-05] MEDS ORDERED: IBUPROFEN 400 MG TABLET (FP) PO PRN (17:26)
[2022-12-05] MEDS ORDERED: MAGNESIUM HYDROX 2400MG/30ML ORAL SUSPENSION 30 ML CUP PO PRN (17:26)
[2022-12-05] MEDS ORDERED: NALOXONE HCL (KLOXXADO) 8 MG SPRAY NS PRN (17:26)
[2022-12-05] MEDS ORDERED: BENZONATATE 200 MG CAPSULE PO PRN (17:26)
[2022-12-05] MEDS ORDERED: DICYCLOMINE HCL 10 MG CAPSULE PO PRN (17:26)
[2022-12-05] MEDS ORDERED: BISMUTH SUBSALICYLATE 524 MG/30 ML PO PRN (17:26)
[2022-12-05] MEDS ORDERED: LOPERAMIDE HCL 2 MG CAPSULE PO PRN (17:26)
[2022-12-05] MEDS ORDERED: POLYETHYLENE GLYCOL (HEALTHYLAX) 3350 17 GM PACKET PO PRN (17:26)
[2022-12-05] MEDS ORDERED: cloNIDine HCL 0.1 MG TABLET PO ONE (17:30)
[2022-12-05] MEDS ORDERED: cloNIDine HCL 0.1 MG TABLET ONE (17:37)
[2022-12-05] MEDS: METHOCARBAMOL 500 MG TABLET PO PRN (22:48)
[2022-12-05] MEDS: MELATONIN 5 MG TABLETS PO SCH (22:49)
[2022-12-05] MEDS: THIAMINE HCL 100 MG TABLET (FP) PO SCH (22:49)
[2022-12-05] MEDS ORDERED: diazePAM 5 MG TABLET PO SCH (23:00)
[2022-12-06] MEDS: hydrOXYzine PAMOATE 25 MG CAPSULE (FP) PO PRN ×3 (06:14→22:27)
[2022-12-06] MEDS: PRENATAL VITAMINS W/ FOLIC ACID TABLET (FP) PO SCH (10:31)
[2022-12-06] MEDS: METHOCARBAMOL 500 MG TABLET PO PRN (10:31)
[2022-12-06] MEDS ORDERED: methaDONE HCL 10 MG TABLET PO ONE (15:15)
[2022-12-06] MEDS: MELATONIN 5 MG TABLETS PO SCH (22:26)
[2022-12-06] MEDS: THIAMINE HCL 100 MG TABLET (FP) PO SCH (22:27)
[2022-12-07] MEDS ORDERED: diazePAM 5 MG TABLET PO SCH (06:00)
[2022-12-07] MEDS ORDERED: ALBUTEROL SO4 HFA INHALER IH PRN (08:46)
[2022-12-07] MEDS ORDERED: CARVEDILOL 6.25 MG TABLET (FP) PO SCH (10:00)
[2022-12-07] MEDS ORDERED: SACUBITRIL/VALSARTAN 24 MG-26 MG TABLET PO SCH (10:00)
[2022-12-07 10:12] VITALS: BP 137/66; PULSE 87; RESP 18; TEMP 97.2
[2022-12-07] MEDS: PRENATAL VITAMINS W/ FOLIC ACID TABLET (FP) PO SCH (10:17)
[2022-12-07] MEDS: hydrOXYzine PAMOATE 25 MG CAPSULE (FP) PO PRN (10:17)
[2022-12-07] MEDS: METHOCARBAMOL 500 MG TABLET PO PRN (10:17)
[2022-12-07] MEDS ORDERED: ATORVASTATIN CA 40 MG TABLET (FP) PO SCH (22:00)
[2022-12-08] MEDS ORDERED: diazePAM 5 MG TABLET PO SCH (06:00)
[2022-12-09] MEDS ORDERED: diazePAM 5 MG TABLET PO ONE (06:00)
== END 2022-12-07 12:02 | disposition home or self-care (01) | DRG 897 ==
LOC: SUATTDRO 11:28 → YASAS 11:28 → Y6N 17:20
PROVIDERS: ADMIT Allergy & Immunology; ATTEND Psychiatry & Neurology Pain Medicine
PROC: HZ2ZZZZ Detoxification Services for Substance Abuse Treatment (ICD-10-PCS; principal; 2022-12-05)
DX: F13.230 Sedative, hypnotic or anxiolytic dependence with withdrawal, uncomplicated (principal); F11.20 Opioid dependence, uncomplicated; F17.210 Nicotine dependence, cigarettes, uncomplicated; E78.5 Hyperlipidemia, unspecified; I12.9 Hypertensive chronic kidney disease with stage 1 through stage 4 chronic kidney disease, or unspecified chronic kidney disease; N18.32 Chronic kidney disease, stage 3b; J45.20 Mild intermittent asthma, uncomplicated
CPT/HCPCS: 36415; 86780

== ENCOUNTER 2023-06-05 13:02 | Inpatient (IN) | payer OTHER ==
[2023-06-05 14:45] VITALS: BMI 24.2
[2023-06-05] MEDS ORDERED: NALOXONE HCL (KLOXXADO) 8 MG SPRAY NS PRN (18:16)
[2023-06-05] MEDS ORDERED: POLYETHYLENE GLYCOL (HEALTHYLAX) 3350 17 GM PACKET PO PRN (18:16)
[2023-06-05] MEDS ORDERED: NALOXONE HCL 0.4 MG/ML VIAL IM PRN (18:16)
[2023-06-05] MEDS ORDERED: P-EPHED 60MG/TRIPROLIDI 2.5MG TABLET PO PRN (18:16)
[2023-06-05] MEDS ORDERED: BENZOCAINE/MENTHOL (CHLORASEPTIC ) LOZENGE MM PRN (18:16)
[2023-06-05] MEDS ORDERED: MAGNESIUM HYDROX 2400MG/30ML ORAL SUSPENSION 30 ML CUP PO PRN (18:16)
[2023-06-05] MEDS ORDERED: ONDANSETRON *ODT* 4 MG TABLET SL PRN (18:16)
[2023-06-05] MEDS ORDERED: guaiFENesin 600 MG TABLET.ER (FP) PO PRN (18:16)
[2023-06-05] MEDS ORDERED: ACETAMINOPHEN 325 MG TABLET (FP) PO PRN (18:16)
[2023-06-05] MEDS ORDERED: ALBUTEROL SO4 HFA INHALER IH PRN (20:03)
[2023-06-05] MEDS: CARVEDILOL 6.25 MG TABLET (FP) PO SCH (21:44)
[2023-06-05] MEDS: THIAMINE HCL 100 MG TABLET (FP) PO SCH (21:44)
[2023-06-05] MEDS: ATORVASTATIN CA 40 MG TABLET (FP) PO SCH (21:44)
[2023-06-05] MEDS: MELATONIN 5 MG TABLETS PO SCH (21:45)
[2023-06-05] MEDS: IBUPROFEN 400 MG TABLET (FP) PO PRN (21:53)
[2023-06-06] MEDS ORDERED: BUPRENORPHINE HCL 150 MCG, BUPRENORPHINE HCL 75 MCG BC PRN (08:11)
[2023-06-06] MEDS: LOPERAMIDE HCL 2 MG CAPSULE PO PRN (10:02)
[2023-06-06] MEDS: SACUBITRIL/VALSARTAN 24 MG-26 MG TABLET PO SCH (10:16)
[2023-06-06] MEDS: PRENATAL VITAMINS W/ FOLIC ACID TABLET (FP) PO SCH (10:16)
[2023-06-06] MEDS: BUPRENORPHINE HCL 150 MCG, BUPRENORPHINE HCL 75 MCG BC ONE ×2 (11:08→11:16)
[2023-06-06] MEDS: cloNIDine HCL 0.1 MG TABLET PO ONE (11:09)
[2023-06-06] MEDS: cloNIDine HCL 0.1 MG TABLET PO PRN (11:16)
[2023-06-06] MEDS ORDERED: cloNIDine HCL 0.1 MG TABLET PO PRN (12:11)
[2023-06-06] MEDS: BISMUTH SUBSALICYLATE 524 MG/30 ML PO PRN (13:06)
[2023-06-06 13:45] LABS: HEMATOCRIT 40.6 % (35.4-49); HEMOGLOBIN 13.7 GM/dL (11.7-16.9); MCH 28.4 pg (25.7-33.7); MCHC 33.8 g/dl (32.0-35.9); MEAN CELL VOLUME 84.2 fl (80-96); MEAN PLT VOLUME 9.5 fl (7.5-11.1); PLATELET COUNT 392 10^3/uL (134-434); RBC 4.82 M/mm3 (4.00-5.60); RDW 16.7 % (11.9-15.9); WHITE BLOOD COUNT 12.9 K/mm3 (4.0-10.0)
[2023-06-06 14:02] LABS: POTASSIUM 4.5 mmol/L (3.5-5.1)
[2023-06-06 14:04] LABS: CALCIUM 9.6 mg/dL (8.5-10.1)
[2023-06-06 14:05] LABS: ALBUMIN 3.8 g/dl (3.4-5.0); BLOOD UREA NITROGEN 29.7 mg/dL (7-18)
[2023-06-06 14:08] LABS: CREATININE 1.6 mg/dL (0.55-1.3)
[2023-06-06 14:09] LABS: BILIRUBIN,TOTAL 0.4 mg/dL (0.2-1); TOT PROT 7.6 g/dl (6.4-8.2)
[2023-06-06] MEDS: MIRTAZAPINE 15 MG TABLET (FP) PO SCH (21:50)
[2023-06-06] MEDS: diazePAM 5 MG TABLET PO PRN (21:51)
[2023-06-07] MEDS ORDERED: BUPRENORPHINE HCL 150 MCG, BUPRENORPHINE HCL 75 MCG BC PRN
[2023-06-07] MEDS: BUPRENORPHINE HCL 150 MCG, BUPRENORPHINE HCL 75 MCG BC SCH (05:25)
[2023-06-07] MEDS: BENZONATATE 200 MG CAPSULE PO PRN (17:35)
[2023-06-08] MEDS: BUPRENORPHINE HCL 450 MCG FILM BC SCH (06:17)
[2023-06-08 11:16] LABS: BASO % 0.9 % (0-2.0); EOS % 2.8 % (0-4.5); HEMATOCRIT 40.6 % (35.4-49); HEMOGLOBIN 13.3 GM/dL (11.7-16.9); LYMPH % 26.6 % (8-40); MCH 28.2 pg (25.7-33.7); MCHC 32.7 g/dl (32.0-35.9); MEAN CELL VOLUME 86.1 fl (80-96); MEAN PLT VOLUME 9.4 fl (7.5-11.1); MONO % 6.3 % (3.8-10.2); NEUT % 63.4 % (42.8-82.8); PLATELET COUNT 337 10^3/uL (134-434); POTASSIUM 4.3 mmol/L (3.5-5.1); RBC 4.71 M/mm3 (4.00-5.60); RDW 17.1 % (11.9-15.9)
[2023-06-08 11:26] LABS: BLOOD UREA NITROGEN 21.8 mg/dL (7-18); CALCIUM 9.1 mg/dL (8.5-10.1)
[2023-06-08 11:29] LABS: CREATININE 1.4 mg/dL (0.55-1.3)
[2023-06-08] MEDS: MAG HYDROX/AL HYDROX/SIMETH 30 ML UNIT-DOSE CUP PO PRN (13:10)
[2023-06-09] MEDS: MELATONIN 5 MG TABLETS PO ONE (01:44)
[2023-06-09] MEDS: BUPRENORPHINE/NALOXONE 4 MG/1 MG FILM PACKET SL SCH (06:05)
[2023-06-10] MEDS: BUPRENORPHINE/NALOXONE 8 MG/2 MG FILM PACKET SL ONE (05:59)
[2023-06-10 09:14] VITALS: RESP 16
[2023-06-10 13:12] VITALS: BP 155/75; PULSE 74; TEMP 97.3
[2023-06-10 15:04] LABS: PH,URINE 5.5 (5.0-8.0); URINE APPEARANCE CLEAR; URINE BILIRUBIN NEGATIVE (NEGATIVE); URINE COLOR YELLOW; URINE GLUCOSE (UA) NEGATIVE (NEGATIVE); URINE KETONE NEGATIVE (NEGATIVE); URINE LEUK ESTERASE NEGATIVE (NEGATIVE); URINE NITRITE NEGATIVE (NEGATIVE); URINE PROTEIN NEGATIVE (NEGATIVE); URINE UROBILINOGEN 0.2 mg/dL (0.2-1.0)
== END 2023-06-10 14:57 | disposition home or self-care (01) | DRG 897 ==
LOC: YASAS 13:02 → Y3N 20:05
PROVIDERS: ADMIT Allergy & Immunology; ATTEND Surgery
PROC: HZ2ZZZZ Detoxification Services for Substance Abuse Treatment (ICD-10-PCS; principal; 2023-06-05)
DX: F11.23 Opioid dependence with withdrawal (principal); F19.282 Other psychoactive substance dependence with psychoactive substance-induced sleep disorder; F19.280 Other psychoactive substance dependence with psychoactive substance-induced anxiety disorder; F19.24 Other psychoactive substance dependence with psychoactive substance-induced mood disorder; F17.210 Nicotine dependence, cigarettes, uncomplicated; F41.9 Anxiety disorder, unspecified; F32.A Depression, unspecified; E78.00 Pure hypercholesterolemia, unspecified; I11.0 Hypertensive heart disease with heart failure; I50.9 Heart failure, unspecified; J45.20 Mild intermittent asthma, uncomplicated; J44.9 Chronic obstructive pulmonary disease, unspecified; E11.9 Type 2 diabetes mellitus without complications
CPT/HCPCS: 36415; 80048; 80053; 81003; 82962; 85025; 85027; 86780; 87635; 87811; 93005; 93010

== ENCOUNTER 2023-06-26 15:18 | Inpatient (IN) | payer OTHER ==
[2023-06-26 16:10] LABS: VENOUS O2 SATURATION 65.6 % (70-80); VENOUS PCO2 34.4 mmHg (38-52); VENOUS PH 7.417 (7.310-7.410)
[2023-06-26 16:11] LABS: BASO % 0.8 % (0-2.0); EOS % 0.3 % (0-4.5); HEMOGLOBIN 14.9 GM/dL (11.7-16.9); LYMPH % 11.5 % (8-40); MCH 27.8 pg (25.7-33.7); MEAN CELL VOLUME 84.3 fl (80-96); MEAN PLT VOLUME 8.6 fl (7.5-11.1); MONO % 3.7 % (3.8-10.2); NEUT % 83.7 % (42.8-82.8); PLATELET COUNT 376 10^3/uL (134-434); RBC 5.34 M/mm3 (4.00-5.60); RDW 16.6 % (11.9-15.9)
[2023-06-26 16:40] LABS: POTASSIUM 5.2 mmol/L (3.5-5.1)
[2023-06-26 16:42] LABS: ALBUMIN 3.9 g/dl (3.4-5.0); BLOOD UREA NITROGEN 20.3 mg/dL (7-18)
[2023-06-26 16:43] LABS: MAGNESIUM 2.1 mg/dL (1.8-2.4)
[2023-06-26 16:46] LABS: CREATININE 1.2 mg/dL (0.55-1.3)
[2023-06-26 16:47] LABS: BILIRUBIN,TOTAL 0.6 mg/dL (0.2-1)
[2023-06-26 16:48] LABS: TOT PROT 8.1 g/dl (6.4-8.2)
[2023-06-26 16:51] LABS: N-TERMINAL BNP 6545.9 pg/ml (5-450)
[2023-06-26 16:57] LABS: CALCIUM 8.8 mg/dL (8.5-10.1)
[2023-06-26] MEDS ORDERED: ALBUTEROL SO4 2.5/IPRATROPIUM 0.5 INH SOL 3 ML VIAL.NEB. NEB ONE (17:09)
[2023-06-26] MEDS ORDERED: methylPREDNISolone NA SUCC 125 MG/2 ML VIAL ONE (17:09)
[2023-06-26] MEDS: methylPREDNISolone NA SUCC 125 MG/2 ML VIAL IVPB ONE (17:34)
[2023-06-26] MEDS: ALBUTEROL SO4 2.5/IPRATROPIUM 0.5 INH SOL 3 ML VIAL.NEB. NEB SCH (17:34)
[2023-06-26] MEDS ORDERED: ACETAMINOPHEN 325 MG TABLET (FP) PO PRN (21:22)
[2023-06-26] MEDS ORDERED: FUROSEMIDE 40 MG/4 ML INJECTABLE VIAL ONE (22:50)
[2023-06-26] MEDS ORDERED: HEPARIN NA (PORCINE) 5,000 UNITS/ML 1ML VIAL ONE (22:50)
[2023-06-26] MEDS: HEPARIN NA (PORCINE) 5,000 UNITS/ML 1ML VIAL SQ SCH (23:03)
[2023-06-26] MEDS: FUROSEMIDE 40 MG/4 ML INJECTABLE VIAL IVPUSH ONE (23:03)
[2023-06-26] MEDS: BUDESONIDE/FORMETEROL FUMARATE 80/4.5 mcg INHALER IH SCH (23:45)
[2023-06-27] MEDS ORDERED: MELATONIN 5 MG TABLETS PO PRN (00:16)
[2023-06-27] MEDS: INSULIN ASPART SLIDING SCALE (NOVOLOG) 1 VIAL SQ SCH (01:57)
[2023-06-27] MEDS: NIFEdipine E.R 60 MG TABLET PO ONE (01:59)
[2023-06-27 02:24] VITALS: BMI 22.7
[2023-06-27] MEDS ORDERED: methylPREDNISolone NA SUCC 40 MG/1 ML VIAL IVPUSH SCH (03:00)
[2023-06-27] MEDS: FUROSEMIDE 40 MG/4 ML INJECTABLE VIAL IVPUSH SCH (05:31)
[2023-06-27] MEDS ORDERED: FUROSEMIDE 40 MG/4 ML INJECTABLE VIAL IVPUSH SCH (06:00)
[2023-06-27] MEDS ORDERED: INSULIN (NOVOLOG) ASPART 100 UNITS/ML 10ML VIAL ONE ×2 (06:54→16:43)
[2023-06-27] MEDS ORDERED: SACUBITRIL/VALSARTAN 24 MG-26 MG TABLET PO SCH ×2 (07:34→10:00)
[2023-06-27] MEDS: BUPRENORPHINE/NALOXONE 4 MG/1 MG FILM PACKET SL ONE (07:35)
[2023-06-27] MEDS: ALBUTEROL SO4 2.5/IPRATROPIUM 0.5 INH SOL 3 ML VIAL.NEB. NEB SCH (07:52)
[2023-06-27 08:14] LABS: POTASSIUM 3.5 mmol/L (3.5-5.1)
[2023-06-27 08:17] LABS: BLOOD UREA NITROGEN 23.4 mg/dL (7-18); MAGNESIUM 1.8 mg/dL (1.8-2.4)
[2023-06-27 08:20] LABS: CREATININE 1.5 mg/dL (0.55-1.3); PHOSPHOROUS 2.6 mg/dL (2.5-4.9)
[2023-06-27 08:21] LABS: BILIRUBIN,TOTAL 0.5 mg/dL (0.2-1); TOT PROT 8.6 g/dl (6.4-8.2)
[2023-06-27] MEDS: BUPRENORPHINE/NALOXONE 2 MG/0.5 MG FILM PACKET SL ONE (08:45)
[2023-06-27 09:08] LABS: HEMATOCRIT 44.3 % (35.4-49); HEMOGLOBIN 14.9 GM/dL (11.7-16.9); MCHC 33.6 g/dl (32.0-35.9); MEAN CELL VOLUME 83.2 fl (80-96); MEAN PLT VOLUME 9.2 fl (7.5-11.1); PLATELET COUNT 370 10^3/uL (134-434); RBC 5.32 M/mm3 (4.00-5.60); RDW 16.4 % (11.9-15.9); WHITE BLOOD COUNT 20.2 K/mm3 (4.0-10.0)
[2023-06-27] MEDS: methylPREDNISolone NA SUCC 40 MG/1 ML VIAL IVPB SCH (09:20)
[2023-06-27] MEDS: BUPRENORPHINE/NALOXONE 2 MG/0.5 MG FILM PACKET SL SCH (09:20)
[2023-06-27] MEDS: SACUBITRIL/VALSARTAN 24 MG-26 MG TABLET PO SCH (09:21)
[2023-06-27] MEDS: AZITHROMYCIN 250 MG TABLET PO SCH (09:21)
[2023-06-27] MEDS: NICOTINE 7 MG/24 HOURS TOPICAL PATCH TD SCH (09:22)
[2023-06-27] MEDS: CARVEDILOL 6.25 MG TABLET (FP) PO SCH (09:33)
[2023-06-27] MEDS ORDERED: NIFEdipine E.R 60 MG TABLET PO SCH (10:00)
[2023-06-27] MEDS: VANCOMYCIN ORAL SOLUTION 125 MG/2.5 ML PO SCH (17:42)
[2023-06-27] MEDS ORDERED: VANCOMYCIN ORAL SOLUTION 125 MG/2.5 ML PO SCH (18:00)
[2023-06-27 20:34] LABS: METHADONE, UR NEGATIVE (NEGATIVE); PHENCYCLIDINE,URINE NEGATIVE (NEGATIVE); URINE AMPHETAMINES NEGATIVE (NEGATIVE)
[2023-06-27 20:35] LABS: COCAINE, UR NEGATIVE (NEGATIVE); URINE BARBITURATES NEGATIVE (NEGATIVE)
[2023-06-27 20:46] LABS: OPIATES, URI POSITIVE (NEGATIVE); URINE BENZODIAZEPINES POSITIVE (NEGATIVE)
[2023-06-27] MEDS: ATORVASTATIN CA 40 MG TABLET (FP) PO SCH (22:09)
[2023-06-27] MEDS: MELATONIN 5 MG TABLETS PO PRN (22:22)
[2023-06-27] MEDS: MAG HYDROX/AL HYDROX/SIMETH 30 ML UNIT-DOSE CUP PO ONE (22:22)
[2023-06-28] MEDS: VANCOMYCIN 250 MG/5 ML ORAL SOLUTION PO SCH (00:50)
[2023-06-28 07:46] LABS: HEMATOCRIT 42.6 % (35.4-49); HEMOGLOBIN 14.2 GM/dL (11.7-16.9); MCH 27.7 pg (25.7-33.7); MCHC 33.2 g/dl (32.0-35.9); MEAN CELL VOLUME 83.3 fl (80-96); MEAN PLT VOLUME 9.3 fl (7.5-11.1); PLATELET COUNT 338 10^3/uL (134-434); RBC 5.12 M/mm3 (4.00-5.60); RDW 16.6 % (11.9-15.9); WHITE BLOOD COUNT 20.3 K/mm3 (4.0-10.0)
[2023-06-28 07:56] LABS: POTASSIUM 4.3 mmol/L (3.5-5.1)
[2023-06-28 07:59] LABS: ALBUMIN 3.8 g/dl (3.4-5.0); BLOOD UREA NITROGEN 38.9 mg/dL (7-18); CALCIUM 8.8 mg/dL (8.5-10.1); MAGNESIUM 1.9 mg/dL (1.8-2.4)
[2023-06-28 08:02] LABS: CREATININE 1.5 mg/dL (0.55-1.3)
[2023-06-28 08:04] LABS: BILIRUBIN,TOTAL 0.4 mg/dL (0.2-1); TOT PROT 7.2 g/dl (6.4-8.2)
[2023-06-28 11:21] LABS: ANISOCYTOSIS 0; HELMET CELLS 0; HOWELL-JOLLY BODIES 0; MACROCYTOSIS 0; OVALOCYTE 0; ROULEAU 0; SICKELED CELLS 0; TARGET CELLS 0; TEAR DROP CELLS 0; TOXIC GRANULATION 0
[2023-06-28 15:47] VITALS: RESP 18
[2023-06-29 08:54] LABS: BASO % 0.2 % (0-2.0); HEMATOCRIT 43.1 % (35.4-49); HEMOGLOBIN 14.6 GM/dL (11.7-16.9); LYMPH % 11.8 % (8-40); MCH 28.1 pg (25.7-33.7); MCHC 33.8 g/dl (32.0-35.9); MEAN PLT VOLUME 9.2 fl (7.5-11.1); MONO % 6.6 % (3.8-10.2); NEUT % 81.4 % (42.8-82.8); PLATELET COUNT 288 10^3/uL (134-434); RBC 5.19 M/mm3 (4.00-5.60); RDW 17.1 % (11.9-15.9); WHITE BLOOD COUNT 18.3 K/mm3 (4.0-10.0)
[2023-06-29 09:09] LABS: POTASSIUM 4.2 mmol/L (3.5-5.1)
[2023-06-29 09:17] LABS: CALCIUM 8.9 mg/dL (8.5-10.1)
[2023-06-29 09:18] LABS: ALBUMIN 3.3 g/dl (3.4-5.0); BLOOD UREA NITROGEN 43.6 mg/dL (7-18); MAGNESIUM 2.2 mg/dL (1.8-2.4)
[2023-06-29 09:20] LABS: CREATININE 1.3 mg/dL (0.55-1.3)
[2023-06-29 09:22] LABS: BILIRUBIN,TOTAL 0.4 mg/dL (0.2-1); TOT PROT 6.5 g/dl (6.4-8.2)
[2023-06-29] MEDS ORDERED: methylPREDNISolone NA SUCC 40 MG/1 ML VIAL IVPB SCH (10:00)
[2023-06-29] MEDS ORDERED: INSULIN (NOVOLOG) ASPART 100 UNITS/ML 10ML VIAL ONE (11:33)
[2023-06-29] MEDS ORDERED: predniSONE 20 MG TABLET (UD) PO SCH (12:21)
[2023-06-29] MEDS: predniSONE 20 MG TABLET (UD) PO SCH ×2 (13:57→14:13)
[2023-06-29 15:19] VITALS: BP 124/94; PULSE 76; TEMP 98.4
== END 2023-06-29 17:45 | disposition home health service (06) | DRG 191 ==
LOC: JER 15:18 → OBSVTOIN 20:17 → JERBED 20:17 → J7W 06-27 00:20
PROVIDERS: ADMIT Internal Medicine; ATTEND Internal Medicine
DX: J44.1 Chronic obstructive pulmonary disease with (acute) exacerbation (principal); A04.72 Enterocolitis due to Clostridium difficile, not specified as recurrent; F11.20 Opioid dependence, uncomplicated; I13.0 Hypertensive heart and chronic kidney disease with heart failure and stage 1 through stage 4 chronic kidney disease, or unspecified chronic kidney disease; F41.9 Anxiety disorder, unspecified; E78.5 Hyperlipidemia, unspecified; N18.30 Chronic kidney disease, stage 3 unspecified; E11.22 Type 2 diabetes mellitus with diabetic chronic kidney disease; F32.A Depression, unspecified; I50.9 Heart failure, unspecified
CPT/HCPCS: 0241U-QW; 36415; 71045-TC-FY; 80053; 80307; 82272; 82803; 82962; 83036; 83735; 83880; 84100; 84484; 85025; 85027; 87045; 87046; 87324; 87425; 87449; 87493; 87798; 93005; 93010; 94640; 99285-25; J1644

== ENCOUNTER 2023-07-07 15:37 | Inpatient (IN) | payer OTHER ==
[2023-07-07] MEDS ORDERED: ACETAMINOPHEN INJECTION 100 ML IVPB ONE (16:57)
[2023-07-07] MEDS: ACETAMINOPHEN 1000 MG/100 ML BAG IVPB ONE (17:06)
[2023-07-07 17:11] LABS: BASO % 0.3 % (0-2.0); EOS % 1.1 % (0-4.5); HEMATOCRIT 38.3 % (35.4-49); HEMOGLOBIN 12.5 GM/dL (11.7-16.9); LYMPH % 5.9 % (8-40); MCH 27.5 pg (25.7-33.7); MCHC 32.7 g/dl (32.0-35.9); MEAN PLT VOLUME 8.5 fl (7.5-11.1); MONO % 5.4 % (3.8-10.2); NEUT % 87.3 % (42.8-82.8); PLATELET COUNT 345 10^3/uL (134-434); RBC 4.56 M/mm3 (4.00-5.60); RDW 17.2 % (11.9-15.9); WHITE BLOOD COUNT 19.4 K/mm3 (4.0-10.0)
[2023-07-07 17:22] LABS: INR 1.05 (0.83-1.09); PROTHROMBIN TIME (PATIENT) 12.2 SEC (9.7-13.0)
[2023-07-07 17:25] LABS: ACTIVATED PTT 25.8 SECONDS (25.2-36.5)
[2023-07-07 17:35] LABS: POTASSIUM 4.4 mmol/L (3.5-5.1)
[2023-07-07 17:37] LABS: CALCIUM 9.1 mg/dL (8.5-10.1)
[2023-07-07 17:38] LABS: ALBUMIN 3.1 g/dl (3.4-5.0); BLOOD UREA NITROGEN 23.7 mg/dL (7-18)
[2023-07-07 17:41] LABS: CREATININE 1.4 mg/dL (0.55-1.3)
[2023-07-07 17:42] LABS: BILIRUBIN,TOTAL 0.8 mg/dL (0.2-1); TOT PROT 6.6 g/dl (6.4-8.2)
[2023-07-07 17:45] LABS: N-TERMINAL BNP 4533.6 pg/ml (5-450)
[2023-07-07] MEDS ORDERED: PIPERACILLIN/TAZOB 4.5 GM 4.5 GM/100 ML BAG IVPB ONE (18:49)
[2023-07-07] MEDS ORDERED: VANCOMYCIN 1 GRAM (PRE-DOCKED) 1,000 MG/250 ML BAG IVPB ONE ×2 (18:50→18:56)
[2023-07-07] MEDS: PIPERACILLIN/TAZOB 4.5 GM 4.5 GM in DEXTROSE 5%-WATER 100 ML IVPB ONE (19:04)
[2023-07-07] MEDS: VANCOMYCIN 1,000 MG in DEXTROSE 5%-WATER - 250 ML IVPB ONE (19:30)
[2023-07-08] MEDS ORDERED: PIPERACILLIN/TAZOB 3.375 GM 3.375 GM/50 ML BAG IVPB ONE ×3 (03:24→20:28)
[2023-07-08] MEDS: MELATONIN 5 MG TABLETS PO PRN (03:40)
[2023-07-08] MEDS: PIPERACILLIN/TAZOB 3.375 GM 3.375 GM in DEXTROSE 5%-WATER - 50 ML IVPB SCH ×2 (03:40→20:39)
[2023-07-08] MEDS ORDERED: ALBUTEROL SO4 HFA INHALER IH PRN (04:07)
[2023-07-08] MEDS: HEPARIN NA (PORCINE) 5,000 UNITS/ML 1ML VIAL SQ SCH (06:32)
[2023-07-08] MEDS: VANCOMYCIN ORAL SOLUTION 125 MG/2.5 ML PO SCH (06:32)
[2023-07-08 07:26] LABS: BASO % 0.3 % (0-2.0); EOS % 1.5 % (0-4.5); HEMATOCRIT 38.3 % (35.4-49); HEMOGLOBIN 12.8 GM/dL (11.7-16.9); LYMPH % 5.9 % (8-40); MCH 27.9 pg (25.7-33.7); MCHC 33.4 g/dl (32.0-35.9); MEAN CELL VOLUME 83.5 fl (80-96); MEAN PLT VOLUME 8.6 fl (7.5-11.1); MONO % 5.1 % (3.8-10.2); NEUT % 87.2 % (42.8-82.8); PLATELET COUNT 356 10^3/uL (134-434); RBC 4.58 M/mm3 (4.00-5.60); RDW 17.1 % (11.9-15.9); WHITE BLOOD COUNT 18.9 K/mm3 (4.0-10.0)
[2023-07-08 07:43] LABS: POTASSIUM 4.3 mmol/L (3.5-5.1)
[2023-07-08] MEDS: INSULIN ASPART SLIDING SCALE (NOVOLOG) 1 VIAL SQ SCH (07:44)
[2023-07-08 07:54] LABS: ALBUMIN 3.2 g/dl (3.4-5.0); BLOOD UREA NITROGEN 23.7 mg/dL (7-18); CREATININE 1.6 mg/dL (0.55-1.3)
[2023-07-08 07:55] LABS: BILIRUBIN,TOTAL 0.9 mg/dL (0.2-1); CALCIUM 9.1 mg/dL (8.5-10.1); TOT PROT 6.8 g/dl (6.4-8.2)
[2023-07-08 07:56] LABS: MAGNESIUM 1.9 mg/dL (1.8-2.4)
[2023-07-08] MEDS ORDERED: SPIRONOLACTONE 25 MG TABLET ONE (10:13)
[2023-07-08] MEDS ORDERED: NIFEdipine E.R 60 MG TABLET PO ONE (10:14)
[2023-07-08] MEDS: FLUTICASONE/UMECLIDIN/VILANTER(100-62.5-25 TRELEGY ELLIPTA) INAHLER IH SCH (10:22)
[2023-07-08] MEDS: SPIRONOLACTONE 25 MG TABLET PO SCH (10:22)
[2023-07-08] MEDS: FINASTERIDE 5 MG TABLET (FP) PO SCH (10:22)
[2023-07-08] MEDS: NIFEdipine E.R 60 MG TABLET PO SCH (10:22)
[2023-07-08] MEDS ORDERED: HEPARIN NA (PORCINE) 5,000 UNITS/ML 1ML VIAL ONE (13:50)
[2023-07-08] MEDS: methylPREDNISolone NA SUCC 40 MG/1 ML VIAL IVPUSH SCH (13:55)
[2023-07-08] MEDS ORDERED: METOPROLOL TARTRATE 5 MG/5 ML VIAL IVPUSH PRN (14:44)
[2023-07-08] MEDS ORDERED: ALBUTEROL SO4 2.5/IPRATROPIUM 0.5 INH SOL 3 ML VIAL.NEB. NEB ONE (15:20)
[2023-07-08] MEDS: ALBUTEROL SO4 2.5/IPRATROPIUM 0.5 INH SOL 3 ML VIAL.NEB. NEB SCH (15:20)
[2023-07-08] MEDS ORDERED: VANCOMYCIN ORAL SOLUTION 125 MG/2.5 ML PO ONE (19:13)
[2023-07-08] MEDS: SACUBITRIL/VALSARTAN 24 MG-26 MG TABLET PO SCH ×2 (22:26→22:48)
[2023-07-08] MEDS: traZODone HCL 50 MG TABLET (FP) PO SCH (22:47)
[2023-07-08] MEDS: ATORVASTATIN CA 40 MG TABLET (FP) PO SCH (22:47)
[2023-07-08] MEDS: QUEtiapine FUMARATE 25 MG TABLET PO SCH (22:48)
[2023-07-08] MEDS ORDERED: INSULIN (NOVOLOG) ASPART 100 UNITS/ML 10ML VIAL ONE (23:04)
[2023-07-09] MEDS ORDERED: PIPERACILLIN/TAZOB 3.375 GM 3.375 GM in DEXTROSE 5%-WATER - 50 ML IVPB SCH (02:00)
[2023-07-09] MEDS ORDERED: PIPERACILLIN/TAZOBACTAM 3.375 GM VIAL IVPB ONE (04:38)
[2023-07-09 09:11] LABS: HEMATOCRIT 41.9 % (35.4-49); HEMOGLOBIN 13.9 GM/dL (11.7-16.9); MCH 27.8 pg (25.7-33.7); MCHC 33.1 g/dl (32.0-35.9); MEAN CELL VOLUME 83.9 fl (80-96); MEAN PLT VOLUME 8.1 fl (7.5-11.1); PLATELET COUNT 401 10^3/uL (134-434); RBC 4.99 M/mm3 (4.00-5.60); RDW 17.1 % (11.9-15.9); WHITE BLOOD COUNT 22.9 K/mm3 (4.0-10.0)
[2023-07-09 09:37] LABS: ANISOCYTOSIS 0; MACROCYTOSIS 0; POTASSIUM 4.1 mmol/L (3.5-5.1)
[2023-07-09 09:41] LABS: ALBUMIN 3.7 g/dl (3.4-5.0); CALCIUM 10.1 mg/dL (8.5-10.1)
[2023-07-09 09:44] LABS: CREATININE 1.7 mg/dL (0.55-1.3)
[2023-07-09 09:45] LABS: BILIRUBIN,TOTAL 0.5 mg/dL (0.2-1); TOT PROT 8.1 g/dl (6.4-8.2)
[2023-07-09 13:22] VITALS: BMI 21.7
[2023-07-09] MEDS: SODIUM CHLORIDE NASAL SPRAY 44 ML BOTTLE NS SCH (17:10)
[2023-07-09] MEDS: VANCOMYCIN ORAL SOLUTION 125 MG/2.5 ML PO SCH (17:12)
[2023-07-09 21:26] LABS: PH,URINE 5.5 (5.0-8.0); URINE APPEARANCE CLOUDY; URINE BILIRUBIN NEGATIVE (NEGATIVE); URINE COLOR YELLOW; URINE GLUCOSE (UA) NEGATIVE (NEGATIVE); URINE KETONE NEGATIVE (NEGATIVE); URINE LEUK ESTERASE NEGATIVE (NEGATIVE); URINE NITRITE NEGATIVE (NEGATIVE); URINE PROTEIN TRACE (NEGATIVE); URINE UROBILINOGEN 0.2 mg/dL (0.2-1.0)
[2023-07-10 09:10] LABS: BASO % 0.3 % (0-2.0); EOS % 0.1 % (0-4.5); HEMATOCRIT 38.9 % (35.4-49); HEMOGLOBIN 13.2 GM/dL (11.7-16.9); MCH 28.3 pg (25.7-33.7); MCHC 33.9 g/dl (32.0-35.9); MEAN CELL VOLUME 83.5 fl (80-96); MEAN PLT VOLUME 8.4 fl (7.5-11.1); MONO % 4.5 % (3.8-10.2); NEUT % 84.1 % (42.8-82.8); PLATELET COUNT 341 10^3/uL (134-434); RBC 4.65 M/mm3 (4.00-5.60); RDW 17.5 % (11.9-15.9); WHITE BLOOD COUNT 16.2 K/mm3 (4.0-10.0)
[2023-07-10 09:48] LABS: POTASSIUM 3.9 mmol/L (3.5-5.1)
[2023-07-10 10:01] LABS: ALBUMIN 3.2 g/dl (3.4-5.0)
[2023-07-10 10:02] LABS: BLOOD UREA NITROGEN 28.9 mg/dL (7-18); CREATININE 1.5 mg/dL (0.55-1.3)
[2023-07-10 10:04] LABS: BILIRUBIN,TOTAL 0.4 mg/dL (0.2-1); TOT PROT 6.8 g/dl (6.4-8.2)
[2023-07-10] MEDS ORDERED: BUPRENORPHINE/NALOXONE 4 MG/1 MG FILM PACKET SL SCH (11:45)
[2023-07-10 11:49] LABS: PH,URINE 5.5 (5.0-8.0); URINE APPEARANCE CLEAR; URINE BILIRUBIN NEGATIVE (NEGATIVE); URINE COLOR YELLOW; URINE GLUCOSE (UA) NEGATIVE (NEGATIVE); URINE KETONE NEGATIVE (NEGATIVE); URINE LEUK ESTERASE NEGATIVE (NEGATIVE); URINE NITRITE NEGATIVE (NEGATIVE); URINE PROTEIN TRACE (NEGATIVE); URINE UROBILINOGEN 0.2 mg/dL (0.2-1.0)
[2023-07-10 12:12] LABS: COCAINE, UR NEGATIVE (NEGATIVE); METHADONE, UR NEGATIVE (NEGATIVE); PHENCYCLIDINE,URINE NEGATIVE (NEGATIVE); URINE BENZODIAZEPINES NEGATIVE (NEGATIVE)
[2023-07-10 12:13] LABS: OPIATES, URI NEGATIVE (NEGATIVE); URINE BARBITURATES NEGATIVE (NEGATIVE)
[2023-07-10] MEDS ORDERED: BUPRENORPHINE/NALOXONE 2 MG/0.5 MG FILM PACKET SL SCH (12:15)
[2023-07-10 12:35] LABS: URINE AMPHETAMINES NEGATIVE (NEGATIVE)
[2023-07-10] MEDS: CARVEDILOL 6.25 MG TABLET (FP) PO SCH (12:54)
[2023-07-11 08:05] LABS: BASO % 0.6 % (0-2.0); EOS % 0.1 % (0-4.5); HEMATOCRIT 40.3 % (35.4-49); HEMOGLOBIN 13.5 GM/dL (11.7-16.9); LYMPH % 14.9 % (8-40); MCH 27.9 pg (25.7-33.7); MCHC 33.5 g/dl (32.0-35.9); MEAN CELL VOLUME 83.4 fl (80-96); MEAN PLT VOLUME 8.1 fl (7.5-11.1); MONO % 4.9 % (3.8-10.2); NEUT % 79.5 % (42.8-82.8); PLATELET COUNT 384 10^3/uL (134-434); RBC 4.83 M/mm3 (4.00-5.60); RDW 17.4 % (11.9-15.9)
[2023-07-11 08:25] LABS: POTASSIUM 4.1 mmol/L (3.5-5.1)
[2023-07-11 08:31] LABS: CALCIUM 9.5 mg/dL (8.5-10.1)
[2023-07-11 08:32] LABS: ALBUMIN 3.4 g/dl (3.4-5.0); BLOOD UREA NITROGEN 35.6 mg/dL (7-18)
[2023-07-11 08:35] LABS: CREATININE 1.5 mg/dL (0.55-1.3)
[2023-07-11 08:37] LABS: BILIRUBIN,TOTAL 0.5 mg/dL (0.2-1); TOT PROT 7.3 g/dl (6.4-8.2)
[2023-07-11] MEDS ORDERED: INSULIN (NOVOLOG) ASPART 100 UNITS/ML 10ML VIAL ONE (18:10)
[2023-07-12] MEDS: MELATONIN 5 MG TABLETS PO ONE (00:03)
[2023-07-12 08:56] LABS: BASO % 0.3 % (0-2.0); EOS % 0.1 % (0-4.5); HEMATOCRIT 41.5 % (35.4-49); HEMOGLOBIN 13.6 GM/dL (11.7-16.9); LYMPH % 13.8 % (8-40); MCH 27.4 pg (25.7-33.7); MCHC 32.8 g/dl (32.0-35.9); MEAN CELL VOLUME 83.5 fl (80-96); MEAN PLT VOLUME 8.4 fl (7.5-11.1); MONO % 4.3 % (3.8-10.2); NEUT % 81.5 % (42.8-82.8); PLATELET COUNT 340 10^3/uL (134-434); RBC 4.96 M/mm3 (4.00-5.60); RDW 16.7 % (11.9-15.9); WHITE BLOOD COUNT 15.2 K/mm3 (4.0-10.0)
[2023-07-12 09:10] LABS: POTASSIUM 4.1 mmol/L (3.5-5.1)
[2023-07-12 09:19] LABS: ALBUMIN 3.4 g/dl (3.4-5.0); BLOOD UREA NITROGEN 37.2 mg/dL (7-18); CALCIUM 9.3 mg/dL (8.5-10.1)
[2023-07-12 09:22] LABS: CREATININE 1.6 mg/dL (0.55-1.3)
[2023-07-12 09:24] LABS: BILIRUBIN,TOTAL 0.5 mg/dL (0.2-1)
[2023-07-12] MEDS ORDERED: INSULIN (NOVOLOG) ASPART 100 UNITS/ML 10ML VIAL ONE (17:18)
[2023-07-12 23:12] VITALS: RESP 20
[2023-07-13 05:16] VITALS: BP 137/61; PULSE 70; TEMP 97.5
[2023-07-13 09:23] LABS: BASO % 0.3 % (0-2.0); EOS % 0.2 % (0-4.5); HEMATOCRIT 42.2 % (35.4-49); LYMPH % 17.5 % (8-40); MCH 27.6 pg (25.7-33.7); MCHC 33.2 g/dl (32.0-35.9); MEAN CELL VOLUME 83.3 fl (80-96); MEAN PLT VOLUME 8.4 fl (7.5-11.1); MONO % 4.5 % (3.8-10.2); NEUT % 77.5 % (42.8-82.8); PLATELET COUNT 366 10^3/uL (134-434); RBC 5.06 M/mm3 (4.00-5.60); RDW 17.2 % (11.9-15.9); WHITE BLOOD COUNT 14.3 K/mm3 (4.0-10.0)
[2023-07-13 09:50] LABS: POTASSIUM 4.3 mmol/L (3.5-5.1)
[2023-07-13 09:57] LABS: ALBUMIN 3.3 g/dl (3.4-5.0); CALCIUM 8.8 mg/dL (8.5-10.1)
[2023-07-13 09:58] LABS: BLOOD UREA NITROGEN 39.3 mg/dL (7-18)
[2023-07-13 10:00] LABS: CREATININE 1.7 mg/dL (0.55-1.3)
[2023-07-13 10:02] LABS: BILIRUBIN,TOTAL 0.6 mg/dL (0.2-1); TOT PROT 6.7 g/dl (6.4-8.2)
[2023-07-13] MEDS ORDERED: INSULIN (NOVOLOG) ASPART 100 UNITS/ML 10ML VIAL ONE (11:52)
[2023-07-13] MEDS: predniSONE 20 MG TABLET (UD) PO ONE (12:02)
[2023-07-13] MEDS ORDERED: AMOX TR/POT CLAV 500MG/125MG TABLETS (FP) PO SCH (17:30)
== END 2023-07-13 12:05 | disposition home or self-care (01) | DRG 190 ==
LOC: JER 15:37 → JERBED 20:28 → J8W 07-08 22:19
PROVIDERS: ADMIT Internal Medicine; ATTEND Nurse Practitioner Family
DX: J44.0 Chronic obstructive pulmonary disease with (acute) lower respiratory infection (principal); J18.9 Pneumonia, unspecified organism; I13.0 Hypertensive heart and chronic kidney disease with heart failure and stage 1 through stage 4 chronic kidney disease, or unspecified chronic kidney disease; I50.22 Chronic systolic (congestive) heart failure; N18.32 Chronic kidney disease, stage 3b; E11.22 Type 2 diabetes mellitus with diabetic chronic kidney disease; J44.1 Chronic obstructive pulmonary disease with (acute) exacerbation; E78.00 Pure hypercholesterolemia, unspecified; M06.9 Rheumatoid arthritis, unspecified; N40.0 Benign prostatic hyperplasia without lower urinary tract symptoms; F11.20 Opioid dependence, uncomplicated; F17.210 Nicotine dependence, cigarettes, uncomplicated; F19.10 Other psychoactive substance abuse, uncomplicated
CPT/HCPCS: 0241U-QW; 36415; 71045-TC-FY; 74177-TC; 76775-TC; 80053; 80307; 81003; 82550; 82962; 83605; 83690; 83735; 83880; 84100; 84443; 84484; 85025; 85610; 85730; 86850; 86900; 86901; 87040; 87086; 87899; 93005; 93010; 94640; 99285-25; J0131; J1644; Q9967

== ENCOUNTER 2023-07-30 14:56 | Inpatient (IN) | payer OTHER ==
[2023-07-30 15:59] LABS: BASO % 0.8 % (0-2.0); EOS % 1.3 % (0-4.5); HEMATOCRIT 35.6 % (35.4-49); LYMPH % 13.8 % (8-40); MCH 28.1 pg (25.7-33.7); MCHC 33.7 g/dl (32.0-35.9); MEAN CELL VOLUME 83.4 fl (80-96); MEAN PLT VOLUME 7.7 fl (7.5-11.1); MONO % 7.9 % (3.8-10.2); NEUT % 76.2 % (42.8-82.8); PLATELET COUNT 263 10^3/uL (134-434); RBC 4.27 M/mm3 (4.00-5.60); RDW 17.6 % (11.9-15.9); WHITE BLOOD COUNT 7.8 K/mm3 (4.0-10.0)
[2023-07-30 16:04] LABS: INR 0.96 (0.83-1.09); PROTHROMBIN TIME (PATIENT) 11.1 SEC (9.7-13.0)
[2023-07-30 16:07] LABS: ACTIVATED PTT 24.2 SECONDS (25.2-36.5)
[2023-07-30 16:17] LABS: POTASSIUM 4.8 mmol/L (3.5-5.1)
[2023-07-30 16:18] LABS: BLOOD UREA NITROGEN 17.9 mg/dL (7-18); CALCIUM 8.1 mg/dL (8.5-10.1)
[2023-07-30 16:19] LABS: ALBUMIN 2.7 g/dl (3.4-5.0)
[2023-07-30 16:22] LABS: CREATININE 1.2 mg/dL (0.55-1.3)
[2023-07-30 16:23] LABS: TOT PROT 5.7 g/dl (6.4-8.2)
[2023-07-30 16:24] LABS: BILIRUBIN,TOTAL 0.4 mg/dL (0.2-1)
[2023-07-30 16:27] LABS: N-TERMINAL BNP 13198.5 pg/ml (5-450)
[2023-07-30] MEDS ORDERED: ACETAMINOPHEN INJECTION 100 ML IVPB ONE (17:51)
[2023-07-30] MEDS ORDERED: LIDOCAINE 4% PATCH TP ONE (17:51)
[2023-07-30] MEDS ORDERED: FUROSEMIDE 40 MG/4 ML INJECTABLE VIAL ONE (17:52)
[2023-07-30] MEDS: LIDOCAINE 5% TOPICAL PATCH TP ONE (17:57)
[2023-07-30] MEDS: FUROSEMIDE 40 MG/4 ML INJECTABLE VIAL IVPUSH ONE (17:58)
[2023-07-30] MEDS: ACETAMINOPHEN 1000 MG/100 ML BAG IVPB ONE (17:58)
[2023-07-30] MEDS: NITROGLYCERIN 2% OINTMENT - 1GM PACKET TD ONE (19:04)
[2023-07-30] MEDS: ASPIRIN 81 MG CHEWABLE TABLETS PO ONE ×2 (19:15→19:35)
[2023-07-30] MEDS: CARVEDILOL 6.25 MG TABLET (FP) PO ONE ×2 (19:15→19:35)
[2023-07-30] MEDS: SACUBITRIL/VALSARTAN 49 MG-51 MG TABLET PO ONE ×2 (19:15→19:35)
[2023-07-30] MEDS ORDERED: SACUBITRIL/VALSARTAN 49 MG-51 MG TABLET ONE (19:29)
[2023-07-30] MEDS ORDERED: ASPIRIN 81 MG CHEWABLE TABLETS ONE (19:30)
[2023-07-30] MEDS ORDERED: CARVEDILOL 6.25 MG TABLET (FP) ONE (19:30)
[2023-07-30] MEDS: LIDOCAINE PATCH REMOVAL MC SCH (22:02)
[2023-07-30] MEDS ORDERED: ALBUTEROL SO4 HFA INHALER IH PRN (22:35)
[2023-07-30] MEDS ORDERED: HEPARIN NA (PORCINE) 5,000 UNITS/ML 1ML VIAL ONE (22:43)
[2023-07-30] MEDS: HEPARIN NA (PORCINE) 5,000 UNITS/ML 1ML VIAL SQ SCH (22:46)
[2023-07-30 23:24] LABS: MAGNESIUM 1.9 mg/dL (1.8-2.4)
[2023-07-30 23:27] LABS: PHOSPHOROUS 2.3 mg/dL (2.5-4.9)
[2023-07-31] MEDS ORDERED: NAPH,MB-DB/K PH,MBDB POWDER PACKET ONE (01:40)
[2023-07-31] MEDS: NAPH,MB-DB/K PH,MBDB POWDER PACKET PO ONE (01:44)
[2023-07-31] MEDS ORDERED: HEPARIN NA (PORCINE) 5,000 UNITS/ML 1ML VIAL ONE (06:05)
[2023-07-31 06:29] LABS: CALCIUM 8.5 mg/dL (8.5-10.1)
[2023-07-31 06:30] LABS: ALBUMIN 2.8 g/dl (3.4-5.0); BLOOD UREA NITROGEN 22.4 mg/dL (7-18); MAGNESIUM 1.9 mg/dL (1.8-2.4)
[2023-07-31 06:31] LABS: BASO % 0.9 % (0-2.0); LYMPH % 16.3 % (8-40); MCH 28.1 pg (25.7-33.7); MCHC 33.3 g/dl (32.0-35.9); MEAN CELL VOLUME 84.3 fl (80-96); MEAN PLT VOLUME 7.9 fl (7.5-11.1); MONO % 7.3 % (3.8-10.2); NEUT % 73.5 % (42.8-82.8); PLATELET COUNT 282 10^3/uL (134-434); RBC 4.27 M/mm3 (4.00-5.60); RDW 17.8 % (11.9-15.9); WHITE BLOOD COUNT 9.4 K/mm3 (4.0-10.0)
[2023-07-31 06:33] LABS: CREATININE 1.4 mg/dL (0.55-1.3); PHOSPHOROUS 3.6 mg/dL (2.5-4.9)
[2023-07-31 06:34] LABS: BILIRUBIN,TOTAL 0.4 mg/dL (0.2-1); TOT PROT 5.8 g/dl (6.4-8.2)
[2023-07-31 07:33] LABS: POTASSIUM 4.5 mmol/L (3.5-5.1)
[2023-07-31] MEDS ORDERED: NIFEdipine E.R 60 MG TABLET PO ONE (08:07)
[2023-07-31] MEDS ORDERED: CARVEDILOL 6.25 MG TABLET (FP) ONE (08:07)
[2023-07-31] MEDS ORDERED: NICOTINE 7 MG/24 HOURS TOPICAL PATCH TD ONE (08:07)
[2023-07-31] MEDS ORDERED: FUROSEMIDE 40 MG/4 ML INJECTABLE VIAL ONE (08:08)
[2023-07-31] MEDS ORDERED: TAMSULOSIN HCL 0.4 MG CAP ONE (08:08)
[2023-07-31] MEDS: TAMSULOSIN HCL 0.4 MG CAP PO SCH (08:42)
[2023-07-31] MEDS: FUROSEMIDE 40 MG/4 ML INJECTABLE VIAL IVPUSH ONE (08:42)
[2023-07-31] MEDS: FLUTICASONE/UMECLIDIN/VILANTER(100-62.5-25 TRELEGY ELLIPTA) INAHLER IH SCH (09:00)
[2023-07-31] MEDS: FINASTERIDE 5 MG TABLET (FP) PO SCH (09:00)
[2023-07-31] MEDS: NICOTINE 7 MG/24 HOURS TOPICAL PATCH TD SCH (09:00)
[2023-07-31] MEDS: CARVEDILOL 6.25 MG TABLET (FP) PO SCH (09:00)
[2023-07-31] MEDS: NIFEdipine E.R 60 MG TABLET PO SCH (09:00)
[2023-07-31] MEDS ORDERED: SPIRONOLACTONE 25 MG TABLET PO SCH (10:00)
[2023-07-31] MEDS ORDERED: FUROSEMIDE 40 MG/4 ML INJECTABLE VIAL IVPUSH SCH (10:00)
[2023-07-31 16:22] VITALS: BMI 23.4
[2023-07-31] MEDS ORDERED: ALBUTEROL SO4 HFA INHALER IH PRN (16:22)
[2023-07-31] MEDS ORDERED: SACUBITRIL/VALSARTAN 24 MG-26 MG TABLET PO SCH (19:00)
[2023-07-31] MEDS: CARVEDILOL 12.5 MG TABLET (FP) PO SCH (21:48)
[2023-07-31] MEDS: LIDOCAINE PATCH REMOVAL MC SCH (21:48)
[2023-07-31] MEDS: ATORVASTATIN CA 40 MG TABLET (FP) PO SCH (21:48)
[2023-07-31] MEDS: SACUBITRIL/VALSARTAN 49 MG-51 MG TABLET PO SCH (21:48)
[2023-07-31] MEDS: HEPARIN NA (PORCINE) 5,000 UNITS/ML 1ML VIAL SQ SCH (21:48)
[2023-07-31] MEDS ORDERED: ATORVASTATIN CA 40 MG TABLET (FP) PO SCH (22:00)
[2023-07-31 23:37] VITALS: RESP 18
[2023-08-01 09:21] LABS: HEMOGLOBIN 13.7 GM/dL (11.7-16.9); MCH 27.7 pg (25.7-33.7); MCHC 33.4 g/dl (32.0-35.9); MEAN CELL VOLUME 83.1 fl (80-96); MEAN PLT VOLUME 8.1 fl (7.5-11.1); PLATELET COUNT 287 10^3/uL (134-434); RBC 4.94 M/mm3 (4.00-5.60); RDW 18.1 % (11.9-15.9)
[2023-08-01] MEDS: NICOTINE 7 MG/24 HOURS TOPICAL PATCH TD SCH (09:21)
[2023-08-01] MEDS: FINASTERIDE 5 MG TABLET (FP) PO SCH (09:22)
[2023-08-01] MEDS: FUROSEMIDE 40 MG/4 ML INJECTABLE VIAL IVPUSH SCH (09:22)
[2023-08-01] MEDS: TAMSULOSIN HCL 0.4 MG CAP PO SCH (09:22)
[2023-08-01] MEDS: NIFEdipine E.R 60 MG TABLET PO SCH (09:22)
[2023-08-01] MEDS: FLUTICASONE/UMECLIDIN/VILANTER(100-62.5-25 TRELEGY ELLIPTA) INAHLER IH SCH (09:24)
[2023-08-01 09:27] LABS: POTASSIUM 4.2 mmol/L (3.5-5.1)
[2023-08-01 09:29] LABS: ALBUMIN 3.1 g/dl (3.4-5.0); CALCIUM 8.9 mg/dL (8.5-10.1)
[2023-08-01 09:30] LABS: BLOOD UREA NITROGEN 28.6 mg/dL (7-18); MAGNESIUM 1.9 mg/dL (1.8-2.4)
[2023-08-01 09:32] LABS: CREATININE 1.5 mg/dL (0.55-1.3)
[2023-08-01 09:33] LABS: PHOSPHOROUS 3.4 mg/dL (2.5-4.9)
[2023-08-01 09:34] LABS: BILIRUBIN,TOTAL 0.5 mg/dL (0.2-1); TOT PROT 6.2 g/dl (6.4-8.2)
[2023-08-02 08:56] LABS: BASO % 0.9 % (0-2.0); EOS % 1.8 % (0-4.5); HEMATOCRIT 39.2 % (35.4-49); HEMOGLOBIN 13.1 GM/dL (11.7-16.9); MCHC 33.5 g/dl (32.0-35.9); MEAN CELL VOLUME 83.5 fl (80-96); MEAN PLT VOLUME 7.9 fl (7.5-11.1); NEUT % 73.3 % (42.8-82.8); PLATELET COUNT 250 10^3/uL (134-434); RBC 4.69 M/mm3 (4.00-5.60); RDW 17.9 % (11.9-15.9); WHITE BLOOD COUNT 10.6 K/mm3 (4.0-10.0)
[2023-08-02 09:14] LABS: POTASSIUM 4.1 mmol/L (3.5-5.1)
[2023-08-02 09:24] LABS: CALCIUM 8.5 mg/dL (8.5-10.1)
[2023-08-02 09:25] LABS: ALBUMIN 3.1 g/dl (3.4-5.0)
[2023-08-02 09:28] LABS: CREATININE 1.4 mg/dL (0.55-1.3); PHOSPHOROUS 3.2 mg/dL (2.5-4.9)
[2023-08-02 09:29] LABS: TOT PROT 6.1 g/dl (6.4-8.2)
[2023-08-02 09:30] LABS: BILIRUBIN,TOTAL 0.6 mg/dL (0.2-1)
[2023-08-02] MEDS: FUROSEMIDE 40 MG TABLET (FP) PO SCH ×2 (09:34→17:00)
[2023-08-03 08:55] LABS: BASO % 0.8 % (0-2.0); HEMATOCRIT 41.1 % (35.4-49); HEMOGLOBIN 13.8 GM/dL (11.7-16.9); LYMPH % 20.1 % (8-40); MCH 28.3 pg (25.7-33.7); MCHC 33.5 g/dl (32.0-35.9); MEAN CELL VOLUME 84.4 fl (80-96); MONO % 7.5 % (3.8-10.2); NEUT % 69.6 % (42.8-82.8); PLATELET COUNT 277 10^3/uL (134-434); RBC 4.87 M/mm3 (4.00-5.60); RDW 18.3 % (11.9-15.9); WHITE BLOOD COUNT 10.5 K/mm3 (4.0-10.0)
[2023-08-03 09:07] LABS: POTASSIUM 4.2 mmol/L (3.5-5.1)
[2023-08-03 09:10] LABS: CALCIUM 9.1 mg/dL (8.5-10.1)
[2023-08-03 09:11] LABS: BLOOD UREA NITROGEN 41.3 mg/dL (7-18)
[2023-08-03 09:15] LABS: CREATININE 1.6 mg/dL (0.55-1.3)
[2023-08-03 09:41] VITALS: BP 139/68; PULSE 89; TEMP 98
== END 2023-08-03 13:55 | disposition home or self-care (01) | DRG 291 ==
LOC: JER 14:56 → JERBED 18:10 → UNDOADMOB 18:10 → INTOOBSV 18:11 → OBSVTOIN 18:11 → JERBED 21:57 → OBSVTOIN 21:57 → J8W 07-31 16:07
PROVIDERS: ADMIT Internal Medicine; ATTEND Nurse Practitioner Acute Care
DX: I11.0 Hypertensive heart disease with heart failure (principal); E43 Unspecified severe protein-calorie malnutrition; I50.23 Acute on chronic systolic (congestive) heart failure; F11.20 Opioid dependence, uncomplicated; N17.9 Acute kidney failure, unspecified; J44.9 Chronic obstructive pulmonary disease, unspecified; E78.5 Hyperlipidemia, unspecified; R07.89 Other chest pain; E11.9 Type 2 diabetes mellitus without complications; R74.01 Elevation of levels of liver transaminase levels; F17.200 Nicotine dependence, unspecified, uncomplicated; N28.1 Cyst of kidney, acquired; R19.7 Diarrhea, unspecified; Z68.22 Body mass index [BMI] 22.0-22.9, adult
CPT/HCPCS: 0241U-QW; 36415; 70450-TC; 70486-TC; 71045-TC-FY; 71250-TC; 72125-TC; 74177-TC; 80048; 80053; 83735; 83880; 84100; 84484; 85025; 85027; 85610; 85730; 86713; 87045; 87046; 87324; 87449; 93005; 93010; 99285-25; J0131; J1644; Q9967

== ENCOUNTER 2023-08-07 14:33 | Inpatient (IN) | payer OTHER ==
[2023-08-07 16:08] LABS: VENOUS O2 SATURATION 37.8 % (70-80); VENOUS PCO2 58.9 mmHg (38-52); VENOUS PH 7.248 (7.310-7.410)
[2023-08-07] MEDS: SODIUM CHLORIDE 0.9% 500 ML INFUS.BAG IV ONE (16:09)
[2023-08-07 16:13] LABS: BASO % 0.4 % (0-2.0); EOS % 1.8 % (0-4.5); HEMATOCRIT 36.1 % (35.4-49); HEMOGLOBIN 11.9 GM/dL (11.7-16.9); LYMPH % 11.4 % (8-40); MCH 27.9 pg (25.7-33.7); MCHC 32.8 g/dl (32.0-35.9); MEAN CELL VOLUME 85.1 fl (80-96); MEAN PLT VOLUME 8.2 fl (7.5-11.1); MONO % 6.9 % (3.8-10.2); NEUT % 79.5 % (42.8-82.8); PLATELET COUNT 237 10^3/uL (134-434); RBC 4.24 M/mm3 (4.00-5.60); RDW 17.9 % (11.9-15.9); WHITE BLOOD COUNT 12.4 K/mm3 (4.0-10.0)
[2023-08-07 16:21] LABS: INR 1.04 (0.83-1.09); PROTHROMBIN TIME (PATIENT) 12.1 SEC (9.7-13.0)
[2023-08-07 16:31] LABS: ALBUMIN 3.2 g/dl (3.4-5.0); CALCIUM 8.9 mg/dL (8.5-10.1)
[2023-08-07 16:32] LABS: BLOOD UREA NITROGEN 52.5 mg/dL (7-18)
[2023-08-07 16:35] LABS: CREATININE 2.1 mg/dL (0.55-1.3)
[2023-08-07 16:36] LABS: BILIRUBIN,TOTAL 0.6 mg/dL (0.2-1); TOT PROT 6.4 g/dl (6.4-8.2)
[2023-08-07] MEDS ORDERED: methylPREDNISolone NA SUCC 125 MG/2 ML VIAL ONE (17:03)
[2023-08-07] MEDS: ALBUTEROL SO4 2.5/IPRATROPIUM 0.5 INH SOL 3 ML VIAL.NEB. NEB SCH (17:04)
[2023-08-07] MEDS: methylPREDNISolone NA SUCC 125 MG/2 ML VIAL IVPB ONE (17:04)
[2023-08-07] MEDS ORDERED: ALBUTEROL SO4 2.5/IPRATROPIUM 0.5 INH SOL 3 ML VIAL.NEB. NEB ONE (17:06)
[2023-08-07] MEDS ORDERED: diphenhydrAMINE HCL 25 MG CAPSULE (FP) PO ONE (17:17)
[2023-08-07] MEDS: diphenhydrAMINE HCL 25 MG CAPSULE (FP) PO ONE (17:18)
[2023-08-07 19:44] LABS: URINE APPEARANCE CLEAR; URINE BILIRUBIN NEGATIVE (NEGATIVE); URINE COLOR YELLOW; URINE GLUCOSE (UA) NEGATIVE (NEGATIVE); URINE KETONE NEGATIVE (NEGATIVE); URINE LEUK ESTERASE NEGATIVE (NEGATIVE); URINE NITRITE NEGATIVE (NEGATIVE); URINE PROTEIN NEGATIVE (NEGATIVE); URINE UROBILINOGEN 0.2 mg/dL (0.2-1.0)
[2023-08-07 21:10] VITALS: BMI 23.5
[2023-08-07] MEDS: HEPARIN NA (PORCINE) 5,000 UNITS/ML 1ML VIAL SQ SCH (21:13)
[2023-08-07] MEDS: QUEtiapine FUMARATE 50 MG TABLET PO SCH (21:13)
[2023-08-07] MEDS: traZODone HCL 50 MG TABLET (FP) PO SCH (21:13)
[2023-08-07] MEDS: ATORVASTATIN CA 40 MG TABLET (FP) PO SCH (21:13)
[2023-08-07 21:43] LABS: METHADONE, UR NEGATIVE (NEGATIVE); OPIATES, URI NEGATIVE (NEGATIVE); URINE AMPHETAMINES NEGATIVE (NEGATIVE); URINE BARBITURATES NEGATIVE (NEGATIVE); URINE BENZODIAZEPINES NEGATIVE (NEGATIVE)
[2023-08-07 21:44] LABS: COCAINE, UR NEGATIVE (NEGATIVE); PHENCYCLIDINE,URINE NEGATIVE (NEGATIVE)
[2023-08-07] MEDS ORDERED: CARVEDILOL 12.5 MG TABLET (FP) PO SCH (22:00)
[2023-08-08 06:48] LABS: HEMATOCRIT 33.7 % (35.4-49); HEMOGLOBIN 11.2 GM/dL (11.7-16.9); MCH 28.4 pg (25.7-33.7); MCHC 33.1 g/dl (32.0-35.9); MEAN CELL VOLUME 85.6 fl (80-96); MEAN PLT VOLUME 8.7 fl (7.5-11.1); PLATELET COUNT 243 10^3/uL (134-434); RBC 3.94 M/mm3 (4.00-5.60); RDW 18.2 % (11.9-15.9); WHITE BLOOD COUNT 10.2 K/mm3 (4.0-10.0)
[2023-08-08 07:33] LABS: POTASSIUM 5.3 mmol/L (3.5-5.1)
[2023-08-08 07:39] LABS: BLOOD UREA NITROGEN 58.1 mg/dL (7-18); CALCIUM 8.6 mg/dL (8.5-10.1)
[2023-08-08 07:40] LABS: ALBUMIN 2.8 g/dl (3.4-5.0)
[2023-08-08 07:42] LABS: CREATININE 2.3 mg/dL (0.55-1.3); PHOSPHOROUS 2.9 mg/dL (2.5-4.9)
[2023-08-08 07:44] LABS: BILIRUBIN,TOTAL 0.3 mg/dL (0.2-1); TOT PROT 6.1 g/dl (6.4-8.2)
[2023-08-08] MEDS: PANTOPRAZOLE 40 MG TABLET PO SCH (09:10)
[2023-08-08] MEDS: TAMSULOSIN HCL 0.4 MG CAP PO SCH (09:10)
[2023-08-08] MEDS ORDERED: NIFEdipine E.R 60 MG TABLET PO SCH (10:00)
[2023-08-08] MEDS: SODIUM CHLORIDE 1,000 ML IV SCH (15:31)
[2023-08-08] MEDS: VANCOMYCIN/WATER FOR INJ (PEG) 1,000 MG/200 ML BAG IVPB ONE (15:31)
[2023-08-08] MEDS: SODIUM ZIRCONIUM CYCLOSILICATE (LOKELMA) 5 GM PACKET PO ONE (17:44)
[2023-08-08] MEDS: CARVEDILOL 12.5 MG TABLET (FP) PO SCH (21:45)
[2023-08-09 07:15] LABS: BASO % 0.2 % (0-2.0); EOS % 0.8 % (0-4.5); HEMATOCRIT 32.1 % (35.4-49); HEMOGLOBIN 10.5 GM/dL (11.7-16.9); LYMPH % 11.8 % (8-40); MCHC 32.8 g/dl (32.0-35.9); MEAN CELL VOLUME 85.3 fl (80-96); MEAN PLT VOLUME 8.8 fl (7.5-11.1); MONO % 5.6 % (3.8-10.2); NEUT % 81.6 % (42.8-82.8); PLATELET COUNT 240 10^3/uL (134-434); RBC 3.76 M/mm3 (4.00-5.60); RDW 18.3 % (11.9-15.9); WHITE BLOOD COUNT 15.4 K/mm3 (4.0-10.0)
[2023-08-09 08:12] LABS: POTASSIUM 4.5 mmol/L (3.5-5.1)
[2023-08-09 08:16] LABS: CALCIUM 8.4 mg/dL (8.5-10.1)
[2023-08-09 08:17] LABS: ALBUMIN 2.6 g/dl (3.4-5.0); BLOOD UREA NITROGEN 43.7 mg/dL (7-18)
[2023-08-09 08:20] LABS: CREATININE 1.6 mg/dL (0.55-1.3)
[2023-08-09 08:21] LABS: BILIRUBIN,TOTAL 0.2 mg/dL (0.2-1); TOT PROT 5.2 g/dl (6.4-8.2)
[2023-08-09] MEDS ORDERED: ATORVASTATIN CA 20 MG TABLET (FP) ONE (21:12)
[2023-08-10] MEDS: FINASTERIDE 5 MG TABLET (FP) PO SCH (09:35)
[2023-08-10 11:14] LABS: BASO % 0.6 % (0-2.0); EOS % 2.7 % (0-4.5); HEMATOCRIT 34.7 % (35.4-49); HEMOGLOBIN 11.4 GM/dL (11.7-16.9); LYMPH % 14.2 % (8-40); MCHC 32.9 g/dl (32.0-35.9); MEAN CELL VOLUME 85.3 fl (80-96); MEAN PLT VOLUME 8.6 fl (7.5-11.1); MONO % 10.4 % (3.8-10.2); NEUT % 72.1 % (42.8-82.8); PLATELET COUNT 293 10^3/uL (134-434); RBC 4.06 M/mm3 (4.00-5.60); RDW 18.5 % (11.9-15.9); WHITE BLOOD COUNT 8.2 K/mm3 (4.0-10.0)
[2023-08-10 11:46] LABS: POTASSIUM 4.3 mmol/L (3.5-5.1)
[2023-08-10 11:49] LABS: BLOOD UREA NITROGEN 35.8 mg/dL (7-18); CALCIUM 8.9 mg/dL (8.5-10.1)
[2023-08-10 11:52] LABS: CREATININE 1.5 mg/dL (0.55-1.3)
[2023-08-10] MEDS ORDERED: ALBUTEROL SO4 HFA INHALER IH PRN (14:01)
[2023-08-10] MEDS: SACUBITRIL/VALSARTAN 49 MG-51 MG TABLET PO SCH (21:21)
[2023-08-10 21:30] VITALS: RESP 18
[2023-08-11] MEDS: FUROSEMIDE 40 MG TABLET (FP) PO SCH (05:36)
[2023-08-11] MEDS: ISOSORBIDE MONONITRATE 30 MG TAB.SR.24H (FP) PO SCH (10:01)
[2023-08-11] MEDS: FLUTICASONE/UMECLIDIN/VILANTER(100-62.5-25 TRELEGY ELLIPTA) INAHLER IH SCH (10:01)
[2023-08-11] MEDS: NIFEdipine E.R 60 MG TABLET PO SCH (10:01)
[2023-08-11] MEDS: ASPIRIN COATED 81 MG TABLET.EC PO SCH (10:01)
[2023-08-11] MEDS: DOCUSATE SODIUM 100 MG CAPSULE (FP) PO SCH (10:01)
[2023-08-11] MEDS: FINASTERIDE 5 MG TABLET (FP) PO SCH (10:40)
[2023-08-11 14:53] VITALS: BP 100/60; PULSE 71; TEMP 98.4
== END 2023-08-11 17:06 | disposition home or self-care (01) | DRG 917 ==
LOC: JER 14:33 → JERBED 16:55 → J4W 19:51 → OBSVTOIN 08-09 11:14
PROVIDERS: ADMIT Internal Medicine; ATTEND Internal Medicine
DX: T40.601A Poisoning by unspecified narcotics, accidental (unintentional), initial encounter (principal); G93.41 Metabolic encephalopathy; E87.29 Other acidosis; I13.0 Hypertensive heart and chronic kidney disease with heart failure and stage 1 through stage 4 chronic kidney disease, or unspecified chronic kidney disease; I50.22 Chronic systolic (congestive) heart failure; N17.9 Acute kidney failure, unspecified; F11.23 Opioid dependence with withdrawal; J44.9 Chronic obstructive pulmonary disease, unspecified; E11.22 Type 2 diabetes mellitus with diabetic chronic kidney disease; N18.9 Chronic kidney disease, unspecified; N40.0 Benign prostatic hyperplasia without lower urinary tract symptoms; F17.200 Nicotine dependence, unspecified, uncomplicated; E78.5 Hyperlipidemia, unspecified; R41.82 Altered mental status, unspecified; G47.00 Insomnia, unspecified
CPT/HCPCS: 0241U-QW; 36415; 71045-TC-FY; 76775-TC; 80048; 80053; 80307; 81003; 82570; 82803; 82962; 83605; 83735; 84100; 84133; 84156; 84300; 84443; 84484; 85025; 85027; 85610; 85730; 86850; 86900; 86901; 87040; 87086; 97116-GP; 97161-GP; 99285-25; G0378; J1644

== ENCOUNTER 2023-08-19 16:53 | Observation (INO) | payer OTHER ==
[2023-08-19 17:11] VITALS: BMI 23.7
[2023-08-19] MEDS: SODIUM CHLORIDE 0.9% 500 ML INFUS.BAG IV ONE (17:56)
[2023-08-19 17:57] LABS: BASO % 0.9 % (0-2.0); EOS % 2.2 % (0-4.5); HEMATOCRIT 36.1 % (35.4-49); HEMOGLOBIN 11.7 GM/dL (11.7-16.9); LYMPH % 16.4 % (8-40); MCH 27.8 pg (25.7-33.7); MCHC 32.4 g/dl (32.0-35.9); MEAN CELL VOLUME 86.1 fl (80-96); MEAN PLT VOLUME 8.5 fl (7.5-11.1); MONO % 6.1 % (3.8-10.2); NEUT % 74.4 % (42.8-82.8); PLATELET COUNT 418 10^3/uL (134-434); RBC 4.19 M/mm3 (4.00-5.60); RDW 18.6 % (11.9-15.9)
[2023-08-19 18:02] LABS: INR 1.03 (0.83-1.09)
[2023-08-19 18:04] LABS: ACTIVATED PTT 25.5 SECONDS (25.2-36.5)
[2023-08-19 18:06] LABS: URINE APPEARANCE CLEAR; URINE BILIRUBIN NEGATIVE (NEGATIVE); URINE COLOR YELLOW; URINE GLUCOSE (UA) NEGATIVE (NEGATIVE); URINE KETONE NEGATIVE (NEGATIVE); URINE LEUK ESTERASE NEGATIVE (NEGATIVE); URINE NITRITE NEGATIVE (NEGATIVE); URINE PROTEIN NEGATIVE (NEGATIVE); URINE UROBILINOGEN 0.2 mg/dL (0.2-1.0)
[2023-08-19 18:29] LABS: CHLORIDE 104 mmol/L (98-107); POTASSIUM 5.4 mmol/L (3.5-5.1); SODIUM 134 mmol/L (136-145)
[2023-08-19 18:30] LABS: ANION GAP 2 mmol/L (4-13); BLOOD UREA NITROGEN 36.6 mg/dL (7-18); CALCIUM 8.7 mg/dL (8.5-10.1); CO2 27 mmol/L (21-32); GLUCOSE,RANDOM 113 mg/dL (74-106)
[2023-08-19 18:33] LABS: CREATININE 2.2 mg/dL (0.55-1.3); SGOT/AST 28 U/L (15-37); SGPT/ALT 32 U/L (13-61)
[2023-08-19 18:35] LABS: BILIRUBIN,TOTAL 0.3 mg/dL (0.2-1); TOT PROT 6.2 g/dl (6.4-8.2)
[2023-08-19 18:36] LABS: ALK PHOS 78 U/L (45-117)
[2023-08-19] MEDS ORDERED: ASPIRIN 81 MG CHEWABLE TABLETS ONE (19:05)
[2023-08-19] MEDS: ASPIRIN 81 MG CHEWABLE TABLETS PO ONE (19:08)
[2023-08-19 19:44] LABS: POTASSIUM 4.9 mmol/L (3.5-5.1)
[2023-08-19 19:45] LABS: CALCIUM 8.5 mg/dL (8.5-10.1)
[2023-08-19 19:46] LABS: BLOOD UREA NITROGEN 36.7 mg/dL (7-18)
[2023-08-19 19:49] LABS: CREATININE 2.2 mg/dL (0.55-1.3)
[2023-08-19] MEDS: SODIUM CHLORIDE 500 ML IV STA (22:54)
[2023-08-20] MEDS: SODIUM CHLORIDE 1,000 ML IV SCH (00:25)
[2023-08-20] MEDS ORDERED: ALBUTEROL SO4 HFA INHALER IH PRN (00:42)
[2023-08-20] MEDS: SODIUM CHLORIDE 1,000 ML IV STA (05:26)
[2023-08-20] MEDS: HEPARIN NA (PORCINE) 5,000 UNITS/ML 1ML VIAL SQ SCH (05:26)
[2023-08-20 05:50] VITALS: RESP 18
[2023-08-20 08:33] LABS: BASO % 1.1 % (0-2.0); EOS % 2.4 % (0-4.5); HEMATOCRIT 30.5 % (35.4-49); LYMPH % 20.6 % (8-40); MCHC 32.9 g/dl (32.0-35.9); MEAN CELL VOLUME 85.1 fl (80-96); MEAN PLT VOLUME 8.6 fl (7.5-11.1); NEUT % 68.9 % (42.8-82.8); PLATELET COUNT 308 10^3/uL (134-434); RBC 3.58 M/mm3 (4.00-5.60); RDW 18.2 % (11.9-15.9)
[2023-08-20 09:05] LABS: MAGNESIUM 1.8 mg/dL (1.8-2.4)
[2023-08-20 09:08] LABS: PHOSPHOROUS 4.4 mg/dL (2.5-4.9)
[2023-08-20] MEDS: PANTOPRAZOLE 40 MG TABLET PO SCH (09:56)
[2023-08-20] MEDS: FINASTERIDE 5 MG TABLET (FP) PO SCH (09:56)
[2023-08-20] MEDS: DOCUSATE SODIUM 100 MG CAPSULE (FP) PO SCH (09:56)
[2023-08-20] MEDS: FLUTICASONE/UMECLIDIN/VILANTER(100-62.5-25 TRELEGY ELLIPTA) INAHLER IH SCH (09:57)
[2023-08-20 09:59] LABS: POTASSIUM 4.5 mmol/L (3.5-5.1)
[2023-08-20] MEDS ORDERED: TAMSULOSIN HCL 0.4 MG CAP PO SCH (10:00)
[2023-08-20 10:03] LABS: BLOOD UREA NITROGEN 37.8 mg/dL (7-18); CALCIUM 7.7 mg/dL (8.5-10.1)
[2023-08-20] MEDS ORDERED: QUEtiapine FUMARATE 25 MG TABLET ONE (21:09)
[2023-08-20] MEDS: SACUBITRIL/VALSARTAN 24 MG-26 MG TABLET PO SCH (21:24)
[2023-08-20] MEDS: traZODone HCL 50 MG TABLET (FP) PO SCH (21:24)
[2023-08-20] MEDS: CARVEDILOL 6.25 MG TABLET (FP) PO SCH (21:24)
[2023-08-20] MEDS: TAMSULOSIN HCL 0.4 MG CAP PO SCH (21:25)
[2023-08-20] MEDS: ATORVASTATIN CA 40 MG TABLET (FP) PO SCH (21:25)
[2023-08-20] MEDS: QUEtiapine FUMARATE 50 MG TABLET PO SCH (21:27)
[2023-08-21 06:48] VITALS: BP 150/84; PULSE 85; TEMP 97.6
[2023-08-21 07:32] LABS: BASO % 1.2 % (0-2.0); HEMATOCRIT 32.4 % (35.4-49); HEMOGLOBIN 10.9 GM/dL (11.7-16.9); LYMPH % 27.3 % (8-40); MCH 28.3 pg (25.7-33.7); MCHC 33.5 g/dl (32.0-35.9); MEAN CELL VOLUME 84.5 fl (80-96); MEAN PLT VOLUME 8.6 fl (7.5-11.1); MONO % 8.9 % (3.8-10.2); NEUT % 58.6 % (42.8-82.8); PLATELET COUNT 322 10^3/uL (134-434); RBC 3.84 M/mm3 (4.00-5.60); RDW 17.8 % (11.9-15.9); WHITE BLOOD COUNT 6.5 K/mm3 (4.0-10.0)
[2023-08-21 07:45] LABS: POTASSIUM 4.4 mmol/L (3.5-5.1)
[2023-08-21 07:49] LABS: ALBUMIN 2.6 g/dl (3.4-5.0); CALCIUM 8.4 mg/dL (8.5-10.1)
[2023-08-21 07:52] LABS: CREATININE 1.7 mg/dL (0.55-1.3)
[2023-08-21 07:54] LABS: BILIRUBIN,TOTAL 0.4 mg/dL (0.2-1); TOT PROT 5.2 g/dl (6.4-8.2)
[2023-08-21] MEDS: SACUBITRIL/VALSARTAN 49 MG-51 MG TABLET PO SCH (09:47)
[2023-08-21] MEDS: CARVEDILOL 12.5 MG TABLET (FP) PO SCH (09:47)
[2023-08-21] MEDS: ISOSORBIDE MONONITRATE 30 MG TAB.SR.24H (FP) PO SCH (09:47)
== END 2023-08-21 12:30 | disposition home health service (06) ==
LOC: JER 16:53 → JERBED 21:30 → INTOOBSV 21:30 → J4S 08-20 01:39
PROVIDERS: ADMIT Internal Medicine; ATTEND Internal Medicine
PROC: 3E0337Z Introduction of Electrolytic and Water Balance Substance into Peripheral Vein, Percutaneous Approach (ICD-10-PCS; principal; 2023-08-19)
DX: E86.0 Dehydration (principal); F11.90 Opioid use, unspecified, uncomplicated; N17.9 Acute kidney failure, unspecified; E11.9 Type 2 diabetes mellitus without complications; I11.0 Hypertensive heart disease with heart failure; E78.5 Hyperlipidemia, unspecified; J44.9 Chronic obstructive pulmonary disease, unspecified; R77.8 Other specified abnormalities of plasma proteins; Z72.0 Tobacco use; Z99.81 Dependence on supplemental oxygen
CPT/HCPCS: 0241U-QW; 36415; 71045-TC-FY; 80048; 80053; 80307; 81003; 82550; 82570; 83735; 84100; 84300; 84484; 85025; 85610; 85730; 86850; 86900; 86901; 87086; 93005; 93010; 93306-TC; 96360; 96361; 97116-GP; 97161-GP; 99285-25; G0378; J1644

== ENCOUNTER 2023-12-12 14:58 | Observation (INO) | payer OTHER ==
[2023-12-12 15:41] VITALS: BP 139/71; PULSE 61; RESP 18; TEMP 97.1; BMI 23.3
[2023-12-12 17:30] LABS: BASO % 0.5 % (0-2.0); EOS % 0.7 % (0-4.5); HEMATOCRIT 36.8 % (35.4-49); HEMOGLOBIN 12.3 GM/dL (11.7-16.9); LYMPH % 17.4 % (8-40); MCH 27.8 pg (25.7-33.7); MCHC 33.4 g/dl (32.0-35.9); MEAN CELL VOLUME 83.1 fl (80-96); MEAN PLT VOLUME 9.3 fl (7.5-11.1); MONO % 5.4 % (3.8-10.2); PLATELET COUNT 214 10^3/uL (134-434); RBC 4.44 M/mm3 (4.00-5.60); WHITE BLOOD COUNT 9.8 K/mm3 (4.0-10.0)
[2023-12-12 17:37] LABS: INR 1.01 (0.83-1.09); PROTHROMBIN TIME (PATIENT) 11.6 SEC (9.7-13.0)
[2023-12-12 17:38] LABS: ALBUMIN 3.6 g/dl (3.4-5.0); CALCIUM 8.7 mg/dL (8.5-10.1)
[2023-12-12 17:39] LABS: BLOOD UREA NITROGEN 37.8 mg/dL (7-18)
[2023-12-12 17:40] LABS: ACTIVATED PTT 22.7 SECONDS (25.2-36.5)
[2023-12-12 17:43] LABS: BILIRUBIN,TOTAL 0.5 mg/dL (0.2-1); TOT PROT 6.4 g/dl (6.4-8.2)
[2023-12-12 17:46] LABS: N-TERMINAL BNP 697.2 pg/ml (5-450)
[2023-12-13] MEDS ORDERED: INSULIN ASPART SLIDING SCALE (NOVOLOG) 1 VIAL SQ SCH ×2 (07:00)
== END 2023-12-12 21:40 | disposition left against medical advice (07) ==
LOC: JER 14:58 → JERBED 18:56
PROVIDERS: ADMIT Internal Medicine; ATTEND Internal Medicine
DX: R07.9 Chest pain, unspecified (principal); F11.90 Opioid use, unspecified, uncomplicated; E78.5 Hyperlipidemia, unspecified; I11.0 Hypertensive heart disease with heart failure; J44.9 Chronic obstructive pulmonary disease, unspecified; E11.9 Type 2 diabetes mellitus without complications; F17.210 Nicotine dependence, cigarettes, uncomplicated
CPT/HCPCS: 0241U-QW; 36415; 71045-TC-FY; 80053; 83880; 84484; 85025; 85610; 85730; 93005; 93010; 99285-25; G0378

== ENCOUNTER 2024-03-01 17:51 | Emergency (ER) | payer OTHER ==
[2024-03-01 18:33] VITALS: BP 180/73; PULSE 63; RESP 20; TEMP 98.2; BMI 24.2
[2024-03-01 18:57] LABS: EOS % 1.5 % (0-4.5); HEMATOCRIT 38.5 % (35.4-49); HEMOGLOBIN 12.9 GM/dL (11.7-16.9); MCH 28.2 pg (25.7-33.7); MCHC 33.6 g/dl (32.0-35.9); MEAN CELL VOLUME 83.9 fl (80-96); MEAN PLT VOLUME 8.7 fl (7.5-11.1); MONO % 6.4 % (3.8-10.2); NEUT % 71.1 % (42.8-82.8); PLATELET COUNT 324 10^3/uL (134-434); RBC 4.59 M/mm3 (4.00-5.60); RDW 16.5 % (11.9-15.9); WHITE BLOOD COUNT 9.3 K/mm3 (4.0-10.0)
[2024-03-01 19:10] LABS: INR 0.95 (0.83-1.09); PROTHROMBIN TIME (PATIENT) 10.7 SEC (9.7-13.0)
[2024-03-01 19:12] LABS: ACTIVATED PTT 28.9 SECONDS (25.2-36.5)
[2024-03-01 19:32] LABS: POTASSIUM 4.7 mmol/L (3.5-5.1)
[2024-03-01 19:34] LABS: ALBUMIN 3.8 g/dl (3.4-5.0); BLOOD UREA NITROGEN 24.1 mg/dL (7-18); CALCIUM 9.1 mg/dL (8.5-10.1); MAGNESIUM 2.5 mg/dL (1.8-2.4)
[2024-03-01 19:37] LABS: CREATININE 1.4 mg/dL (0.55-1.3)
[2024-03-01 19:39] LABS: BILIRUBIN,TOTAL 0.5 mg/dL (0.2-1); TOT PROT 6.8 g/dl (6.4-8.2)
[2024-03-01] MEDS ORDERED: ACETAMINOPHEN 325 MG TABLET (FP) ONE (19:41)
[2024-03-01] MEDS: ACETAMINOPHEN 325 MG TABLET (FP) PO ONE (19:49)
== END 2024-03-01 20:59 | disposition home or self-care (01) ==
LOC: JER 17:51
DX: R07.2 Precordial pain (principal); R06.00 Dyspnea, unspecified; R05.9 Cough, unspecified; R09.81 Nasal congestion; F17.210 Nicotine dependence, cigarettes, uncomplicated; Z71.6 Tobacco abuse counseling; Z20.822 Contact with and (suspected) exposure to COVID-19
CPT/HCPCS: 0241U-QW; 36415; 71046-TC-FY; 80053; 83735; 83880; 84484; 85025; 85610; 85730; 93005; 93010; 99285-25

== ENCOUNTER 2024-04-01 14:28 | Inpatient (IN) | payer OTHER ==
[2024-04-01] MEDS ORDERED: methylPREDNISolone NA SUCC 125 MG/2 ML VIAL ONE (14:59)
[2024-04-01 15:00] VITALS: BMI 20.5
[2024-04-01] MEDS: methylPREDNISolone NA SUCC 125 MG/2 ML VIAL IVPB ONE (15:05)
[2024-04-01] MEDS: ALBUTEROL SO4 2.5/IPRATROPIUM 0.5 INH SOL 3 ML VIAL.NEB. NEB SCH (15:05)
[2024-04-01 15:17] LABS: VENOUS BASE EXCESS -5.7 mmol/L (-2-2); VENOUS O2 SATURATION 30.7 % (70-80); VENOUS PCO2 35.6 mmHg (38-52); VENOUS PH 7.347 (7.310-7.410)
[2024-04-01 15:20] LABS: BASO % 0.6 % (0-2.0); EOS % 0.1 % (0-4.5); HEMATOCRIT 44.4 % (35.4-49); HEMOGLOBIN 14.7 GM/dL (11.7-16.9); LYMPH % 6.4 % (8-40); MEAN CELL VOLUME 84.8 fl (80-96); MEAN PLT VOLUME 8.9 fl (7.5-11.1); MONO % 9.1 % (3.8-10.2); NEUT % 83.8 % (42.8-82.8); PLATELET COUNT 384 10^3/uL (134-434); RBC 5.24 M/mm3 (4.00-5.60); WHITE BLOOD COUNT 14.5 K/mm3 (4.0-10.0)
[2024-04-01 15:41] LABS: CHLORIDE 105 mmol/L (98-107); SODIUM 130 mmol/L (136-145)
[2024-04-01] MEDS ORDERED: ALBUTEROL SO4 2.5/IPRATROPIUM 0.5 INH SOL 3 ML VIAL.NEB. NEB ONE (15:41)
[2024-04-01 15:43] LABS: ALBUMIN 3.3 g/dl (3.4-5.0); BLOOD UREA NITROGEN 24.1 mg/dL (7-18); CALCIUM 9.6 mg/dL (8.5-10.1); CO2 19 mmol/L (21-32); GLUCOSE,RANDOM 143 mg/dL (74-106); MAGNESIUM 2.2 mg/dL (1.8-2.4)
[2024-04-01 15:46] LABS: CREATININE 1.8 mg/dL (0.55-1.3); SGOT/AST 86 U/L (15-37)
[2024-04-01 15:47] LABS: ANION GAP 7 mmol/L (4-13); POTASSIUM 8.4 mmol/L (3.5-5.1); SGPT/ALT 34 U/L (13-61)
[2024-04-01 15:48] LABS: INR 0.96 (0.83-1.09); PROTHROMBIN TIME (PATIENT) 11.1 SEC (9.7-13.0)
[2024-04-01 15:48] LABS: BILIRUBIN,TOTAL 0.9 mg/dL (0.2-1); TOT PROT 7.8 g/dl (6.4-8.2)
[2024-04-01 15:49] LABS: ALK PHOS 81 U/L (45-117)
[2024-04-01 16:36] LABS: POTASSIUM 4.8 mmol/L (3.5-5.1)
[2024-04-01 16:38] LABS: CALCIUM 9.1 mg/dL (8.5-10.1)
[2024-04-01 16:41] LABS: CREATININE 1.6 mg/dL (0.55-1.3)
[2024-04-01 17:02] LABS: N-TERMINAL BNP 8485.7 pg/ml (5-450)
[2024-04-01] MEDS: REMDESIVIR 200 MG in SODIUM CHLORIDE 250 ML IVPB ONE (18:27)
[2024-04-01] MEDS ORDERED: ACETAMINOPHEN 325 MG TABLET (FP) ONE (18:36)
[2024-04-01] MEDS: ACETAMINOPHEN 325 MG TABLET (FP) PO ONE (18:38)
[2024-04-01] MEDS ORDERED: DEXAMETHASONE SOD PHOSPHATE 10 MG/1 ML VIAL ONE (19:20)
[2024-04-01] MEDS: HEPARIN NA (PORCINE) 5,000 UNITS/ML 1ML VIAL SQ SCH (22:23)
[2024-04-01] MEDS: CARVEDILOL 12.5 MG TABLET (FP) PO SCH (22:23)
[2024-04-01] MEDS: MELATONIN 5 MG TABLETS PO ONE (22:23)
[2024-04-01] MEDS: ATORVASTATIN CA 40 MG TABLET (FP) PO SCH (22:23)
[2024-04-01] MEDS: INSULIN ASPART SLIDING SCALE (NOVOLOG) 1 VIAL SQ SCH (22:39)
[2024-04-02 06:55] LABS: HEMATOCRIT 38.6 % (35.4-49); HEMOGLOBIN 12.8 GM/dL (11.7-16.9); MCH 27.9 pg (25.7-33.7); MCHC 33.2 g/dl (32.0-35.9); MEAN CELL VOLUME 83.9 fl (80-96); MEAN PLT VOLUME 8.9 fl (7.5-11.1); PLATELET COUNT 355 10^3/uL (134-434); RDW 15.7 % (11.9-15.9); WHITE BLOOD COUNT 10.8 K/mm3 (4.0-10.0)
[2024-04-02 07:09] LABS: POTASSIUM 4.2 mmol/L (3.5-5.1)
[2024-04-02 07:16] LABS: ALBUMIN 2.9 g/dl (3.4-5.0); CALCIUM 8.8 mg/dL (8.5-10.1)
[2024-04-02 07:17] LABS: BLOOD UREA NITROGEN 31.4 mg/dL (7-18); MAGNESIUM 2.1 mg/dL (1.8-2.4)
[2024-04-02 07:19] LABS: CREATININE 1.8 mg/dL (0.55-1.3)
[2024-04-02 07:20] LABS: PHOSPHOROUS 4.8 mg/dL (2.5-4.9)
[2024-04-02 07:21] LABS: BILIRUBIN,TOTAL 0.5 mg/dL (0.2-1); TOT PROT 6.1 g/dl (6.4-8.2)
[2024-04-02] MEDS: DEXAMETHASONE SOD PHOSPHATE 10 MG/1 ML VIAL IVPUSH SCH (10:25)
[2024-04-02] MEDS: PANTOPRAZOLE 40 MG TABLET PO SCH (10:26)
[2024-04-02] MEDS: REMDESIVIR 100 MG in SODIUM CHLORIDE 250 ML IVPB SCH (10:26)
[2024-04-02] MEDS: ALBUTEROL SO4 2.5/IPRATROPIUM 0.5 INH SOL 3 ML VIAL.NEB. NEB SCH (15:45)
[2024-04-02] MEDS: MELATONIN 5 MG TABLETS PO ONE (22:50)
[2024-04-02] MEDS: SACUBITRIL/VALSARTAN 49 MG-51 MG TABLET PO SCH (22:50)
[2024-04-03] MEDS: ZOLPIDEM TARTRATE 5 MG TABLET PO ONE (01:00)
[2024-04-03] MEDS: TAMSULOSIN HCL 0.4 MG CAP PO SCH (09:18)
[2024-04-03] MEDS: FINASTERIDE 5 MG TABLET (FP) PO SCH (09:18)
[2024-04-03] MEDS: ASPIRIN 81 MG CHEWABLE TABLETS PO SCH (09:18)
[2024-04-03 10:17] LABS: HEMATOCRIT 37.9 % (35.4-49); HEMOGLOBIN 12.2 GM/dL (11.7-16.9); MCH 27.5 pg (25.7-33.7); MCHC 32.3 g/dl (32.0-35.9); MEAN PLT VOLUME 8.9 fl (7.5-11.1); PLATELET COUNT 331 10^3/uL (134-434); RBC 4.46 M/mm3 (4.00-5.60); WHITE BLOOD COUNT 21.5 K/mm3 (4.0-10.0)
[2024-04-03 10:25] LABS: POTASSIUM 4.1 mmol/L (3.5-5.1)
[2024-04-03 10:26] LABS: CALCIUM 8.7 mg/dL (8.5-10.1)
[2024-04-03 10:27] LABS: BLOOD UREA NITROGEN 49.4 mg/dL (7-18)
[2024-04-03 10:30] LABS: CREATININE 1.7 mg/dL (0.55-1.3)
[2024-04-03 12:15] LABS: ANISOCYTOSIS 0; HELMET CELLS 0; HOWELL-JOLLY BODIES 0; MACROCYTOSIS 0; OVALOCYTE 0; ROULEAU 0; SICKELED CELLS 0; TARGET CELLS 0; TEAR DROP CELLS 0; TOXIC GRANULATION 0
[2024-04-03 14:10] VITALS: BP 132/62; PULSE 62; RESP 18; TEMP 97.2
== END 2024-04-03 16:09 | disposition home or self-care (01) | DRG 177 ==
LOC: JER 14:28 → JERBED 15:52 → J4W 20:43
PROVIDERS: ADMIT Internal Medicine; ATTEND Internal Medicine
PROC: XW033E5 Introduction of Remdesivir Anti-infective into Peripheral Vein, Percutaneous Approach, New Technology Group 5 (ICD-10-PCS; principal; 2024-04-01)
DX: U07.1 COVID-19 (principal); J96.01 Acute respiratory failure with hypoxia; I50.22 Chronic systolic (congestive) heart failure; I13.0 Hypertensive heart and chronic kidney disease with heart failure and stage 1 through stage 4 chronic kidney disease, or unspecified chronic kidney disease; E78.5 Hyperlipidemia, unspecified; J44.9 Chronic obstructive pulmonary disease, unspecified; F17.200 Nicotine dependence, unspecified, uncomplicated; N40.0 Benign prostatic hyperplasia without lower urinary tract symptoms; N18.9 Chronic kidney disease, unspecified; E11.22 Type 2 diabetes mellitus with diabetic chronic kidney disease
CPT/HCPCS: 0241U-QW; 36415; 71045-TC-FY; 71046-TC-FY; 80048; 80053; 82803; 82962; 83735; 83880; 84100; 84484; 85025; 85027; 85610; 85730; 86140; 93005; 93010; 94640; 99285-25; J0248; J1100; J1644